=== PATIENT | female | born 1975 | race Two or more races ===

== ENCOUNTER 2021-05-11 14:02 | Outpatient (REF) | payer MEDICAID, SELFPAY ==
--- NOTE | ~2021-05-11 | MM_ITS ---
EXAMINATION: MM SCREENING DIGITAL BREAST TOMOSYNTHESIS, BILATERAL CLINICAL INFORMATION: Screening. Asymptomatic. The lifetime risk of breast cancer based on the Tyrer-Cuzick Model is 14%. COMPARISON: Mammography: None TECHNIQUE: Digital breast tomosynthesis is performed in both the craniocaudal and mediolateral oblique views along with computer-aided detection (CAD). Synthesized 2D images are generated from the tomosynthesis. FINDINGS: The breasts are heterogeneously dense, which may obscure small masses (ACR BI-RADS breast composition Category c). There are no significant masses, abnormal calcifications, or other abnormalities. MM/MM tomosynthesis screening BI IMPRESSION: No mammographic evidence of malignancy. ASSESSMENT: BI-RADS 1: Negative RECOMMENDATION: Routine annual mammography screening. This patient's information was entered into a reminder system with a target due date for their next mammogram.
== END 2021-05-11 14:03 | disposition home or self-care (01) ==
LOC: HO.MAMMO 14:02
PROVIDERS: Visit Provider Internal Medicine
DX: Z12.31 Encounter for screening mammogram for malignant neoplasm of breast (principal)
CPT/HCPCS: 77063; 77067

== ENCOUNTER 2021-06-01 14:13 | Outpatient (REF) | payer MEDICAID, SELFPAY ==
--- NOTE | ~2021-06-01 | US_ITS ---
EXAMINATION: US PELVIS CLINICAL INFORMATION: Excessive and frequent menstruation COMPARISON: None TECHNIQUE: Ultrasound of the pelvis is performed using both transabdominal and transvaginal transducers along with Doppler. Transvaginal imaging is performed due to inadequate visualization transabdominally. FINDINGS: The uterus is anteverted and measures 8.8 x 4.4 x 4.9 cm in dimension. No focal uterine lesion is seen. Endometrial thickness is normal measuring 0.4 cm. The right ovary measures 2.6 x 1.6 x 2.2 cm. There is a 2.3 x 1.5 x 2.1 cm complex right ovarian cyst with internal echoes. The left ovary measures 2.3 x 1.5 x 1.9 cm. There is a 1.5 x 1.4 x 1.3 cm simple left ovarian cyst. There is no fluid in the pelvis. US/US pelvic and transvaginal IMPRESSION: Normal-appearing uterus. 2.3 x 1.5 x 2.1 cm complex right ovarian cyst with internal echoes and small 1.5 cm simple left ovarian cyst.
== END 2021-06-01 14:14 | disposition home or self-care (01) ==
LOC: HO.HMGCX 14:13
PROVIDERS: Visit Provider Advanced Practice Midwife
DX: N92.0 Excessive and frequent menstruation with regular cycle (principal)
CPT/HCPCS: 76830; 76856

== ENCOUNTER 2021-07-12 14:25 | Outpatient (REF) | payer MEDICAID, SELFPAY ==
--- NOTE | ~2021-07-12 | US_ITS ---
EXAMINATION: US PELVIS CLINICAL INFORMATION: Right ovarian cyst COMPARISON: Pelvic ultrasound on 06/01/2021 TECHNIQUE: Ultrasound of the pelvis is performed using both transabdominal and transvaginal transducers along with Doppler. Transvaginal imaging is performed due to inadequate visualization transabdominally. FINDINGS: Uterus: The uterus is anteverted and measures 8.7 x 4.5 x 4.7 cm. The double wall endometrial thickness is 0.5 mm. The uterus is smooth in contour and has normal myometrial echogenicity. No visible fibroid. Adnexa: Both ovaries are visualized. There is normal color flow to the adnexa. There is no ovarian torsion. There is no pelvic ascites or fluid collection. Right ovary measures 2.4 x 1.1 x 1.7 cm. There is a 1.5 cm dominant follicle in the right ovary. Left ovary measures 1.9 x 1.0 x 1.5 cm. There is a 0.7 cm dominant follicle in left ovary. There are bilateral dilated periuterine veins. US/US pelvic and transvaginal IMPRESSION: 1. Bilateral ovarian follicles. 2. Dilated periuterine veins.
== END 2021-07-12 14:26 | disposition home or self-care (01) ==
LOC: HO.HMGCX 14:25
PROVIDERS: Visit Provider Advanced Practice Midwife
DX: N83.291 Other ovarian cyst, right side (principal)
CPT/HCPCS: 76830; 76856

== ENCOUNTER 2021-10-26 13:27 | Outpatient (REF) | payer MEDICAID, SELFPAY ==
[2021-10-26 17:03] LABS: CT PCR NOT DETECTED (Not Detect.); NG PCR NOT DETECTED (Not Detect.)
== END 2021-10-26 13:28 | disposition home or self-care (01) ==
LOC: HO.LAB 13:27
PROVIDERS: Visit Provider Obstetrics & Gynecology
DX: N93.9 Abnormal uterine and vaginal bleeding, unspecified (principal)
CPT/HCPCS: 87491; 87591; 99212

== ENCOUNTER 2021-11-20 13:06 | Outpatient (REF) | payer MEDICAID, SELFPAY | END 2021-11-20 13:07 | disposition home or self-care (01) | LOC: HO.LAB 13:06 | PROVIDERS: Visit Provider Obstetrics & Gynecology | DX: N93.9 Abnormal uterine and vaginal bleeding, unspecified (principal) | CPT/HCPCS: 58100; 81025; 88305 ==

== ENCOUNTER 2021-12-07 13:57 | Outpatient (REF) | payer MEDICAID, SELFPAY ==
[2021-12-07 15:14] LABS: Hematocrit 32.6 % (37.0-47.0); Hemoglobin 10.9 g/dl (12.0-16.0); Mean Corpuscular HGB Conc 33.4 g/dl (31.0-35.0); Mean Corpuscular Hemoglobin 30.9 pg (27.0-33.0); Mean Corpuscular Volume 92.4 fL (80.0-98.0); Platelet Count 229 X10*3/uL (160-400); Red Blood Count 3.53 X10*6/uL (4.20-5.50); Red Cell Distribution Width 13.8 % (11.0-16.0); White Blood Count 7.3 X10*3/uL (4.8-10.8)
[2021-12-07 16:10] LABS: HCG Quantitative < 2 mIU/mL; TSH reflex Free T4 0.47 uIU/mL (0.32-4.0)
== END 2021-12-07 13:58 | disposition home or self-care (01) ==
LOC: HO.LAB 13:57
PROVIDERS: Visit Provider Obstetrics & Gynecology
DX: N93.9 Abnormal uterine and vaginal bleeding, unspecified (principal)
CPT/HCPCS: 36415; 84443; 84702; 85027; 99212

== ENCOUNTER 2022-05-17 13:37 | Outpatient (REF) | payer MEDICAID, SELFPAY ==
--- NOTE | ~2022-05-17 | MM_ITS ---
EXAMINATION: MM SCREENING DIGITAL BREAST TOMOSYNTHESIS, BILATERAL CLINICAL INFORMATION: Screening. Asymptomatic. COMPARISON: Mammography: 05/11/2021; outside mammography 07/23/2016, 1014 ([place]) TECHNIQUE: Digital breast tomosynthesis is performed in both the craniocaudal and mediolateral oblique views along with computer-aided detection (CAD). Synthesized 2D images are generated from the tomosynthesis. FINDINGS: There are scattered areas of fibroglandular density (ACR BI-RADS breast composition Category b). There are no significant masses, abnormal calcifications, or other abnormalities. Parenchymal pattern is similar to prior studies. There is no developing density or architectural abnormality. The axilla and skin contours are unremarkable. No significant changes. MM/MM tomosynthesis screening BI IMPRESSION: No mammographic evidence of malignancy. ASSESSMENT: BI-RADS 1: Negative RECOMMENDATION: Routine annual mammography screening. This patient's information was entered into a reminder system with a target due date for their next mammogram.
== END 2022-05-17 13:38 | disposition home or self-care (01) ==
LOC: HO.MAMMO 13:37
PROVIDERS: PCP Internal Medicine; Visit Provider Internal Medicine
DX: Z12.31 Encounter for screening mammogram for malignant neoplasm of breast (principal)
CPT/HCPCS: 77063; 77067

== ENCOUNTER 2022-11-05 13:23 | Outpatient (REF) | payer MEDICAID, SELFPAY ==
[2022-11-06 10:09] LABS: CT PCR NOT DETECTED (Not Detect.); NG PCR NOT DETECTED (Not Detect.)
[2022-11-08 04:44] LABS: HPV mRNA E6/E7 rflx Not Detected (Not Detected)
== END 2022-11-05 13:24 | disposition home or self-care (01) ==
LOC: HO.LNP 13:23
PROVIDERS: PCP Internal Medicine; Visit Provider Obstetrics & Gynecology
DX: Z01.419 Encounter for gynecological examination (general) (routine) without abnormal findings (principal); Z11.51 Encounter for screening for human papillomavirus (HPV); N93.9 Abnormal uterine and vaginal bleeding, unspecified
CPT/HCPCS: 0353U; 81025; 87624; 88142

== ENCOUNTER 2022-11-16 12:52 | Outpatient (REF) | payer MEDICAID, SELFPAY ==
--- NOTE | ~2022-11-16 | US_ITS ---
EXAMINATION: US PELVIS CLINICAL INFORMATION: Abnormal uterine bleeding, 47-year-old, LMP about a month ago. COMPARISON: 07/12/2021 TECHNIQUE: Ultrasound of the pelvis is performed using both transabdominal and transvaginal transducers along with Doppler. Transvaginal imaging is performed due to inadequate visualization transabdominally. FINDINGS: Uterus: The uterus is anteverted and measures 7.7 x 3.6 x 4.9 cm. The double wall endometrial thickness is 4 mm mm. The uterus is smooth in contour and has normal myometrial echogenicity. Fundal intramural 1.2 cm fibroid. A posterior uterine body 2.4 cm intramural fibroid. Adnexa: Both ovaries are visualized. There is normal color flow to the adnexa. There is no ovarian torsion. There is no pelvic ascites or fluid collection. Right ovary measures 2.2 x 1.0 x 1.9 cm. Left ovary measures 2.4 x 1.6 x 2.0 cm. Redemonstration of dilated periuterine veins. US/US pelvic and transvaginal IMPRESSION: * Uterine fibroids. * Redemonstration of dilated periuterine veins.
== END 2022-11-16 12:53 | disposition home or self-care (01) ==
LOC: HO.US 12:52
PROVIDERS: PCP Internal Medicine; Visit Provider Obstetrics & Gynecology
DX: N93.9 Abnormal uterine and vaginal bleeding, unspecified (principal)
CPT/HCPCS: 76830; 76856

== ENCOUNTER 2022-12-05 14:22 | Outpatient (REF) | payer MEDICAID, SELFPAY | END 2022-12-05 14:23 | disposition home or self-care (01) | LOC: HO.LNP 14:22 | PROVIDERS: PCP Internal Medicine; Visit Provider Obstetrics & Gynecology | DX: N93.9 Abnormal uterine and vaginal bleeding, unspecified (principal) | CPT/HCPCS: 58100; 88305 ==

== ENCOUNTER → 2023-01-16 10:15 | Outpatient (BNVA) | payer MEDICAID, SELFPAY | PROVIDERS: PCP Internal Medicine; Visit Provider Obstetrics & Gynecology | DX: N93.9 Abnormal uterine and vaginal bleeding, unspecified (principal); D25.9 Leiomyoma of uterus, unspecified | CPT/HCPCS: 99212 ==

== ENCOUNTER 2023-02-07 13:28 | Outpatient (REF) | payer MEDICAID, SELFPAY ==
[2023-02-07 14:33] LABS: Estimated Average Glucose 105 mg/dL; Hemoglobin A1c % 5.3 %
[2023-02-07 14:44] LABS: Appearance Urine Cloudy; Color Urine Yellow; Glucose Urine UA Negative (Negative); Leukocyte Esterase Urine Negative (Negative); Nitrite Urine Negative (Negative); PH 5.5 (5.0-9.0); Urine Blood Negative (Negative); Urine Ketones Trace mg/dL (Negative); Urine Protein Negative (Neg-Trace)
[2023-02-07 18:42] LABS: Alanine Aminotransferase 11 U/L (0-31); Albumin Level 4.2 g/dL (3.5-5.0); Alkaline Phosphatase 83 U/L (39-117); Anion Gap 15 (12-20); Aspartate Amino Transferase 16 U/L (5-31); Bilirubin Total 0.3 mg/dL (0.0-1.0); Blood Urea Nitrogen 21 mg/dL (9-16); Calcium 9.2 mg/dL (8.4-10.2); Carbon Dioxide 20 mmol/L (22-29); Chloride 107 mmol/L (96-108); Estimated Glomerular Filt Rate > 60; Glucose Random 93 mg/dL (60-115); Potassium 3.8 mmol/L (3.3-5.1); Sodium 138 mmol/L (135-145); Total Protein 7.3 g/dL (6.5-8.0)
== END 2023-02-07 13:29 | disposition home or self-care (01) ==
LOC: CF 13:28
PROVIDERS: Visit Provider Internal Medicine
DX: R35.89 Other polyuria (principal)
CPT/HCPCS: 36415; 80053; 81003; 83036

== ENCOUNTER 2023-02-09 13:58 | Emergency (ER) | payer MEDICAID, SELFPAY ==
--- NOTE | 2023-02-09 14:01 | ED.GENADULT ---
HPI - General Adult General Chief complaint: Back Pain/Injury Stated complaint: L side pain Time Seen by Provider: 02/09/23 14:28 Source: patient and RN notes reviewed Mode of arrival: ambulatory Limitations: no limitations History of Present Illness HPI narrative: This is a [id number]-female presenting to the emergency department with complaints of right sided back pain x 2 days. Pt states that yesterday she had noticed some pain to her back. She staaates that while she was reaching up to clean her ceiling fan, she immediately had worsening right sided back pain. Pt reports pain with movement and with palpation. She has takaen tylenol without any relief. No fevers, cchills, chest pain, shortness of breath, abdominal pain, nausea, vomiting or diarrhea. No dysuria, hematuria, or urinary urgency, or frequency. complaint: back pain Onset (ago): day(s) Location: back Radiation: non-radiation Severity: moderate Quality: aching Pain Consistency: constant Relieving factors: none Exacerbating factors: none Associated symptoms: denies other symptoms Treatments prior to arrival: none Related Data Home Medications Medication Instructions Recorded Confirmed ibuprofen 800 mg tablet 800 mg PO DAILY PRN mild pain 11/05/22 mirtazapine 15 mg tablet 15 mg PO BEDTIME 11/05/22 Previous Rx's Medication Instructions Recorded ferrous sulfate 325 mg (65 mg 325 mg PO DAILY 30 days #30 tabs 12/07/21 iron) tablet,delayed release acetaminophen 325 mg capsule 650 mg PO Q6H PRN pain #30 caps 02/09/23 (Tylenol) cyclobenzaprine 5 mg tablet 5 mg PO TID PRN muscle spasm #14 02/09/23 tabs ibuprofen 600 mg tablet 600 mg PO Q6H PRN pain #30 tabs 02/09/23 Allergies Allergy/AdvReac Type Severity Reaction Status Date / Time No Known Allergies Allergy Verified 02/09/23 14:08 [No Known Allergies*] Review of Systems Review of Systems: Yes all other systems are reviewed and are negative Constitutional: Constitutional: Reports as per HPI [facility] Past Medical History Medical History Migraines Surgical History Hx of colonoscopy Family History Family History Paternal Aunt Breast CA Mother Colon cancer Father Prostate cancer Social History Social History Alcohol intake: current Alcohol intake frequency: a few times a month Patient Tobacco Use Status: Current someday Tobacco user Smoked in Last 30 Days: Yes Use of substances other than those prescribed or required for medical reasons: Yes Substance Use Type: Marijuana Advance Directives: No Advance Directives Information Provided: No Physical Exam ED Vital Signs: Vital Signs - 24 hr 02/09/23 14:03 Temperature 97.3 F Pulse Rate 86 Respiratory Rate 20 Blood Pressure 109/46 L Pulse Oximetry 97 Oxygen Delivery Method Room Air BMI result Body Mass Index 22.4 Const General: cooperative, comfortable and no acute distress Orientation/consciousness: patient oriented x3 Limitations: no limitations HENMT Head: Yes normal to inspection, Yes normocephalic and Yes atraumatic Ears: hearing grossly normal bilaterally General nose exam: Normal external nose present Face and sinus: Yes normal facial exam Mouth: Normal oral and palatal mucosa present, oropharynx normal and moist mucous membranes Throat: Yes posterior oropharynx normal Eyes General: appearance normal, both eyes and all related structures Eyelids: Yes eyelids normal Conjunctivae: conjunctivae normal Sclerae: sclerae normal Pupils: Equal, round and reactive pupils present EOM: EOMs intact bilaterally Neck Neck: Yes normal visual inspection, Yes full ROM and Yes no lymphadenopathy Lymphatic: no lymphadenopathy noted Chest Chest palpation & inspection: normal inspection of the chest Resp Effort & Inspection: normal respiratory effort and able to speak in complete sentences Auscultation: clear to auscultation bilaterally, no crackles, no rales, no rhonchi and no wheezes Cardio Rate: regular rate Rhythm: regular rhythm Heart sounds: S1 normal heart sound present and S2 normal heart sound present GI Inspection: Yes normal to inspection Back/Spine/Pelvis Other: Right lumbar paraspinous muscle TTP with spasm noted. patellar reflexes 2+ bilaterally. Skin General skin exam: no rashes or lesions noted Trauma: no lacerations or abrasions Wounds: no wounds Neuro General: patient oriented x3 and moves all extremities Cranial nerves: Yes Equal, round and reactive pupils present Extrem General: Yes normal to inspection Right upper extremity: normal to inspection Left upper extremity: normal to inspection Right lower extremity: normal to inspection Left lower extremity: normal to inspection Course Course Course Narrative: This is a rapid medical exam: Additional HPI, ROS, PE not included below will be deferred to primary provider. Patient is a 47-marjorie-old female with history of abnormal uterine bleeding, uterine myoma presenting to the emergency department with complaint of right flank pain since last night. States that she feels as though she pulled a muscle, was cleaning an overhead fan yesterday feels symptoms may be related. Has applied heat, taken ibuprofen without relief. Denies any urinary symptoms. Reports that she saw her PCP Saturday, told iron was low, did not get UA results. Does reporting having foul smelling vaginal discharge recently which has since resolved, has already been tested and is awaiting results. Plan: UA, labs Reevaluation(s) Reevaluation #1: UA without any hematuria or evidence of infection. Labs unremarkable. Beta HCG quant is 4. Pt's last menstrual cycle was 3 months ago but pt reports that she is approaching perimenopause phase. urine HCG is negative. This is just above our negative marker for HCG, I advised patient to have repeat blood levels performed outpatient in one week. Pt has no suprapubic TTP and is seeing her OBGYN at this time. No current vaginal discharge or bleeding. D/C patient with MSK instructions. Given return precautions if any new or worsening symptoms occur. Medications Administered Discontinued Medications Generic Name Dose Route Start Last Admin Trade Name Joellen PRN Reason Stop Dose Admin Diazepam 2 mg 02/09/23 16:47 02/09/23 16:57 Diazepam 2 Mg Tablet PO 02/09/23 16:48 2 mg ONCE ONE Administration Medical Decision Making Medical Decision Making [facility] Narrative: This is a 2-kssy[age]ev[age]-female presenting to the emergency department with complaints of right sided back pain x 2 days. Pt has TTP over right lumbar musculature. Pt has no urinary symptoms. Differential diagnoses includes lumbago versus musculoskeletal spasm / strain. No back pain red flags on history or physical. Unlikely cauda equina syndrome (no bowel or urinary incontinence/retention, no saddle anesthesia, no distal weakness), pyelonephritis (afebrile, no CVAT, no urinary symptoms). Given the clinical picture, no indication for imaging at this time. Differential Diagnosis Differential Diagnoses: The differential diagnosis associated with the presentation includes See above Lab Data [facility] Lab Attestation statement: I reviewed the patient's lab results. 02/09/23 14:19 02/09/23 14:19 Labs: Lab Results 02/09/23 02/09/23 02/09/23 Range/Units 14:19 14:19 14:19 WBC 7.1 (4.8-10.8) X10*3/uL RBC 4.06 L (4.20-5.50) X10*6/uL Hgb 12.6 (12.0-16.0) g/dl Hct 36.6 L (37.0-47.0) % MCV 90.1 (80.0-98.0) fL MCH 31.0 (27.0-33.0) pg MCHC 34.4 (31.0-35.0) g/dl RDW 13.1 (11.0-16.0) % Plt Count 268 (160-400) X10*3/uL MPV 9.4 (9.4-12.3) fL Immature Gran % (Auto) 0.3 (0.0-0.4) % Neut % (Auto) 54.6 (45-73) % Lymph % (Auto) 35.0 (20-40) % [place] % (Auto) 5.8 (2-11) % Eos % (Auto) 3.0 (0-4) % Baso % (Auto) 1.3 (0-2) % Lymph # (Auto) 2.5 (1.2-4.9) X10*3/uL [place] # (Auto) 0.4 (0.1-1.2) X10*3/uL Eos # (Auto) 0.2 (0.0-0.4) X10*3/uL Baso # (Auto) 0.1 (0.0-0.2) X10*3/uL Abs Immat Gran (auto) 0.02 (0.00-0.03) X10*3/uL Absolute Neuts (auto) 3.9 (2.0-8.3) x10*3/uL Absolute Nucleated RBC 0.000 (0.0-0.012) X10*3/uL Nucleated RBC % (auto) 0.0 (0.0-0.2) /100WBC Sodium 140 (135-145) mmol/L Potassium 4.2 (3.3-5.1) mmol/L Chloride 108 (96-108) mmol/L Carbon Dioxide 22 (22-29) mmol/L Anion Gap 14 (12-20) BUN 20 H (9-16) mg/dL Creatinine 0.75 (0.5-1.4) mg/dL Estim Creat Clear Calc 74.1 Estimated GFR > 60 Random Glucose 128 H (60-115) mg/dL Calcium 9.9 D (8.4-10.2) mg/dL Total Bilirubin 0.5 (0.0-1.0) mg/dL AST 22 (5-31) U/L ALT 14 (0-31) U/L Alkaline Phosphatase 83 (39-117) U/L Total Protein 7.5 (6.5-8.0) g/dL Albumin 4.2 (3.5-5.0) g/dL Beta HCG, Quant 4 mIU/mL Urine Color Urine Appearance Urine pH (5.0-9.0) Ur Specific [place] (1.005-1.025) Urine Protein (Neg-Trace) mg/dL Urine Glucose (UA) (Negative) mg/dL Urine Ketones (Negative) mg/dL Urine Blood (Negative) Urine Nitrite (Negative) Ur Leukocyte Esterase (Negative) Urine Test (NEGATIVE) 02/09/23 02/09/23 Range/Units 15:18 15:18 WBC (4.8-10.8) X10*3/uL RBC (4.20-5.50) X10*6/uL Hgb (12.0-16.0) g/dl Hct (37.0-47.0) % MCV (80.0-98.0) fL MCH (27.0-33.0) pg MCHC (31.0-35.0) g/dl RDW (11.0-16.0) % Plt Count (160-400) X10*3/uL MPV (9.4-12.3) fL Immature Gran % (Auto) (0.0-0.4) % Neut % (Auto) (45-73) % Lymph % (Auto) (20-40) % [place] % (Auto) (2-11) % Eos % (Auto) (0-4) % Baso % (Auto) (0-2) % Lymph # (Auto) (1.2-4.9) X10*3/uL [place] # (Auto) (0.1-1.2) X10*3/uL Eos # (Auto) (0.0-0.4) X10*3/uL Baso # (Auto) (0.0-0.2) X10*3/uL Abs Immat Gran (auto) (0.00-0.03) X10*3/uL Absolute Neuts (auto) (2.0-8.3) x10*3/uL Absolute Nucleated RBC (0.0-0.012) X10*3/uL Nucleated RBC % (auto) (0.0-0.2) /100WBC Sodium (135-145) mmol/L Potassium (3.3-5.1) mmol/L Chloride (96-108) mmol/L Carbon Dioxide (22-29) mmol/L Anion Gap (12-20) BUN (9-16) mg/dL Creatinine (0.5-1.4) mg/dL Estim Creat Clear Calc Estimated GFR Random Glucose (60-115) mg/dL Calcium (8.4-10.2) mg/dL Total Bilirubin (0.0-1.0) mg/dL AST (5-31) U/L ALT (0-31) U/L Alkaline Phosphatase (39-117) U/L Total Protein (6.5-8.0) g/dL Albumin (3.5-5.0) g/dL Beta HCG, Quant mIU/mL Urine Color Yellow Urine Appearance Cloudy Urine pH 5.5 (5.0-9.0) Ur Specific [place] 1.025 (1.005-1.025) Urine Protein Negative (Neg-Trace) mg/dL Urine Glucose (UA) Negative (Negative) mg/dL Urine Ketones Trace (Negative) mg/dL Urine Blood Negative (Negative) Urine Nitrite Negative (Negative) Ur Leukocyte Esterase Negative (Negative) Urine Test NEGATIVE (NEGATIVE) Radiology Impression Discussion of test interpretation with radiology: I have reviewed the radiologist's reading. External Record Review External record reviewed: Inpatient record, Office record, Outpatient record, Prior outpatient labs, Prior outpatient radiology, Primary care record and Outside ED record Discharge Plan Discharge Clinical Impression: Lumbar paraspinal muscle spasm Patient Disposition: Home, Self-Care Instructions: Muscle Spasm (ED) Additional Instructions: Your symptoms are likely due to muscle spasms. Your urine did not show signs of infection. Your blood hCG level was slightly elevated. Please have this rechecked in 1 week at your primary care office or OBGYN. Take prescribed medication as directed. Gentle stretching massage can help with your symptoms. Ice or heat the area as needed symptomatic relief. If any new or worsening symptoms occur including but not limited to chest pain, shortness of breath, urinary symptoms, abdominal pain, please return for re-evaluation. Prescriptions: New cyclobenzaprine 5 mg tablet 5 mg PO TID PRN (Reason: muscle spasm) Qty: 14 0RF ibuprofen 600 mg tablet 600 mg PO Q6H PRN (Reason: pain) Qty: 30 0RF acetaminophen [Tylenol] 325 mg capsule 650 mg PO Q6H PRN (Reason: pain) Qty: 30 0RF No Action ferrous sulfate 325 mg (65 mg iron) tablet,delayed release (DR/EC) 325 mg PO DAILY 30 Days Qty: 30 1RF mirtazapine 15 mg tablet 15 mg PO BEDTIME ibuprofen 800 mg tablet 800 mg PO DAILY PRN (Reason: mild pain) Interventions: ED Discharge Assessment Last Done: 02/09/23 16:59 Discharge Date/Time: 02/09/23 17:03
[2023-02-09 14:03] VITALS: BP 109/46; PULSE 86; RESP 20; TEMP 36.3; O2SAT 97; BMI 22.4
[2023-02-09 14:24] LABS: Basophils Absolute Auto 0.1 X10*3/uL (0.0-0.2); Basophils Percent Auto 1.3 % (0-2); Eosinophils Absolute Auto 0.2 X10*3/uL (0.0-0.4); Hematocrit 36.6 % (37.0-47.0); Hemoglobin 12.6 g/dl (12.0-16.0); Imm Gran Abs Auto 0.02 X10*3/uL (0.00-0.03); Imm Gran Pct Auto 0.3 % (0.0-0.4); Lymphocytes Absolute Auto 2.5 X10*3/uL (1.2-4.9); MANUAL DIFF FLAG NO; Mean Corpuscular HGB Conc 34.4 g/dl (31.0-35.0); Mean Corpuscular Volume 90.1 fL (80.0-98.0); Mean Platelet Volume 9.4 fL (9.4-12.3); Monocytes Absolute Auto 0.4 X10*3/uL (0.1-1.2); Monocytes Percent Auto 5.8 % (2-11); Neutrophils Absolute Auto 3.9 x10*3/uL (2.0-8.3); Neutrophils Percent Auto 54.6 % (45-73); Platelet Count 268 X10*3/uL (160-400); Red Blood Count 4.06 X10*6/uL (4.20-5.50); Red Cell Distribution Width 13.1 % (11.0-16.0); White Blood Count 7.1 X10*3/uL (4.8-10.8)
--- OUTSIDE RECORDS SUMMARY | 2023-02-09 14:30 | XMS_ITS ---
Author Name Alli Schaefer Address [address] [place] [address] Organization [facility] Address [address] [place] [address] Care Team Providers Care Police Booking Officer Name Role Phone Alli Schaefer Unavailable [phone] PROBLEMS Type Condition ICD9-CM Code YCE75-SU Code Onset Dates Condition Status SNOMED Code Problem Encounter for screening for malignant neoplasm of colon Z12.11 Active 084782469 Problem History of adenomatous polyp of colon Z86.010 Active 490599910 Problem Preprocedural examination Z01.818 Active [id number] Problem Family history of colon cancer Z80.0 Active [id number] ALLERGIES No Known Allergies ENCOUNTERS Encounter Location Date Diagnosis [facility] [address] [place] [id number] Dec, Preprocedural examination Z01.818 ; History of adenomatous polyp of colon Z86.010 ; Encounter for screening for malignant neoplasm of colon Z12.11 and Family history of colon cancer Z80.0 [facility] [address] [place] [id number] Sep, [facility] [address] [place] [phone] Jul, [facility] [address] [place] [phone] Jul, [facility] [address] [place] [phone] Jul, Preprocedural examination Z01.818 ; History of adenomatous polyp of colon Z86.010 ; Encounter for screening for malignant neoplasm of colon Z12.11 and Family history of colon cancer Z80.0 [facility] [address] [place] [phone] Mar, [facility] [address], [place] [phone] November, [facility] [address] [place] [phone] November, [facility] [address] [place] [phone] November, Abdominal pain, left lower quadrant 789.04 ; Special screening for malignant neoplasms, colon V76.51 and Personal history of colonic polyps V12.72 [facility] [address], [place] [id number] May, [facility] [address] [place], [place] [phone] Jun, IMMUNIZATIONS No Known Immunizations SOCIAL HISTORY Qualifiers Date Current Smoker REASON FOR REFERRAL FUNCTIONAL STATUS PLAN OF CARE Activity Details VITAL SIGNS Weight 120 lbs 2023-01-09 Weight 120 lbs 2017-07-17 Weight 114 lbs 2011-11-28 Height 62 in 2023-01-09 Height 62 in 2017-07-17 Height 62 in 2011-11-28 BMI 21.95 kg/m2 2023-01-09 BMI 21.95 kg/m2 2017-07-17 BMI 20.85 kg/m2 2011-11-28 Heart Rate 72 /min 2017-07-17 Temperature 97.7 degrees Fahrenheit Blood pressure systolic 000 mm Hg Blood pressure diastolic 00 mm Hg 2022-12 MEDICATIONS Medication Instructions Dosage Frequency Start Date End Date Du ration Status Ibuprofen 200 MG Orally prn 1 tablet with food or milk as needed Active PARoxetine HCl 20 MG Oral prn TAKE 1/2 TABLET BY MOUTH EVERY AM FOR 4-7 DAYS THEN 1 TABLET BY MOUTH EVERY AM Active PROCEDURES Procedure Date Ordered Result Body Site BP SCR NOT PRFRM REC REASON NOS January 09, 2023 Pt scrn tbco and id as user January 09, 2023 DOC MEDS VERIFIED W/PT OR RE January 09, 2023 RESULTS Name Result Date Reference Range GI BIOPSY 2017-09-16 G.I. BIOPSY REASON FOR VISIT screening,hx polyps, fam hx colon ca, Patient presents today for a screening colon, Fam hx colon ca, hx of polyps, screening, please send colon prep to pharmacy, please schedule colon on 3-5-18, PATIENT PRESENTS TODAY FOR screening colonoscopy, Pt no show, Patient presents today for colon recall, PRE-COLON Insurance Providers Health Insurance Type Health Plan Insurance Address Health Plan Insurance Phone Health Plan Insurance Name Health Plan Coverage Dates Member ID Patient Relationship to Subscriber Patient Address Patient Phone Patient Name Patient Date of Subscriber ID Subscriber Name Subscriber Date of Group No MEDICAID OF [employer] [address] [facility] [id number] MED[employer] OF [employer] self KIKE VANN [id number] 5 [facility] [address] [address] [facility] [id number] [facility] self KIKE VANN [id number]
[2023-02-09 14:41] LABS: Alanine Aminotransferase 14 U/L (0-31); Albumin Level 4.2 g/dL (3.5-5.0); Alkaline Phosphatase 83 U/L (39-117); Anion Gap 14 (12-20); Aspartate Amino Transferase 22 U/L (5-31); Bilirubin Total 0.5 mg/dL (0.0-1.0); Blood Urea Nitrogen 20 mg/dL (9-16); Calcium 9.9 mg/dL (8.4-10.2); Carbon Dioxide 22 mmol/L (22-29); Chloride 108 mmol/L (96-108); Creatinine Clr Calc Pharmacy 74.1; Estimated Glomerular Filt Rate > 60; Glucose Random 128 mg/dL (60-115); Potassium 4.2 mmol/L (3.3-5.1); Sodium 140 mmol/L (135-145); Total Protein 7.5 g/dL (6.5-8.0)
[2023-02-09 14:49] LABS: HCG Quantitative 4 mIU/mL
--- NOTE | 2023-02-09 14:50 | PC.NURSE ---
pt presents with slow balanced gait to exam room, pt stst she was cleaning and began experiencing pain, pt took [employer] which she sts has not been helping, reports 10/10 pain that eases with application of heat. call mcqueen within reach
[2023-02-09 15:50] LABS: Appearance Urine Cloudy; Color Urine Yellow; Glucose Urine UA Negative (Negative); Leukocyte Esterase Urine Negative (Negative); Nitrite Urine Negative (Negative); PH 5.5 (5.0-9.0); Specific Gravity - Urine 1.025 (1.005-1.025); Urine Blood Negative (Negative); Urine Ketones Trace mg/dL (Negative); Urine Protein Negative (Neg-Trace)
[2023-02-09 15:51] LABS: UPreg QC Valid YES; Urine Pregnancy NEGATIVE (NEGATIVE)
[2023-02-09] MEDS: diazePAM 2 MG TABLET PO (16:57)
== END 2023-02-09 17:03 | disposition home or self-care (01) ==
PROVIDERS: Physician Assistant Medical; Registered Nurse Emergency; Emergency Provider Student in an Organized Health Care Education/Training Program
DX: M62.830 Muscle spasm of back (principal); M54.50 Low back pain, unspecified; F17.200 Nicotine dependence, unspecified, uncomplicated; F12.90 Cannabis use, unspecified, uncomplicated; Z79.899 Other long term (current) drug therapy
CPT/HCPCS: 36415; 80053; 81003; 81025; 84702; 85025; 99283

== ENCOUNTER 2023-05-23 13:47 | Outpatient (REF) | payer MEDICAID, SELFPAY | END 2023-05-23 13:48 | disposition home or self-care (01) | LOC: HO.MAMMO 13:47 | PROVIDERS: PCP Internal Medicine; Visit Provider Internal Medicine | DX: Z12.31 Encounter for screening mammogram for malignant neoplasm of breast (principal) | CPT/HCPCS: 77063; 77067 ==

== ENCOUNTER → 2023-05-23 14:00 | Outpatient (BNV) | payer MEDICAID, SELFPAY | PROVIDERS: PCP Internal Medicine; Visit Provider Radiology Diagnostic Radiology | DX: Z12.31 Encounter for screening mammogram for malignant neoplasm of breast (principal) | CPT/HCPCS: 77063; 77067 ==

== ENCOUNTER 2023-07-01 07:42 | Day surgery (SDC) | payer MEDICAID, SELFPAY ==
--- NOTE | 2023-04-09 09:07 | HO.ANESPROP2 ---
HPI - Anesthesia Eval Consult details Narrative: 47yo F for Colonoscopy PMFSH Active Problems Active Problems: All Active Problems (Updated 04/09/23 @ 06:44 by Kira Magana, RN) Uterine myoma (Acute) Well woman exam (Acute) Abnormal uterine bleeding (Acute) Past Medical History Medical History (Updated 04/09/23 @ 06:44 by Kira Magana RN) Abnormal colonoscopy Depression Anxiety Migraines Family History Family History Paternal Aunt Breast CA Mother Colon cancer Father Prostate cancer Surgical History Surgical History Hx of colonoscopy Social History Social History Alcohol intake: current Alcohol intake frequency: a few times a month Patient Tobacco Use Status: Current someday Tobacco user Smoked in Last 30 Days: Yes Use of substances other than those prescribed or required for medical reasons: Yes Substance Use Type: Marijuana Advance Directives: No Advance Directives Information Provided: No Meds Allergies Allergy/AdvReac Type Severity Reaction Status Date / Time No Known Allergies Allergy Verified 02/09/23 14:08 [No Known Allergies*] Home Medications Medication Instructions Recorded Confirmed Last Taken Type ibuprofen 800 mg tablet 800 mg PO DAILY PRN mild pain 11/05/22 Unknown History mirtazapine 15 mg tablet 15 mg PO BEDTIME 11/05/22 Unknown History Exam Exam Date and Time: April 09, 2023 0907 Pertinent Lab Results Pertinent Lab Results: Laboratory Tests 02/09/23 14:19 WBC 7.1 Hgb 12.6 Hct 36.6 L Plt Count 268 Sodium 140 Potassium 4.2 Chloride 108 Carbon Dioxide 22 BUN 20 H Creatinine 0.75 Assessment and Plan Assessment Anesthesia Assessment: Chart Reviewed
[2023-06-27 13:34] VITALS: BMI 21.9
--- NOTE | 2023-06-28 09:12 | HO.ANESPROP2 ---
Documented by User: Mariann Hernandez NP 06/28/23 09:13 HPI - Anesthesia Eval Consult details Narrative: 48yo F for Colonoscopy PMFSH Active Problems Active Problems: All Active Problems (Updated 04/09/23 @ 06:44 by Kira Magana RN) Uterine myoma (Acute) Well woman exam (Acute) Abnormal uterine bleeding (Acute) Past Medical History Medical History Abnormal colonoscopy Depression Anxiety Migraines Family History Family History Paternal Aunt Breast CA Mother Colon cancer Father Prostate cancer Surgical History Surgical History Hx of colonoscopy Social History Social History (Updated 07/01/23 @ 10:02 by Fabi Stovall MD) Alcohol intake: current Alcohol intake frequency: a few times a month Patient Tobacco Use Status: Current everyday Tobacco user Tobacco use type: Cigarette Cigarettes Per Day: 5 Substance Use Type: Marijuana Meds Allergies Allergy/AdvReac Type Severity Reaction Status Date / Time No Known Allergies Allergy Verified 02/09/23 14:08 [No Known Allergies*] Home Medications Medication Instructions Recorded Confirmed Last Taken Type ibuprofen 800 mg tablet 800 mg PO DAILY PRN mild pain 11/05/22 06/27/23 Unknown History mirtazapine 15 mg tablet 15 mg PO BEDTIME 11/05/22 06/27/23 Unknown History hydroxyzine HCl 25 mg tablet 25 mg PO DAILY PRN itch 06/27/23 06/27/23 Unknown History Exam Height,Weight and Vital Signs: Height 5 ft 2 in Weight 54.431 kg Assessment and Plan Assessment Anesthesia Assessment: Chart Reviewed Documented by User: Fabi Stovall MD 07/01/23 10:04 PMFSH Active Problems Active Problems: All Active Problems (Updated 07/01/23 @ 09:56 by Fabi Stovall MD) Uterine myoma (Acute) Well woman exam (Acute) Abnormal uterine bleeding (Acute) Smoker last yesterday Marijuana last yesterday Denies JANA Past Medical History Medical History Abnormal colonoscopy Depression Anxiety Migraines Family History Family History Paternal Aunt Breast CA Mother Colon cancer Father Prostate cancer Family history of problems with anesthesia: No Surgical History Surgical History Hx of colonoscopy History of Problems with Anesthesia: No Social History Social History (Updated 07/01/23 @ 10:02 by Fabi Stovall MD) Alcohol intake: current Alcohol intake frequency: a few times a month Patient Tobacco Use Status: Current everyday Tobacco user Tobacco use type: Cigarette Cigarettes Per Day: 5 Substance Use Type: Marijuana Meds Allergies Allergy/AdvReac Type Severity Reaction Status Date / Time No Known Allergies Allergy Verified 02/09/23 14:08 [No Known Allergies*] Home Medications Medication Instructions Recorded Confirmed Last Taken Type ibuprofen 800 mg tablet 800 mg PO DAILY PRN mild pain 11/05/22 06/27/23 Unknown History mirtazapine 15 mg tablet 15 mg PO BEDTIME 11/05/22 06/27/23 Unknown History hydroxyzine HCl 25 mg tablet 25 mg PO DAILY PRN itch 06/27/23 06/27/23 Unknown History Exam Height,Weight and Vital Signs: Height 5 ft 2 in Weight 54.431 kg Vital Signs Temp Pulse Resp BP Pulse Ox O2 Del Method 07/01/23 09:07 97.8 F 70 16 108/62 96 Room Air Pertinent Lab Results Pertinent Lab Results: Lab Results 07/01/23 Range/Units 08:50 Urine Test NEGATIVE (NEGATIVE) Airway Mallampati Class: II TM Dist: >3cm Neck ROM: Full Loose/Missing/Broken Teeth: No (Denies broken, loose, missing teeth) Heart: RRR Lungs: CTAB Assessment and Plan Assessment Anesthesia Assessment: Anesthesia Plan Discussed Final Anesthetic Review Family History of Problems with Anesthesia: No History of Problems with Anesthesia: No NPO: Yes ASA Class: II Final Preanesthetic Review: No Changes in Pt Med Stat, Meds/Allgs Chart Reviewed, Consent Obtained/Reviewed and Anes Risks/Benef Reviewed Patient Risk: Intermediate Procedure Risk: Low Assessment/Block/Sedation in SS: Assess/Block/Sedation-SS Anesthetic Plan Anesthetic Plan: MAC: Disposition: Standard PACU
[2023-07-01 09:07] VITALS: BP 108/62; PULSE 70; RESP 16; TEMP 36.6; O2SAT 96
[2023-07-01 09:08] LABS: UPreg QC Valid YES; Urine Pregnancy NEGATIVE (NEGATIVE)
--- NOTE | 2023-07-01 10:50 | P.BOP_ITS ---
Brief Operative Note Date of Service: 07/01/23 Pre-op diagnosis: Screening Post-op diagnosis: other (Same, R/O polyp) Procedure: Colonoscopy to the cecum and TI with biopsies Surgeon: Alli Schaefer MD Anesthesia: MAC Was an Textile Cutting Machine Operator used for this Procedure?: No Estimated blood loss (mL): 2.0 Pathology: other (A. Biopsies at 20cm) Condition: stable Disposition: PACU
[2023-07-01 10:51] VITALS: BP 107/64; PULSE 92; RESP 16; TEMP 36.2; O2SAT 99
[2023-07-01 11:06] VITALS: BP 115/66; PULSE 85; RESP 18; TEMP 36.3; O2SAT 99
--- NOTE | 2023-07-01 11:50 | OP_ITS ---
DATE OF SERVICE: 07/01/2023 SURGEON: Alli Schaefer MD INDICATIONS: The patient presents for evaluation of personal history of tubular adenoma of the colon, family history of colon cancer, and colorectal cancer screening. Full consent obtained from her for that, including risks of bleeding and perforation. PREOPERATIVE DIAGNOSIS: POSTOPERATIVE DIAGNOSIS: PROCEDURE PERFORMED: Colonoscopy to the cecum and terminal ileum with biopsies. ESTIMATED BLOOD LOSS: COMPLICATIONS: ANESTHESIA: Medication used; monitored anesthesia care. ASSISTANTS: SPECIMENS: PREOPERATIVE DIAGNOSES: Personal history of tubular adenoma of the colon, family history of colon cancer, colorectal cancer screening. POSTOPERATIVE DIAGNOSES: Personal history of tubular adenoma of the colon, family history of colon cancer, colorectal cancer screening, rule out polyp, internal hemorrhoids. DESCRIPTION OF PROCEDURE: The patient was placed in the left lateral decubitus position. The digital rectal exam revealed no abnormalities. The Olympus video-pediatric colonoscope was entered into the rectum and advanced easily to the cecum. Once in the cecum, I did identify normal-appearing cecal pouch with appendiceal orifice and a normal-appearing ileocecal valve. The terminal ileum was cannulated and appeared normal. Scope was withdrawn back in the colon. The entire cecum and ileocecal valve appeared normal. The scope was slowly withdrawn assessing all mucosal surfaces carefully. Preparation was excellent. At 20 cm, there was an area of some edema and erythema on a fold that was quite soft and did not definitively represent polyp tissue. I suspect this was just some edema and erythema in relation to the prep. Multiple biopsies were obtained from it. I did not visualize any other areas of abnormality such as polyps, colitis, nor angiodysplasia. In the rectum, scope was retroflexed, visualizing internal hemorrhoids, but no other pathology. The rectal mucosa appeared normal. The scope was straightened and withdrawn from the patient. She tolerated the procedure well and was returned to the recovery area in stable condition. IMPRESSION: 1. Biopsies at 20 cm, rule out polyp. 2. Internal hemorrhoids. PLAN: The results of biopsy will be checked. Assuming there is no evidence of any adenomatous tissue, I would recommend a repeat colonoscopy in 5 years for further screening. She will otherwise see me on a p.r.n. basis. She was instructed to be sure that her children get screened with colonoscopies by age 25 given her own history of a significant colon polyp and her mother's history of colon cancer. She will otherwise see me in 5 years for the followup colonoscopy. MD LUZ ELENA Deluca/ALEXY / [id number]
== END 2023-07-01 11:24 | disposition home or self-care (01) ==
PROVIDERS: Nurse Practitioner; PCP Internal Medicine; Visit Provider Internal Medicine
PROC: 0DJD8ZZ Inspection of Lower Intestinal Tract, Via Natural or Artificial Opening Endoscopic (ICD-10-PCS; CPT 45378; principal; 2023-07-01 09:30)
DX: Z12.11 Encounter for screening for malignant neoplasm of colon (principal); K64.8 Other hemorrhoids; Z80.0 Family history of malignant neoplasm of digestive organs; Z86.010 Personal history of colon polyps; F17.210 Nicotine dependence, cigarettes, uncomplicated
CPT/HCPCS: 45380; 81025; 88305; J2704

== ENCOUNTER 2023-07-12 17:42 | Emergency (ER) | payer OTHER, MEDICAID, SELFPAY ==
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
[2023-07-12 19:14] VITALS: BP 139/82; PULSE 67; RESP 18; TEMP 36.6; O2SAT 99; BMI 23.8
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
--- OUTSIDE RECORDS SUMMARY | 2023-07-12 20:02 | XMS_ITS | Patient Health Record ---
Author Name Unknown Organization [facility] Address [address] [place] [address] Care Team Providers Care Tannery Worker Name Role Phone Vinayak Kaur M.D. Primary Care Provider Un available Alli Schaefer Unavailable [phone] ALLERGIES No Known Allergies RESULTS Component Value Reference Range Notes Pathology (Not yet reviewed by provider) Interpretation: Performing Lab:[facility], [address] [place] [phone] Notes/Report: Ur Preg Test Reviewed date:07/01/2023 05:47:15 PM Interpretation: Performing Lab:[facility], [address] [place] [id number] Notes/Report: Urine NEGATIVE NEGATIVE This test was developed to detect early . False negative results may occur after the 5th - 7th week of when using this test method. If clinically indicated, consider a serum hCG. REASON FOR REFERRAL Referring Provider First Name Miracle Referring Provider Last Name Gege Referring Provider Speciality Internal M edicine Referred Organization [facility] Referred Provider Alli Schaefer Referred Address [address] [place] [address],[address],[place], [place],[address], Referred Provider Specialty Gastroentero logy Referral Priority Routine MEDICATIONS Medication SIG (Take, Route, Frequency, Duration) Notes Start Date End Date Status Dulcolax (colon prep) 5 MG take at 3:00 p.m and 7:00p.m. Orally two tablets twice a day for one day for 1 day 06/29/2023 Active MiraLax (colon prep) 17 GM/SCOOP 1 238Gm bottle mixed with Gatorade or Crystal Light Orally begin at 5:00 p.m. the day before the procedure for 1 days 06/29/2023 Active Ibuprofen 200 MG 1 tablet with food o r milk as needed Orally prn Active PARoxetine HCl 20 MG TAKE 1/2 TABLET BY MOUTH EVERY AM FOR 4-7 DAYS THEN 1 TABLET BY MOUTH EVERY AM Oral prn Active IMMUNIZATIONS Vaccine Route Administration Date Status Comme nts Influenza Unknown 01/09/2023 Refused SOCIAL HISTORY Tobacco Use: Social History Observation Description Date Details (start date - stop date) Current Smoker NA - NA Sex Assigned At : Social History Observation Description Sex Assigned At Unknown Tobacco Use/Smoking Question Answer Notes Patient is a current smoker How often do you smoke cigarettes? every day How many cigarettes a day do you smoke? 5 or les s How soon after you wake up do you smoke your fir st cigarette? within 5 minutes Are you interested in quitting? Not ready to [place] t PROBLEMS Problem Type ICD Code Onset Dates Problem Status W/U Status Risk SNOMED Code Notes Problem Encounter for screening for malignant neoplasm of colon (Z12.11) Active confirmed 203497527 Problem History of adenomatous polyp of colon (Z86.010) Active confirmed 044744618 Problem Preprocedural examination (Z01.818) Active confirmed 174925019 Problem Family history of colon cancer (Z80.0) Active confirmed [id number] Encounters Encounter Location Date Provider Diagnosis [facility] [address] [phone] 04/10/2023 Alli Schaefer [facility] [address], [place] [phone] 07/01/2023 Alli Schaefer [facility] [address] [place] [phone] 01/09/2023 Alli Schaefer Preprocedural examination Z01.818 ; History of adenomatous polyp of colon Z86.010 ; Encounter for screening for malignant neoplasm of colon Z12.11 and Family history of colon cancer Z80.0 [facility] [address] [place] [phone] 04/09/2023 Alli Schaefer [facility] [address] [place] [phone] 06/29/2023 Alli Schaefer [facility] [address] [place] [phone] 06/29/2023 Alli Schaefer ASSESSMENTS Encounter Date Diagnosis Assessment Notes Treatment Notes Treatment Clinical Notes 01/09/2023 History of adenomatous polyp of colon (ICD-10 - Z86.010) 01/09/2023 Preprocedural examination (ICD-10 - Z01.818) 01/09/2023 Encounter for screening for malignant neoplasm of colon (ICD-10 - Z12.11) 01/09/2023 Family history of colon cancer (ICD-10 - Z80.0) PLAN OF TREATMENT Pending Test Test Name Order Date Pathology 07/01/2023 Future Test Test Name Order Date COLONOSCOPY 11/28/2011 COLONOSCOPY 07/17/2017 COLONOSCOPY 01/09/2023 Insurance Providers Payer Name Payer Address Payer Phone Subscriber Number Group Number Insured Name Patient Relationship to Insured Coverage Start Date Coverage End Date [employer]ICA[employer] OF [employer] [address] [place] [phone] [id number] KIKE VANN Self - patient is the insured MEDICAL (GENERAL) HISTORY Medical History History ICD Code Large, approx 1.5 cm tubular adenoma wit h dysplasia removed in 1996 Colonoscopy 1998, 06-12-2006, and 2011 n egative for any adenomas Denies OR,DM,CVA,Lung disease,renal dise ase Anxiety/Depression Colonoscopy 09/2017 with a small tubular adenoma removed Surgical History Surgery Date(Month/Year)
[2023-07-12 20:45] LABS: Influenza A PCR NEGATIVE (Negative); Influenza B PCR NEGATIVE (Negative); Resp Syncy Virus RNA Qual PCR NEGATIVE (Negative); SARS COV2 PCR INHOUSE NEGATIVE (Negative)
== END 2023-07-12 21:30 | disposition home or self-care (01) ==
PROVIDERS: Registered Nurse Emergency; Emergency Provider Student in an Organized Health Care Education/Training Program; PCP Internal Medicine
DX: T14.8XXA Other injury of unspecified body region, initial encounter (principal); V43.52XA Car driver injured in collision with other type car in traffic accident, initial encounter; Y93.9 Activity, unspecified; Y92.410 Unspecified street and highway as the place of occurrence of the external cause; Y99.9 Unspecified external cause status; M54.2 Cervicalgia; M54.89 Other dorsalgia
CPT/HCPCS: 0241U; 71111; 72100; 99283

== ENCOUNTER 2024-01-15 11:48 | Outpatient (REF) | payer MEDICAID, SELFPAY ==
[2024-01-15 14:11] LABS: MANUAL DIFF FLAG NO
[2024-01-15 14:18] LABS: Basophils Absolute Auto 0.1 X10*3/uL (0.0-0.2); Basophils Percent Auto 1.4 % (0-2); Eosinophils Absolute Auto 0.5 X10*3/uL (0.0-0.4); Eosinophils Percent Auto 5.6 % (0-4); Hematocrit 37.1 % (37.0-47.0); Hemoglobin 12.5 g/dl (12.0-16.0); Imm Gran Abs Auto 0.02 X10*3/uL (0.00-0.03); Imm Gran Pct Auto 0.2 % (0.0-0.4); Lymphocytes Percent Auto 37.3 % (20-40); Mean Corpuscular HGB Conc 33.7 g/dl (31.0-35.0); Monocytes Absolute Auto 0.4 X10*3/uL (0.1-1.2); Monocytes Percent Auto 5.2 % (2-11); Neutrophils Percent Auto 50.3 % (45-73); Platelet Count 313 X10*3/uL (160-400); Red Blood Count 4.17 X10*6/uL (4.20-5.50); Red Cell Distribution Width 13.8 % (11.0-16.0)
[2024-01-15 14:26] LABS: Estimated Average Glucose 120 mg/dL; Hemoglobin A1c % 5.8 % (<6.0)
[2024-01-15 14:27] LABS: Appearance Urine Clear; Color Urine Yellow; Glucose Urine UA Negative (Negative); Leukocyte Esterase Urine Negative (Negative); Nitrite Urine Negative (Negative); PH 5.5 (5.0-9.0); UMIC TRIGGER UA YES; Urine Blood Negative (Negative); Urine Ketones Negative (Negative); Urine Protein 100 (2+) mg/dL (Neg-Trace)
[2024-01-15 14:35] LABS: Bacteria Urine None Seen (None Seen); RBC Urine 0-2 /HPF (0-2); Squamous Epithelial Cell Urine 0-2 /HPF (0-2); WBC Urine 0-5 /HPF (0-5)
[2024-01-15 14:36] LABS: Alanine Aminotransferase 12 U/L (0-31); Albumin Level 4.2 g/dL (3.5-5.0); Alkaline Phosphatase 104 U/L (39-117); Anion Gap 11 (12-20); Aspartate Amino Transferase 16 U/L (5-31); Bilirubin Total 0.3 mg/dL (0.0-1.0); Blood Urea Nitrogen 15 mg/dL (9-16); Calcium 9.9 mg/dL (8.4-10.2); Carbon Dioxide 26 mmol/L (22-29); Chloride 106 mmol/L (96-108); Estimated Glomerular Filt Rate > 60; Glucose Random 105 mg/dL (60-115); Sodium 139 mmol/L (135-145); Total Protein 7.6 g/dL (6.5-8.0)
[2024-01-15 14:51] LABS: HBc Num1 0.09 S/CO (0.00-0.79); HBsAGNum1 0.29 S/CO (0.00-0.99); Hepatitis A Antibody IgM 0.16 Index (0-0.79); Hepatitis B Core Antibody Nonreactive (Nonreactive); Hepatitis B Surface Antigen Negative (Negative); ~Hepatitis A Antibody IgM Nonreactive (Nonreactive); ~Hepatitis B Surface Antibody REACTIVE (Nonreactive); ~Hepatitis C Antibody Nonreactive (Nonreactive)
[2024-01-15 14:55] LABS: HCG Quantitative 4 mIU/mL; Vitamin D 25-OH Total 29.7 ng/mL (>30)
[2024-01-15 15:03] LABS: Folate 11.8 ng/mL (> or = 4.0); Vitamin B12 406 pg/mL (200-900)
== END 2024-01-15 11:49 | disposition home or self-care (01) ==
LOC: HO.CHCLDS 11:48
PROVIDERS: Visit Provider Internal Medicine
DX: Z00.00 Encounter for general adult medical examination without abnormal findings (principal); E78.2 Mixed hyperlipidemia; R35.0 Frequency of micturition; R63.4 Abnormal weight loss; N91.2 Amenorrhea, unspecified
CPT/HCPCS: 36415; 80053; 81001; 82306; 82607; 82746; 83036; 84702; 85025; 86704; 86706; 86709; 86803; 87340

== ENCOUNTER 2024-01-29 11:00 | Outpatient (REF) | payer MEDICAID, SELFPAY ==
[2024-01-29 14:59] LABS: HCG Quantitative 4 mIU/mL; TSH reflex Free T4 0.87 uIU/mL (0.32-4.0)
[2024-01-30 14:12] LABS: Follicle Stimulating Hormone 148.2 mIU/mL; Lutenizing Hormone 58.8 mIU/mL
== END 2024-01-29 11:01 | disposition home or self-care (01) ==
LOC: HO.LAB 11:00
PROVIDERS: PCP Internal Medicine; Visit Provider Obstetrics & Gynecology
DX: N91.2 Amenorrhea, unspecified (principal); N92.1 Excessive and frequent menstruation with irregular cycle; D25.9 Leiomyoma of uterus, unspecified
CPT/HCPCS: 36415; 83001; 83002; 84146; 84443; 84702; 99396

== ENCOUNTER 2024-01-29 11:00 | Outpatient (AMB) | payer MEDICAID, SELFPAY ==
[2024-01-29 11:29] VITALS: BP 102/60; BMI 23.8
--- NOTE | 2024-01-29 11:29 | A.OFFVIS_ITS ---
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 Complaining of amenorrhea for the last 2 years associated with hot flashes and night sweats Last Pap/HPV was negative in 11/04 Last Mammogram was BI-RADS 1 in 06/06 Last colonoscopy was done in 07/06 and the recommendation was to repeat in 5 years [facility] Medical History Abnormal colonoscopy Depression Anxiety Migraines Surgical History Hx of colonoscopy Family History Paternal Aunt Breast CA Mother Colon cancer Father Prostate cancer Social History Alcohol intake: current Alcohol intake frequency: a few times a month Patient Tobacco Use Status: Current everyday Tobacco user Tobacco use type: Cigarette Cigarettes Per Day: 5 Substance Use Type: Marijuana Female Reproductive History Menstrual Age of Menarche: 16 Menopause type: natural Total pregnancies: 3 Full term: 2 Number of Living Children: 2 Ab induced: 1 Date of last pap smear: 11/06/22 Date of Mammogram: 05/23/23 Review of Systems Const All systems reviewed & are unremarkable except as noted in HPI and below Card Reports as per HPI Resp Reports as per HPI GI Reports as per HPI and Reports no additional complaints Reports as per HPI Physical Exam Vital Signs: Last Vital Signs BP 102/60 01/29/24 11:29 BMI result Body Mass Index 23.8 Const General: cooperative, healthy appearing and comfortable Chest Chest palpation & inspection: normal inspection of the chest and normal palpation of entire chest wall Breast/axilla inspection: normal inspection of the breasts and normal inspection of the axillae Breast/axilla palpation: normal palpation of the breasts, normal palpation of the axillae and no axillary lymphadenopathy Resp Effort & Inspection: normal respiratory effort Auscultation: clear to auscultation bilaterally Percussion: percussion normal Cardio Palpation: normal PMI Rate: regular rate Rhythm: regular rhythm Heart sounds: no murmurs and no rubs Peripheral pulses: Peripheral pulses 2+ throughout GI Inspection: Yes normal to inspection Palpation (GI): Soft to palpation, nontender, no guarding, not rigid and No hepatosplenomegaly present Percussion: Yes normal to percussion Auscultation: normal bowel sounds Rectal Exam - Female: deferred General: Yes bladder normal to palpation External Female Exam: No lesion Speculum Exam - Vagina: normal appearance of the vagina, normal palpation, normal vaginal discharge and not erythematous Speculum Exam - Cervix: normal appearance of the cervix and normal palpation Bimanual exam- vagina & uterus: normal bimanual exam, normal palpation, uterine size normal, bladder normal to palpation, consistency normal and normal palpation Bimanual Exam- Adnexa, other: normal adnexae, no masses and no tenderness Assessment & Plan Assessment & Plan (1) Well woman exam: Code(s): Z01.419 - Encounter for gynecological examination (general) (routine) without abnormal findings Category: Medical Plan: Cotesting not indicated this year. Instructions given the patient to schedule next screening Mammogram in 06/07. Counseled the patient about the recommended dietary allowance of 1000 mg of Calcium & 600 IU of vitamin D. The patient was instructed to perform monthly self-breast exams and to schedule an annual exam in a year; All questions answered and the patient verbalized understanding. Instructed the patient to schedule annual exam in a year (2) Uterine myoma: Code(s): D25.9 - Leiomyoma of uterus, unspecified Category: Medical Plan: Pelvic ultrasound ordered. Instructions given the patient to schedule the ultrasound and a follow-up appointment. All questions answered, the patient verbalized understanding. (3) Amenorrhea: Code(s): N91.2 - Amenorrhea, unspecified Category: Medical Plan: UPT done in the office was negative. Discussed with the patient the possible causes of amenorrhea including but not limited to anovulation, thyroid and prola ctin disorders, , end organ problems (uterine synechiae), medication side effects and others. The workup includes to start with UPT , was done in the office and was negative, will order TSH, PRL, FSH/LH. Instructions given the patient to schedule a 2 week follow-up appointment. All questions answered, the patient verbalized understanding Orders: Orders US pelvic and transvaginal Today D25.9 - Leiomyoma of uterus, unspecified Prolactin Today N91.2 - Amenorrhea, unspecified HCG Quantitative Today N91.2 - Amenorrhea, unspecified Follicle Stimulating Hormone Today N91.2 - Amenorrhea, unspecified TSH reflex Free T4 Today N91.2 - Amenorrhea, unspecified Lutenizing Hormone Today N91.2 - Amenorrhea, unspecified Coding Level of Care Code Est Pt Prev Care 40-64y(62329) Diagnoses Well woman exam Z01.419 Uterine myoma D25.9 Amenorrhea N91.2
== END 2024-01-29 11:53 | disposition home or self-care (01) ==
PROVIDERS: Visit Provider Obstetrics & Gynecology
DX: Z01.419 Encounter for gynecological examination (general) (routine) without abnormal findings (principal); D25.9 Leiomyoma of uterus, unspecified; N91.2 Amenorrhea, unspecified
CPT/HCPCS: 99396

== ENCOUNTER 2024-01-31 12:48 | Outpatient (REF) | payer MEDICAID, SELFPAY ==
--- NOTE | ~2024-01-31 | US_ITS ---
EXAMINATION: US PELVIS COMPLETE CLINICAL INFORMATION: Leiomyomata; the last menstrual period was 2 years prior. COMPARISON: Pelvic ultrasound dated 11/16/2022. TECHNIQUE: Transabdominal imaging was performed. FINDINGS: The uterus is of normal size and echogenicity, measuring cm. The uterus is [anteverted/retroverted]. A regular homogeneous endometrium is identified measuring cm. The cervical length is cm. FIBROIDS: There are 3 fibroids seen. 1. Location: Posterior body, myometrial. Size: 0.8 x 0.5 x 0.5 cm. Fibroid characteristics: Heterogeneously hypoechoic. 2. Location: Rightward isthmus. Size: 1.1 x 0.7 x 1.1 cm. Fibroid characteristics: Heterogeneous echotexture. 3. Location: Upper rightward body, myometrial. Size: 1.0 x 0.8 x 0.9 cm. Fibroid characteristics: Heterogeneously hypoechoic. Both ovaries are of normal size and echogenicity. [The ovaries show normal doppler flow.] The right ovary measures 2.3 x 1.0 x 1.2 cm for a volume of 1.2 mL. There are tiny calcifications which are likely a sequela of old hemorrhage or infection. The left ovary measures 2.1 x 1.0 x 1.0 cm for a volume of 1.1 mL. There is no pelvic free fluid. No adnexal mass is seen. US/US pelvic and transvaginal IMPRESSION: Uterine fibroids are seen, as detailed. The examination is otherwise unremarkable.
== END 2024-01-31 12:49 | disposition home or self-care (01) ==
LOC: HO.US 12:48
PROVIDERS: PCP Internal Medicine; Visit Provider Obstetrics & Gynecology
DX: D25.9 Leiomyoma of uterus, unspecified (principal)
CPT/HCPCS: 76830; 76856

== ENCOUNTER 2024-02-05 10:30 | Outpatient (REF) | payer MEDICAID, SELFPAY ==
[2024-02-05 11:12] LABS: HCG Quantitative 4 mIU/mL
== END 2024-02-05 10:31 | disposition home or self-care (01) ==
LOC: HO.LAB 10:30
PROVIDERS: PCP Internal Medicine; Visit Provider Obstetrics & Gynecology
DX: N93.9 Abnormal uterine and vaginal bleeding, unspecified (principal)
CPT/HCPCS: 36415; 84702

== ENCOUNTER 2024-04-13 11:48 | Outpatient (AMB) | payer MEDICAID, SELFPAY ==
[2024-04-13 11:56] VITALS: BMI 23.4
--- NOTE | 2024-04-13 11:56 | MHC.OFFVIS ---
Vital Signs 04/13/24 11:56 Height 5 ft 2 in Weight 127 lb 13.89 oz BMI 23.4 Intake Visit Reasons: Ultrasound follow up/DO NOT RS Triage Register Nurse Required: No Information Interpreted: non-clinical & clinical Accompanied by: Self / Same As Patient Allergies No Known Allergies [No Known Allergies*] Allergy (Verified 04/13/24 12:06) HPI Comments Details: Presenting for follow-up regarding uterine myoma seen on previous ultrasound in 12/05 which showed 2 myomas 1 fundal measuring 1.2 cm and 1 posterior myoma measuring 2.4 cm. Ultrasound done recently on 02/04 showed the following: The uterus is of normal size and echogenicity, measuring cm. The uterus is [anteverted/retroverted]. A regular homogeneous endometrium is identified measuring cm. The cervical length is cm. FIBROIDS: There are 3 fibroids seen. 1. Location: Posterior body, myometrial. Size: 0.8 x 0.5 x 0.5 cm. Fibroid characteristics: Heterogeneously hypoechoic. 2. Location: Rightward isthmus. Size: 1.1 x 0.7 x 1.1 cm. Fibroid characteristics: Heterogeneous echotexture. 3. Location: Upper rightward body, myometrial. Size: 1.0 x 0.8 x 0.9 cm. Fibroid characteristics: Heterogeneously hypoechoic. Both ovaries are of normal size and echogenicity. [The ovaries show normal doppler flow.] The right ovary measures 2.3 x 1.0 x 1.2 cm for a volume of 1.2 mL. There are tiny calcifications which are likely a sequela of old hemorrhage or infection. The left ovary measures 2.1 x 1.0 x 1.0 cm for a volume of 1.1 mL. There is no pelvic free fluid. No adnexal mass is seen. FSH was 148.2/LH 58.8, TSH, prolactin within normal HCG was 4 on 01/28 repeated on 02/04 was 4 The patient is doing well no pelvic pressure or pain or vaginal bleeding. Complaining of hot flashes with night sweats. PFSH Medical History Abnormal colonoscopy Depression Anxiety Migraines Surgical History Hx of colonoscopy Family History Paternal Aunt Breast CA Mother Colon cancer Father Prostate cancer Social History Alcohol intake: current Alcohol intake frequency: a few times a month Patient Tobacco Use Status: Current everyday Tobacco user Tobacco use type: Cigarette Cigarettes Per Day: 5 Substance Use Type: Marijuana Female Reproductive History Menstrual Age of Menarche: 16 Review of Systems Const All systems reviewed & are unremarkable except as noted in HPI and below Reports as per HPI and Reports no additional complaints GI Reports no additional complaints Reports no additional complaints Physical Exam Vital Signs: BMI result Body Mass Index 23.4 Assessment & Plan Assessment & Plan (1) Amenorrhea: Comment: Menopause with hot flashes Code(s): N91.2 - Amenorrhea, unspecified Category: Medical Plan: Discussed with the patient the results of her elevated FSH/LH, pointing towards the diagnosis of amenorrhea secondary to menopause Discussed with the patient the options of treatment of hot flashes including hormonal replacement therapy, all the pros, cons, risks and benefits (benefits= prevention of hot flashes, atrophic vaginitis, osteoporosis, decrease colon ca risk; also discussed with the patient the risks of [place], Breast ca, DVT, PE, Strokes). In addition, discussed with the patient non hormonal treatment options for hot flashes treatment in surgical menopausal patient. Options discussed with the patient include the following: SSRI/SNRIs , difficulty has been demonstrated in multiple trials clinical response is more rapid (days) than typical response to SSRI for depression (weeks), they are equally effective in natural versus surgical menopause, they have similar modest benefit for hot flashes; Paroxetine 7.5 mg per day is suggested to be as a 1st choice the SSRI/SNRI such, FDA approved for treatment of hot flashes. Citalopram 20 mg per day is another 1st choice option. Sertraline and fluoxetine are not effective options. Effexor at 37.5 mg per day up to 75 mg per day after the 1st week has similar efficacy for hot flashes relief as low-dose estradiol at 0.5 mg per day, 47% efficacy reduction hot flashes Gabapentin it 300 mg p.o. t.i.d. especially for patient was hot flashes are at night has been shown to reduce hot flashes, 41% efficacy reduction hot flashes, if 1 of the SSRI/SNRI class of drugs is ineffective or not tolerated trial of gabapentin would be reasonable Other options include the following: Clonidine patch 0.1 mg per day up to 0.3 mg per day is another acceptable less effective options with high side effect profile Oxybutynin 5-10 mg p.o. q.d. has been shown to relieve hot flashes, the most common side effects will be dry mouth in 20-30% of patients Depo-Provera has been shown to reduce hot flashes Norethindrone acetate at 10 mg p.o. q.d. The patient would like to hold off any treatment and will call back in case symptoms get worse (2) Uterine myoma: Code(s): D25.9 - Leiomyoma of uterus, unspecified Category: Medical Plan: Discussed with the patient the findings on pelvic ultrasound & the risk of myosarcoma; discussed with the patient the options of treatment including expectant management versus hysterectomy; the pros and cons, risks benefits of each approach were discussed with the patient including the fact that in cases of myosarcoma, surgical treatment can lead to early diagnosis and positively affects the prognosis; after further discussion, the patient decided to proceed with expectant management. Will repeat pelvic ultrasound periodically. Instructions given to patient to call in case any of the following occurs: pressure symptoms, abnormal uterine bleeding, pelvic pain; and to schedule a 12 months pelvic ultrasound and a follow-up appointment . All questions answered, the patient verbalized understanding and agreed with the plan . Orders: Orders US pelvic and transvaginal Today D25.9 - Leiomyoma of uterus, unspecified Coding Level of Care Code Est Pt Level 3 (49775) Diagnoses Amenorrhea N91.2 Uterine myoma D25.9
== END 2024-04-13 12:40 | disposition home or self-care (01) ==
PROVIDERS: PCP Internal Medicine; Referring Provider Internal Medicine; Visit Provider Obstetrics & Gynecology
DX: N91.2 Amenorrhea, unspecified (principal); D25.9 Leiomyoma of uterus, unspecified
CPT/HCPCS: 99213

== ENCOUNTER → 2024-04-13 11:48 | Outpatient (BNVA) | payer MEDICAID, SELFPAY | PROVIDERS: PCP Internal Medicine; Visit Provider Obstetrics & Gynecology | DX: N91.2 Amenorrhea, unspecified (principal); D25.9 Leiomyoma of uterus, unspecified | CPT/HCPCS: 99212 ==

== ENCOUNTER 2024-04-23 15:54 | Outpatient (REF) | payer MEDICAID, SELFPAY ==
--- NOTE | ~2024-04-23 | US_ITS ---
EXAMINATION: US PELVIS CLINICAL INFORMATION: Leiomyoma of the uterus COMPARISON: Ultrasound pelvis 01/31/2024 TECHNIQUE: Ultrasound of the pelvis is performed using both transabdominal and transvaginal transducers along with Doppler. Transvaginal imaging is performed due to inadequate visualization transabdominally. FINDINGS: Uterus: The uterus is anteverted and measures 6.8 x 3.2 x 3.9 cm for a volume of 44.4 cc The double wall endometrial thickness is 4 mm. The uterus is smooth in contour and has normal myometrial echogenicity. 2 small fibroids are present measuring 4 and 6 mm in size. Previously 3 fibroids were noted ranging in size from 8 mm to 11 mm. Adnexa: The right ovary was not seen. The left ovary appeared normal measuring 1.4 x 0.8 x 0.9 cm for a volume of 0.5 cc. No free fluid present in the cul-de-sac US/US pelvic and transvaginal IMPRESSION: 2 small uterine fibroids are present. Electronically signed by: Paul Mccormick MD 06/25/2024 11:29 AM [facility]
== END 2024-04-23 15:55 | disposition home or self-care (01) ==
LOC: HO.US 15:54
PROVIDERS: PCP Internal Medicine; Visit Provider Obstetrics & Gynecology
DX: D25.9 Leiomyoma of uterus, unspecified (principal)
CPT/HCPCS: 76830; 76856

== ENCOUNTER 2024-06-04 15:46 | Outpatient (REF) | payer MEDICAID, SELFPAY ==
--- NOTE | ~2024-06-04 | MM_ITS ---
EXAMINATION: MM SCREENING DIGITAL BREAST TOMOSYNTHESIS, BILATERAL CLINICAL INFORMATION: Screening. Asymptomatic. COMPARISON: Mammography: Comparison is made with available priors TECHNIQUE: Digital breast mammography with tomosynthesis is performed in both the craniocaudal and mediolateral oblique views along with computer-aided detection (CAD). FINDINGS: There are scattered areas of fibroglandular density (ACR BI-RADS breast composition Category b). There are no significant masses, abnormal calcifications, or other abnormalities. MM/MM tomosynthesis screening BI IMPRESSION: No mammographic evidence of malignancy. ASSESSMENT: BI-RADS BI-RADS 1 - Negative RECOMMENDATION: Routine annual mammography screening. 1 year F/U This examination should not preclude the clinical evaluation of a suspicious palpable abnormality. This patient's information was entered into a reminder system with a target due date for their next mammogram. Electronically signed by: Libertad Healy DO 06/15/2024 09:41 AM [facility]
== END 2024-06-04 15:47 | disposition home or self-care (01) ==
LOC: HO.MAMMO 15:46
PROVIDERS: PCP Internal Medicine; Visit Provider Internal Medicine
DX: Z12.31 Encounter for screening mammogram for malignant neoplasm of breast (principal)
CPT/HCPCS: 77063; 77067

== ENCOUNTER → 2024-06-04 16:00 | Outpatient (BNV) | payer MEDICAID, SELFPAY | PROVIDERS: PCP Internal Medicine; Visit Provider Internal Medicine | DX: Z12.31 Encounter for screening mammogram for malignant neoplasm of breast (principal) | CPT/HCPCS: 77063; 77067 ==

== ENCOUNTER 2024-07-16 14:39 | Outpatient (AMB) | payer MEDICAID, SELFPAY ==
--- NOTE | 2024-07-16 14:39 | MHC.OFFVIS ---
Intake Visit Reasons: Ultrasound follow up Allergies No Known Allergies [No Known Allergies*] Allergy (Verified 04/13/24 12:06) HPI Comments Details: The patient scheduled tele health visit for ultrasound follow-up which showed the following: Uterus: The uterus is anteverted and measures 6.8 x 3.2 x 3.9 cm for a volume of 44.4 cc The double wall endometrial thickness is 4 mm. The uterus is smooth in contour and has normal myometrial echogenicity. 2 small fibroids are present measuring 4 and 6 mm in size. Previously 3 fibroids were noted ranging in size from 8 mm to 11 mm. Adnexa: The right ovary was not seen. The left ovary appeared normal measuring 1.4 x 0.8 x 0.9 cm for a volume of 0.5 cc. No free fluid present in the cul-de-sac PFSH Medical History Abnormal colonoscopy Depression Anxiety Migraines Surgical History Hx of colonoscopy Family History Paternal Aunt Breast CA Mother Colon cancer Father Prostate cancer Social History Alcohol intake: current Alcohol intake frequency: a few times a month Patient Tobacco Use Status: Current everyday Tobacco user Tobacco use type: Cigarette Cigarettes Per Day: 5 Substance Use Type: Marijuana Female Reproductive History Menstrual Age of Menarche: 16 Review of Systems Const All systems reviewed & are unremarkable except as noted in HPI and below Reports as per HPI and Reports no additional complaints GI Reports no additional complaints Reports no additional complaints Telehealth Telehealth Telehealth Platform: Telephone Location of provider rendering services: practice address Location of patient: address on file Patient Identification confirmed using: Name, : Yes Telehealth method: video Patient verbally consented to treatment: Yes Patient verbally consented to billing insurance company: Yes Patient informed of any privacy concerns related to visit: Yes Assessment & Plan Assessment & Plan (1) Uterine myoma: Code(s): D25.9 - Leiomyoma of uterus, unspecified Category: Medical Plan: Discussed with the patient the findings on pelvic ultrasound & the risk of myosarcoma; discussed with the patient the options of treatment including expectant management versus hysterectomy; the pros and cons, risks benefits of each approach were discussed with the patient including the fact that in cases of myosarcoma, surgical treatment can lead to early diagnosis and positively affects the prognosis; after further discussion, the patient decided to proceed with expectant management. Will repeat pelvic ultrasound periodically. Instructions given to patient to call in case any of the following occurs: pressure symptoms, abnormal uterine bleeding, pelvic pain; and to schedule a 12 months pelvic ultrasound (order placed) and a follow-up appointment . All questions answered, the patient verbalized understanding and agreed with the plan . I spent a total of 20 minutes reviewing the chart, talking to the patient via video and documenting in the medical record. Orders: Orders US pelvic and transvaginal 12 Months D25.9 - Leiomyoma of uterus, unspecified Coding Level of Care Code Tele Est Pt Level 3 (30642) Diagnoses Uterine myoma D25.9
--- OUTSIDE RECORDS SUMMARY | 2024-07-16 16:13 | XMS_ITS ---
Author Organization [facility] Address [address] [place] [address] Care Team Providers Care Mac Artist Name Role Phone Vinayak Kaur M.D. Primary Care Provider Un available Alli Schaefer Unavailable [phone] REASON FOR VISIT colon screening PROBLEMS Problem Type ICD Code Onset Dates Problem Status W/U Status Risk SNOMED Code Notes Problem Personal history of colonic polyps (Z86.010) Active confirmed History of polyp of colon (situation) (364405471) Encounters Encounter Location Date Provider Diagnosis [facility] [address] [place], [place] [id number] 07/01/2023 Alli Schaefer Encounter for scre ening colonoscopy Z12.11 ; Personal history of colonic polyps Z86.010 ; Family history of colon cancer Z80.0 ; Other specified diseases of intestine K63.89 and Internal hemorrhoids K64.8 ASSESSMENTS Encounter Date Diagnosis Assessment Notes Treatment Notes Treatment Clinical Notes 07/01/2023 Encounter for screening colonoscopy (ICD-10 - Z12.11) 07/01/2023 Personal history of colonic polyps (ICD-10 - Z86.010) 07/01/2023 Family history of colon cancer (ICD-10 - Z80.0) 07/01/2023 Other specified diseases of intestine (ICD-10 - K63.89) 07/01/2023 Internal hemorrhoids (ICD-10 - K64.8) PLAN OF TREATMENT No Information
--- OUTSIDE RECORDS SUMMARY | 2024-07-16 16:13 | XMS_ITS ---
Author Organization [facility] Address [address] [place] [id number] Care Team Providers Care Landing Signal Officer Name Role Phone Vinayak Kaur M.D. Primary Care Provider Un available Alli Schaefer Unavailable [phone] MEDICATIONS Medication SIG (Take, Route, Frequency, Duration) [...] the day before the procedure for 1 day 06/29/2023 Active Encounters Encounter Location Date Provider Diagnosis [facility] [address] [address] 06/29/2023 Alli Schaefer PLAN OF TREATMENT Medication Medication Name Sig Start Date Stop Date Notes Dulcolax (colon prep) 5 MG take at 3:00 p.m and 7:00p.m. Orally two tablets twice a day for one day for 1 day 06/29/2023 MiraLax (colon prep) 17 GM/SCOOP 1 238Gm bottle mixed with Gatorade or Crystal Light Orally begin at 5:00 p.m. the day before the procedure for 1 day 06/29/2023
--- OUTSIDE RECORDS SUMMARY | 2024-07-16 16:13 | XMS_ITS ---
Author Organization [facility] Address [address] [place] [phone] Care Team Providers Care Instructor Business Education Name Role Phone Vinayak Kaur M.D. Primary Care Provider Un available Alli Schaefer Unavailable [phone] MEDICATIONS Medication SIG (Take, Route, Frequency, Duration) [...] the procedure for 1 days 06/29/2023 Active Encounters Encounter Location Date Provider Diagnosis [facility] [address] [address] 06/29/2023 Alli Schaefer PLAN OF TREATMENT Medication [...]
--- OUTSIDE RECORDS SUMMARY | 2024-07-16 16:13 | XMS_ITS | Patient Health Record ---
Author Organization [facility] Address [address] [place] [phone] Care Team Providers Care Percussion Tuner Name Role Phone Vinayak Kuar M.D. Primary Care Provider Un available Alli Schaefer Unavailable [phone] ALLERGIES No Known Allergies REASON FOR REFERRAL No Information MEDICATIONS Medication SIG (Take, Route, Frequency, Duration) [...] malignant neoplasm of colon (Z12.11) Active confirmed [id number] Problem History of adenomatous polyp of colon (Z86.010) Active confirmed [id number] Problem Personal history of colonic polyps (Z86.010) Active confirmed History of polyp of colon (situation) (699655724) Problem Preprocedural examination (Z01.818) Active confirmed [id number] Problem Family history of colon cancer (Z80.0) Active confirmed [id number] PLAN OF TREATMENT Future Test Test Name Order Date COLONOSCOPY 11/28/2011 COLONOSCOPY 07/17/2017 COLONOSCOPY 01/09/2023 Insurance Providers Payer Name Payer Address Payer Phone Subscriber Number Group Number Insured Name Patient Relationship to Insured Coverage Start Date Coverage End Date MEDICA[employer] OF [employer] [address] [place] [id number] KIKE VANN Self - patient is the insured MEDICAL (GENERAL) HISTORY Medical History History ICD Code Large, approx 1.5 cm tubular adenoma wit h dysplasia removed in 1996 Colonoscopy 1998, 06-12-2006, and 2011 n egative for any adenomas Denies CA,DM,CVA,Lung disease,renal dise ase Anxiety/Depression Colonoscopy 09/2017 with a small tubular adenoma removed Surgical History Surgery Date(Month/Year)
== END 2024-07-16 15:13 | disposition home or self-care (01) ==
LOC: HO.HWS 14:39
PROVIDERS: PCP Internal Medicine; Visit Provider Obstetrics & Gynecology
DX: D25.9 Leiomyoma of uterus, unspecified (principal)
CPT/HCPCS: 99213

== ENCOUNTER 2025-02-18 14:38 | Outpatient (REF) | payer MEDICAID, SELFPAY ==
--- OUTSIDE RECORDS SUMMARY | 2025-02-18 14:41 | XMS_ITS | Clinical Summary ---
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20 cancerous tumor removed FU Q 5 years Medical History Medical History Date Comments Depressive disorder, not els ewhere classified DX:Depressive disorder, not elsewhere classified Family History Medical History Relation Name Comments Breast cancer Aunt maternal and p aternal side age 50's Diabetes Father Diabetes Maternal Grandmother Hypertension Maternal Grandmother Colon cancer Mother Diabetes Paternal Grandfather Diabetes Paternal Grandmother Ovarian cancer Neg Hx Relation Name Status Comments Aunt Brother Alive no medical prob lems Father Alive DM Maternal Grandmother Mother Alive no medical prob lems Paternal Grandfather Paternal Grandmother Sister Alive no medical prob lems Social History Tobacco Use Types Packs/Day Years Used Date Smoking Tobacco: Every Day Cigarettes Smokeless Tobacco: Never Alcohol Use Standard Drinks/Week Comments Yes 0 (1 standard drink = 0.6 oz pur e alcohol) Comments Unknown Sex and Gender Information Value Date Recorded Sex Assigned at Not on file Legal Sex Female 12:50 AM EST Gender Identity Not on file Sexual Orientation Not on file Obstetrics History Plan of Treatment Health Maintenance Due Date Last Done Comments Breast Cancer Screening 1975 Hepatitis B Vaccines (1 of 3 - 19+ 3-dose series) 1995 Cervical Cancer Screening: P ap Smear 1997 DTaP,Tdap,and Td Vaccines (2 - Td or Tdap) 11/18/2023 11/17/2013 COVID-19 Vaccine ( - 2023-2 5 season) 2024 Depression Screening 07/15/2024 Influenza Vaccine (#1) 2025 03/31/2010 HIB Vaccines Aged Out No longer eligi ble based on patient's age to complete this topic HPV Vaccines Aged Out No longer eligi ble based on patient's age to complete this topic Hepatitis A Vaccines Aged Out No long er eligible based on patient's age to complete this topic IPV Vaccines Aged Out No longer eligi ble based on patient's age to complete this topic MMR Vaccines Aged Out No longer eligi ble based on patient's age to complete this topic Meningococcal ACWY Vaccine Aged Out N o longer eligible based on patient's age to complete this topic Meningococcal B Vaccine Aged Out No l onger eligible based on patient's age to complete this topic Pneumococcal Vaccine: Pediat rics (0 to 5 Years) and At-Risk Patients (6 to 49 Years) Aged Out No longer eligi ble based on patient's age to complete this topic RSV Immunization Patients Un hilda 20 months Aged Out No longer eligible b ased on patient's age to complete this topic Varicella Vaccines Aged Out No longer eligible based on patient's age to complete this topic Care Teams Visual Arts Teacher Relationship Specialty Start Date End Date Britany Johnson MD PCP - General Internal Medicine 12/27/15
--- OUTSIDE RECORDS SUMMARY | 2025-02-18 14:41 | XMS_ITS | Encounter Summary ---
Author Organization [employer] Address [address] [facility] 7t [place] [address] Care Team Providers Care Marine Machinist Name Role Phone Vinayak Kaur MD Primary Care Provider Encounter Details Date Type Department Care Team ([facility] st Contact Info) Description 03/12/2023 Orders Only [facility] CHC MED & PEDS [address] [place], [place] [phone] Vinayak Kaur MD [address] [place] [address] Chronic low back pain, unspecified back pain laterality, unspecified whether sciatica present (Primary Dx) Social History Tobacco Use Types Packs/Day Years Used Date Smoking Tobacco: Every Day Cigarettes 0.3 18 Smokeless Tobacco: Never Depression Answer Date Recorded Patient Health Questionnaire-9 Score 16 10/22/2022 Depression Answer Date Recorded Patient Health Questionnaire-2 Score 2 10/22/2022 Comments Unknown Sex and Gender Information Value Date Recorded Sex Assigned at Female 05/14/2022 10:14 AM EDT Legal Sex Female 10:14 AM EDT Gender Identity Female 05/14/2022 10:14 AM EDT Sexual Orientation Straight 05/14/2022 10 :14 AM EDT documented as of this encounter Plan of Treatment Not on file documented as of this encounter Visit Diagnoses Diagnosis Chronic low back pain, unspecified back pain laterality, unspecified whether sciatica present- Primary documented in this encounter Additional Health Concerns Assessment Noted Time PHQ-9 Depression Total Score: 16 023 11:01 AM EDT documented as of this encounter Care Teams Marine Machinist Relationship Specialty Start Date End Date Vinayak Kaur MD [address] [place] [phone] PCP - General Internal Medicine 03/17/21 documented as of this encounter
--- OUTSIDE RECORDS SUMMARY | 2025-02-18 14:41 | XMS_ITS | Patient Health Record ---
Author Organization [facility] Address [address] [place] [phone] Care Team Providers Care Office Cashier Name Role Phone Vinayak Kaur M.D. Primary Care Provider Un available Alli Schaefer Unavailable [phone] Allergies No Known Allergies Reason For Referral No Information Medications Medication SIG (Take, Route, Frequency, Duration) Notes [...] BY MOUTH EVERY AM Oral prn Active Immunizations Vaccine Route Administration Date Status Comme nts Influenza Unknown 01/09/2023 Refused Social History Tobacco Use: Social History Observation Description Date Details (start date - stop date) Current Smoker NA - NA Tobacco Use/Smoking Question Answer Notes Patient is a current smoker How often do you smoke cigarettes? every day How many cigarettes a day do you smoke? 5 or les s How soon after you wake up do you smoke your fir st cigarette? within 5 minutes Are you interested in quitting? Not ready to [place] t Section Notes: Smoker; no sig. alcohol Smoker 3-4 cigs QD; no sig. alcohol Smoker 3-4 cigs QD; no sig. alcohol Problems Problem Type SNOMED Code ICD Code Onset Dates Problem Status W/U Status Risk Notes Problem 514686858 Encounter for screening for malignant neoplasm of colon (Z12.11) Active confirmed Problem 125308680 History of adenomatous polyp of colon (Z86.010) Active confirmed Problem History of polyp of colon (situation) (714630356) Personal history of colonic polyps (Z86.010) Active confirmed Problem 055518007 Preprocedural examination (Z01.818) Active confirmed Problem 491125060 Family history o f colon cancer (Z80.0) Active confirmed Plan Of Treatment Future Test Test Name Order Date COLONOSCOPY 11/28/2011 COLONOSCOPY 07/17/2017 COLONOSCOPY 01/09/2023 Insurance Providers Payer Name Payer Address Payer Phone Subscriber Number Group Number Insured Name Patient Relationship to Insured Coverage Start Date Coverage End Date MEDICAID OF [employer] [address] [place] [phone] [id number] KIKE VANN Self - patient is the insured Medical (General) History Medical History History ICD Code Large, approx 1.5 cm tubular adenoma wit h dysplasia removed in 1996 Colonoscopy 1998, 06-12-2006, and 2011 n egative for any adenomas Denies [place],DM,CVA,Lung disease,renal dise ase Anxiety/Depression Colonoscopy 09/2017 with a small tubular adenoma removed Surgical History Surgery Date(Month/Year)
[2025-02-18 17:36] LABS: MANUAL DIFF FLAG NO
[2025-02-18 18:00] LABS: Hematocrit 33.6 % (37.0-47.0); Hemoglobin 11.2 g/dl (12.0-16.0); Imm Gran Abs Auto 0.01 X10*3/uL (0.00-0.03); Imm Gran Pct Auto 0.1 % (0.0-0.4); Lymphocytes Absolute Auto 2.5 X10*3/uL (1.2-4.9); Mean Corpuscular HGB Conc 33.3 g/dl (31.0-35.0); Mean Corpuscular Hemoglobin 30.2 pg (27.0-33.0); Mean Corpuscular Volume 90.6 fL (80.0-98.0); NRBC Abs Auto 0.000 X10*3/uL (0.0-0.012); NRBC Pct Auto 0.0 /100WBC (0.0-0.2); Platelet Count 274 X10*3/uL (160-400); Red Blood Count 3.71 X10*6/uL (4.20-5.50); White Blood Count 7.0 X10*3/uL (4.8-10.8)
[2025-02-18 18:21] LABS: Alanine Aminotransferase 12 U/L (0-31); Albumin Level 4.1 g/dL (3.5-5.0); Alkaline Phosphatase 86 U/L (39-117); Anion Gap 11 (12-20); Aspartate Amino Transferase 23 U/L (5-31); Blood Urea Nitrogen 17 mg/dL (9-16); Calcium 9.0 mg/dL (8.4-10.2); Carbon Dioxide 28 mmol/L (22-29); Chloride 106 mmol/L (96-108); Cholesterol 255 mg/dL (<200); Estimated Glomerular Filt Rate > 60; HDL Cholesterol 84 mg/dL (>40); Potassium 3.9 mmol/L (3.3-5.1); Sodium 141 mmol/L (135-145); Total Protein 6.8 g/dL (6.5-8.0); Triglycerides 58 mg/dL (<150)
[2025-02-18 18:47] LABS: Folate 11.3 ng/mL (> or = 4.0); Vitamin B12 333 pg/mL (200-900)
== END 2025-02-18 14:39 | disposition home or self-care (01) ==
LOC: CF 14:38
PROVIDERS: Visit Provider Internal Medicine
DX: Z00.00 Encounter for general adult medical examination without abnormal findings (principal); F41.9 Anxiety disorder, unspecified
CPT/HCPCS: 36415; 80053; 80061; 82607; 82746; 84443; 85025

== ENCOUNTER 2025-05-11 09:49 | Outpatient (REF) | payer MEDICAID, SELFPAY ==
--- OUTSIDE RECORDS SUMMARY | 2025-05-11 11:32 | XMS_ITS | Encounter Summary ---
Author Organization [employer] Address [address] [facility] 7t [place] [address] Care Team Providers Care Home Health Attendant Name Role Phone Vinayak Kaur MD Primary Care Provider [phone] Encounter Details Date Type Department Care Team ([facility] Contact Info) Description 08/27/2022 Orders Only [facility] MEDICINE [address] [place] [address] Vinayak Kaur MD [address] [place], [place] [phone] Other iron deficiency anemia (Primary Dx) Social History Tobacco Use Types Packs/Day Years Used Date Smoking Tobacco: Never Assessed Comments Unknown Sex and Gender Information Value Date Recorded Sex Assigned at Female 05/14/2022 10:14 AM EDT Legal Sex Female 10:14 AM EDT Gender Identity Female 05/14/2022 10:14 AM EDT Sexual Orientation Straight 05/14/2022 10 :14 AM EDT documented as of this encounter Plan of Treatment Upcoming Encounters Date Type Department Care Team ([facility] Contact Info) Description 06/03/2025 1:45 PM EST Office Visit [facility] CHC MED & PEDS [address] [place] [address] Vinayak Kaur MD [address] [place] [address] Scheduled Orders Name Type Priority Associated Diagnoses Orde r Schedule CBC auto differential Lab Routine Other iron deficiency anemia Expected: 08/31/2022 (Approximate), Expires: 08/31/2023 documented as of this encounter Procedures Procedure Name Priority Date/Time Associated Diagnosis Comments URINALYSIS WITH REFLEX TO MICROSCOPIC Routine 02/07/2023 1:36 PM EDT Other iron deficiency anemia HEMATOXYLIN AND EOSIN STAIN Routine 12/05/2022 3:03 PM EDT Other iron deficiency anemia HPV MRNA E6/E7 REFLEX TO HPV 16, 18/45 Routine 11/05/2022 2:22 PM EDT Other iron deficiency anemia PAP SMEAR Routine 11/05/2022 2:22 PM EDT Other iron deficiency anemia CHLAMYDIA/N. GONORRHOEAE RNA, TMA, UROGENITAL Routine 11/05/2022 1:23 PM EDT Other iron deficiency anemia CBC WITH AUTO DIFFERENTIAL Routine 08/30/2022 9:30 AM EST Other iron deficiency anemia documented in this encounter Results * Urinalysis Reflex (02/07/2023 1:36 PM EDT) Color Urine Yellow [facility] Appearance Urine Cloudy [facility] PH 5.5 5.0 - 9.0 [facility] Glucose Urine UA Negative Negative mg/dL [facility] Urine Blood Negative Negative [facility] Specific [place] - Urine 1.020 1.005 - 1.025 [facility] Urine Protein Negative Neg-Trace mg/dL [facility] Urine Ketones Trace Negative mg/dL [facility] Nitrite Urine Negative Negative [facility] Leukocyte Esterase Urine Negative Negative [facility] 02/07/2023 1:36 PM EDT 02/07/2023 2:23 PM EDT us Vinayak Kaur MD LAB URINE ORDERABLES Final Result [facility] [address] [place] [address] [phone] * Hematoxylin and Eosin Stain (12/05/2022 3:03 PM EDT) 12/05/2022 3:03 PM EDT 12/06/2022 7:16 AM EDT [facility] - 12/11/2022 11:39 AM EDT ----- ------- Name: Brenda Manzo Age/Sex: 47/F : 1975 Unit#: [id number] Attend Dr: Cedrick Durán MD Re12/05/22 Status: [facility] Location: [facility] Disch: ----- ------- SPEC : [id number] RECD: 12/06/22 STATUS: JESSICA VALLADARES NUM: [id number] SABINE: 12/05/22-1503 [facility] DR: Cedrick Durán MD ENTERED: 12/06/22 TYPE: Surgical OTHR DR: Vinayak Kaur MD ORDERED: HE Stain/2, Gross Micro L4 Diagnosis Endometrium, biopsy: -Benign proliferative endometrium with focal ectatic vessels and stromal collapse; no atypia or carcinoma. -Benign squamous and endocervical glandular epithelium. Clinical History AUB Microscopic Description Microscopic sections reviewed. Material Received EMB Gross Description Received in formalin labeled EMB is a 1.8 x 1.5 x 0.45 cm aggregate of predominantly mucus and blood with multiple soft, congested and hemorrhagic irregular tissue fragments. The specimen is submitted in toto in a single cassette labeled A. CEDS Copies To: Vinayak Kaur MD [address] [place] [address] Cedrick Durán MD [address] [place] [address] Dr. Romero [address] [place] [phone] ----- ------- Signed (signature on file) Anahy Minter 12/11/22 1139 ----- ------- END OF REPORT [facility] External Provider LAB BLO OD ORDERABLES Final Result [facility] [address] [place] [phone] * Pap Smear (11/05/2022 2:22 PM EDT) 11/05/2022 2:22 PM EDT 11/06/2022 8:45 AM EDT Oswald [facility] - 11/12/2022 2:11 PM EDT ----- ------- Name: Brenda Manzo Age/Sex: 47/F : 1975 Unit#: [id number] Attend Dr: Cedrick Durán MD Re11/05/22 Status: DEP REF Location: [facility] Disch: ----- ------- SPEC : [id number] RECD: 11/06/22 STATUS: JESSICA VALLADARES NUM: [id number] SABINE: 11/05/22 [facility] DR: Cedrick Durán MD ENTERED: 11/06/22 SP TYPE: Pap Smr OT DR: Vinayak Kaur MD ORDERED: Pap Smear Interpretation Satisfactory for evaluation. Negative for intraepithelial lesion or malignancy. Coccobacilli consistent with shift in vaginal peyton. HPV mRNA E6/E7: NOT DETECTED This assay detects E6/E7 viral messenger RNA (mRNA) from 14 high-risk HPV types (16, 18, 31, 33, 35, 39, 45, 51, 52, 56, 58, 59, 66, 68) HPV testing performed by [facility], [place], [place]. See reference laboratory portion of the EMR for entire report. Clinical Information LMP: Unknown Previous PAP test: Unknown Material Received ThinPrep-Cervical Copies To: Vinayak Kaur MD [address] [place] [id number] Cedrick Durán MD [address] [place], [place] [address] [phone] ----- ------- Signed (signature on file) Adalgisa Palacios 11/12/22 1411 ----- ------- END OF REPORT [facility] External Provider LAB [facility] ORDERABLES Final Result [facility] [address] [place] [address] [phone] * HPV mRNA E6/E7 w/Reflex to HPV Genotypes 16, 18/45 (11/05/2022 2:22 PM EDT) HPV nRNA E6/E7 Not Detected Not Detected [facility] Comment:Methodology: Transcr iption-Mediated AmplificationThis assay detects E6/E7 viral messenger RNA (mRNA) from 14high-risk HPV types (16,18,31,33,35,39,45,51,52,56,58,59,66,68).Cervical sources are required for HPV testing.If a vaginal source from a patient who has had atotal hysterectomy with removal of cervix wassubmitted, please contact the testing laboratoryfor alternative testing options.For additional information, please refer tohttp://education.[employer]/faq/BDM037j3(This link if provided for information/educational purposes only.)THIS TEST WAS PERFORMED AT:[facility] [place] [phone] DASILVA MD HPV mRNA E6/E7 [facility] HPV 16 RNA [facility] HPV 18/45 RNA [facility] 11/05/2022 2:22 PM EDT 11/06/2022 8:45 AM EDT [facility] External Provider LAB CYT OLOGY ORDERABLES Final Result [facility] [address] [place] [address] [phone] * Chlamydia/N. Gonorrhoeae RNA, TMA, Urogenitial (11/05/2022 1:23 PM EDT) CT PCR NOT DETECTED Not Detect. [facility] Comment:A not detected test result does not exclude the possibilityof infection because test results can be affected byimproper specimen collection, concurrent antibiotic therapy,or the number of organisms in the specimen which may bebelow the sensitivity of the test. As with many diagnostictests, results from the Xpert CT/NG assay should beinterpreted in conjunction with other laboratory andclinical data available to the clinician.Xpert CT/NG performance has not been evaluated in patientsless than 14 years of age. The assay should not be used forthe evaluationof suspected sexual abuse or for other medico-legalindications. Additional testing is recommended in anycircumstance when false positive or false negative resultscould lead to adverse medical, social or psychologicalconsequences. NG PCR NOT DETECTED Not Detect. [facility] Comment:A not detected test result does not exclude the possibilityof infection because test results can be affected byimproper specimen collection, concurrent antibiotic therapy,or the number of organisms in the specimen which may bebelow the sensitivity of the test. As with many diagnostictests, results from the Xpert CT/NG assay should beinterpreted in conjunction with other laboratory andclinical data available to the clinician.Xpert CT/NG performance has not been evaluated in patientsless than 14 years of age. The assay should not be used forthe evaluationof suspected sexual abuse or for other medico-legalindications. Additional testing is recommended in anycircumstance when false positive or false negative resultscould lead to adverse medical, social or psychologicalconsequences. 11/05/2022 1:23 PM EDT 11/05/2022 5:36 PM EDT Narrative [facility] - 11/06/2022 10:09 AM EDT Vaginal [facility] Exter nal Provider LAB MICROBIOLOGY - GENERAL ORDERABLES Final Result [facility] [address] [place] [phone] * (ABNORMAL) CBC auto differential (08/30/2022 9:30 AM EST) White Blood Cell Count 4.9 3.8 - 10.8 Thousand/ uL [facility] Red Blood Cell Count 3.84 3.80 - 5.10 Million/u L [facility] Hemoglobin 11.8 11.7 - 15.5 g/dL [facility] Hematocrit 34.6(L) 35.0 - 45.0 % [facility] MCV 90.1 80.0 - 100.0 fL [facility] MCH 30.7 27.0 - 33.0 pg [facility] MCHC 34.1 32.0 - 36.0 g/dL [facility] RDW 13.5 11.0 - 15.0 % [facility] Platelet Count 286 140 - 400 Thousand/ uL [facility] MPV 10.2 7.5 - 12.5 fL [facility] Absolute Neutrophils 2,029 1,500 - 7,800 cells/uL [facility] Absolute Lymphocytes 2,200 850 - 3,900 cells/uL [facility] Absolute Monocytes 392 200 - 950 cells/uL [facility] Absolute Eosinophils 211 15 - 500 cells/uL [facility] Absolute Basophils 69 0 - 200 cells/uL [facility] Neutrophils 41.4 % [facility] Lymphocytes 44.9 % [facility] Monocytes 8.0 % [facility] Eosinophils 4.3 % [facility] Basophils 1.4 % [facility] Blood Venous blood specimen / Unknown 08/30/2022 9:30 AM EST 08/30/2022 9:31 AM EST Vinayak Kaur MD LAB BLOOD ORDERABLES Final Result [facility] [address], [place] [address] [facility] [address] [facility], ([address]) [place] [address] documented in this encounter Visit Diagnoses Diagnosis Other iron deficiency anemia- Primary documented in this encounter Care Teams Home Health Attendant Relationship Specialty Start Date End Date Vinayak Kaur MD [address] [place] [phone] PCP - General Internal Medicine 03/17/21 documented as of this encounter
--- OUTSIDE RECORDS SUMMARY | 2025-05-11 11:32 | XMS_ITS | Patient Health Record ---
Author Organization [facility] Address [address] [place] [phone] Care Team Providers Care Education General Manager Name Role Phone Vinayak Kaur M.D. Primary Care Provider Un available Alli Schaefer Unavailable [phone] Allergies No Known Allergies Reason For Referral No Information Medications Medication SIG (Take, Route, Frequency, Duration) Notes Start Date End Date Status Dulcolax (colon prep) 5 MG take at 3:00 p.m and 7:00p.m. Orally two tablets twice a day for one day; Duration: 1 day 06/29/2023 Active MiraLax (colon prep) 17 GM/SCOOP 1 238Gm bottle mixed with Gatorade or Crystal Light Orally begin at 5:00 p.m. the day before the procedure; Duration: 1 days 06/29/2023 Active Ibuprofen 200 MG [...] Problem Status W/U Status Risk Notes Problem Screening for malignant neoplasm of colon (198969029) Encounter for screening for malignant neoplasm of colon (Z12.11) Active confirmed Problem History of adenomatous polyp of colon (429423329) History of adenomatous polyp of colon (Z86.010) Active confirmed Problem History of polyp of colon (situation) (662875688) Personal history of colonic polyps (Z86.010) Active confirmed Problem Preprocedural examination (539414146511910) Preprocedural examination (Z01.818) Active confirmed Problem Family History of Cancer of Colon (Situation) (098092096) Family history of colon cancer (Z80.0) Active confirmed Plan Of Treatment Future Test Test Name Order Date COLONOSCOPY 11/28/2011 COLONOSCOPY 07/17/2017 COLONOSCOPY 01/09/2023 Insurance Providers Payer Name Payer Address Payer Phone Subscriber Number Group Number Insured Name Patient Relationship to Insured Coverage Start Date Coverage End Date MEDICA[employer] OF [employer] [address] [place] [phone] [id number] KIKE VANN Self - patient is the insured Medical (General) History Medical History History ICD Code Large, approx 1.5 cm tubular adenoma wit h dysplasia removed in 1996 Colonoscopy 1998, 06-12-2006, and 2011 n egative for any adenomas Denies [place],DM,CVA,Lung disease,renal dise ase Anxiety/Depression Colonoscopy 09/2017 with a small tubular adenoma removed Surgical History Surgery Date(Month/Year)
--- OUTSIDE RECORDS SUMMARY | 2025-05-11 11:32 | XMS_ITS | Encounter Summary ---
Author Organization [employer] Address [address] [facility] 7 [place] [address] Care Team Providers Care [facility] Name Role Phone Vinayak Kaur MD Primary Care Provider [phone] Encounter Details Date Type Department Care Team ([facility] Contact Info) Description 03/12/2023 Orders Only [facility] [address] [place] [address] Vinayak Kaur MD [address] [place] [address] Chronic low back pain, unspecified back pain [...] Upcoming Encounters Date Type Department Care Team ([facility] Contact Info) Description 06/03/2025 1:45 PM EST Office Visit [facility] [address] [place] [address] Vinayak Kaur MD [address] [place] [address] documented as of this encounter Visit Diagnoses Diagnosis Chronic low back pain, unspecified back pain laterality, unspecified whether sciatica present- Primary documented in this encounter Additional Health Concerns Assessment Noted Time PHQ-9 Depression Total Score: 16 023 11:01 AM EDT documented as of this encounter Care Teams [facility] Relationship Specialty Start Date End Date Vinayak Kaur MD [address] [place] [address] PCP - General Internal Medicine 03/17/21 documented as of this encounter
--- OUTSIDE RECORDS SUMMARY | 2025-05-11 11:32 | XMS_ITS | Clinical Summary ---
Author Organization [employer] [facility] Address [address] [place] [address] Care Team Providers Care Harvest Worker Fruit Name Role Phone Britany Johnson MD Primary Care Provider Unav ailable Surgical History Surgery Date Site/Laterality Comments COLONOSCOPY PROCEDURE: [place] COLONOSCOPY STOMA DX INCLUDING COLLJ SPEC SPX; [...] (2 - Td or Tdap) 11/18/2023 11/17/2013 Depression Screening 07/15/2024 COVID-19 Vaccine (1 - 2023-2 5 season) 2025 Influenza Vaccine (#1) 2025 03/31/2010 RSV Immunization Adult Patie nts (1 - 1-dose 75+ series) 2051 HIB Vaccines Aged Out No longer eligi [...] age to complete this topic Care Teams Harvest Worker Fruit Relationship Specialty Start Date End Date Britany Johnson MD PCP - General Internal Medicine 12/27/15
--- OUTSIDE RECORDS SUMMARY | 2025-05-11 11:32 | XMS_ITS | Encounter Summary ---
Author Organization [employer] Address [address] [place] [address] Care Team Providers Care Motion Picture Camera Operator Name Role Phone Vinayak Kaur MD Primary Care Provider [phone] Reason for Visit * Reason Onset Date Comments r/s appt 08/16/2022 Encounter Details Date Type Department Care Team (Late Contact Info) Description 08/16/2022 Telephone [facility] [address] [place] [address] Vinayak Kaur MD [address] [place] [address] r/s appt Social History Tobacco Use Types Packs/Day Years Used Date Smoking Tobacco: Never Assessed Comments Unknown Sex and Gender Information Value Date Recorded Sex Assigned at Female 05/14/2022 10:14 AM EDT Legal Sex Female 10:14 AM EDT Gender Identity Female 05/14/2022 10:14 AM EDT Sexual Orientation Straight 05/14/2022 10 :14 AM EDT documented as of this encounter Miscellaneous Notes * Telephone Encounter - Mabel Marc Infante - 08/16/2022 11:53 AM EST Tc from pt requesting to r/s appt for 08/16/2022 at 11:30 am for [facility]. Pt stated she had a flat tired incident. Please contact pt at [phone] documented in this encounter Plan of Treatment Upcoming Encounters Date Type Department Care Team (Late Contact Info) Description 06/03/2025 1:45 PM EST Office Visit [facility] MED & PEDS [address] [place] [address] Vinayak Kaur MD [address] [place] [address] documented as of this encounter Visit Diagnoses Not on filedocumented in this encounter Care Teams Motion Picture Camera Operator Relationship Specialty Start Date End Date Vinayak Kaur MD [address] [place] [address] PCP - General Internal Medicine 03/17/21 documented as of this encounter
--- OUTSIDE RECORDS SUMMARY | 2025-05-11 11:32 | XMS_ITS | Encounter Summary ---
Author Organization [employer] Address [address] [place] [address] Care Team Providers Care Japanese Professor Name Role Phone Vinayak Karu MD Primary Care Provider [phone]- [phone] Encounter Details Date Type Department Care Team ([facility] st Contact Info) Description 01/15/2024 Orders Only [facility] MED & PEDS [address] [place] [address] Vinayak Kaur MD [address] [place] [address] Other proteinuria (Primary Dx); Low vitamin D level Social History Tobacco Use Types Packs/Day Years Used Date Smoking Tobacco: Every Day Cigarettes 0.3 18 Smokeless Tobacco: Never Depression Answer Date Recorded Patient Health Questionnaire-9 Score 13 01/15/2024 Patient Health Questionnaire-9 Score 13 01/15/2024 Last PHQ-9: Questionnaire Data Not on file 0 01/15/2024 Housing Stability Answer Date Recorded What is your housing situation today? I have yannick morrow 05/02/[address] you li ve. Do you have problems with any of the following? None of the above 05/02/2023 Food Insecurity Answer Date Recorded Within the past 12 months, y ou worried that your food would run out before you got money to buy more: Never True 05/02/2023 Within the past 12 months,th e food you bought just didn't last and you didn't have enough money to get more: Never True Transportation Answer Date Recorded In the past 12 months, has l ack of transportation kept you from medical appts, meetings, work or from getting things needed for daily living? No 05/02/2023 Utilities Answer Date Recorded In the past 12 months, has t he electric, gas, oil or water company threatened to shut off services in your home? No 05/02/2023 Depression Answer Date Recorded Patient Health Questionnaire-2 Score 4 01/15/2024 Comments Unknown Sex and Gender Information Value Date Recorded Sex Assigned at Female 05/14/2022 10:14 AM EDT Legal Sex Female 10:14 AM EDT Gender Identity Female 05/14/2022 10:14 AM EDT Sexual Orientation Straight 05/14/2022 10 :14 AM EDT documented as of this encounter Functional Status * Over the past 2 weeks, how often have you been bothered by any of the following problems? Question Answer Date of Assessment Author Patient Health Questionnaire-2 Score 4 09/2023 11:07 AM Florinda Canas [place] * If you checked off any problems on this questionnaire so far, Question Answer Date of Assessment Author How difficult have these problems made it for you to do your work, take care of things at home, or get along with other people? Somewhat difficult 01/15/2024 11:07 AM Florinda Canas [place] * Over the past 2 weeks, how often have you been bothered by any of the following problems? Question Answer Date of Assessment Author Little interest or pleasure in doing things More than half the days 01/15/2024 11:07 AM Florinda Canas MA Feeling down, depressed, or hopeless More than half the days 01/15/2024 11:07 AM Florinda Canas [place] Trouble falling or staying asleep, or sleeping too much More than half the days 01/15/2024 11:07 AM Florinda Canas MA Feeling tired or having little energy More than half the days 01/15/2024 11:07 AM Florinda Canas MA Poor appetite or overeating More than half the days 01/15/2024 11:07 AM Florinda Canas [place] Feeling bad about yourself - or that you are a failure or have let yourself or your family down Not at all 01/15/2024 11:07 AM Florinda Canas [place] Trouble concentrating on things, such as reading the newspaper or watching television Nearly every day 01/15/2024 11:07 AM EDT Florinda Stockton MA Moving or speaking so slowly that other people could have noticed? Or the opposite - being so fidgety or restless that you have been moving around a lot more than usual. Not at all 01/15/2024 11:07 AM PAULOT Florinda Stockton MA Thoughts that you would be better off or hurting yourself in some way Not at all 01/15/2024 11:07 AM EDT Florinda Stockton M A Patient Health Questionnaire-9 Score 13 01/15/2024 11:07 AM EDT Florinda Stockton MA documented as of this encounter Plan of Treatment Upcoming Encounters Date Type Department Care Team (Late st Contact Info) Description 06/03/2025 1:45 PM EST Office Visit [facility] MED & PEDS [address] [place] [address] Vinayak Kaur MD [address] [place] [address] Scheduled Orders Name Type Priority Associated Diagnoses Orde r Schedule Albumin, Random Urine W/Creatinine Lab Routine Other proteinuria Expected: 01/15/2024 (Approximate), Expires: 01/14/2025 documented as of this encounter Visit Diagnoses Diagnosis Other proteinuria- Primary Low vitamin D level documented in this encounter Additional Health Concerns Assessment Noted Time PHQ-9 Depression Total Score: 13 024 11:07 AM EDT documented as of this encounter Care Teams Japanese Professor Relationship Specialty Start Date End Date Vinayak Kaur MD [address] [place] [address] PCP - General Internal Medicine 03/17/21 documented as of this encounter
--- OUTSIDE RECORDS SUMMARY | 2025-05-11 11:32 | XMS_ITS | Encounter Summary ---
Author Organization [employer] Address [address] [facility] [address] [place] [address] Care Team Providers Care Deputy Sheriff Generalist/Bailiff Name Role Phone Vinayak Kaur MD Primary Care Provider [phone]- [phone] Encounter Details Date Type Department Care Team ([facility] st Contact Info) Description 02/19/2025 Orders Only [facility] & PEDS [address] [place] [address] Vinayak Kaur MD [address] [place] [address] Normocytic anemia (Primary Dx) Social History Tobacco Use Types Packs/Day Years Used Date Smoking Tobacco: Every Day Cigarettes 0.3 18 Smokeless Tobacco: Never Depression Answer Date Recorded Patient Health Questionnaire-9 Score 19 02/18/2025 Patient Health Questionnaire-9 Score 19 02/18/2025 Last PHQ-9: Questionnaire Data Not on file 0 02/18/2025 Housing Stability Answer Date Recorded What is your housing situation today? I have yannick morrow 02/18/[address] you li ve. Do you have problems with any of the following? None of the above 02/18/2025 Food Insecurity Answer Date Recorded Within the past 12 months, y ou worried that your food would run out before you got money to buy more: Never True 02/18/2025 Within the past 12 months,th e food you bought just didn't last and you didn't have enough money to get more: Never True 01/2025 Transportation Answer Date Recorded In the past 12 months, has l ack of transportation kept you from medical appts, meetings, work or from getting things needed for daily living? No 02/18/2025 Utilities Answer Date Recorded In the past 12 months, has t he electric, gas, oil or water company threatened to shut off services in your home? No 02/18/2025 Depression Answer Date Recorded Patient Health Questionnaire-2 Score 4 02/18/2025 Internet Access Answer Date Recorded Internet Access Q1 Yes 02/18/2025 Internet Access Q2 Not on file 02/18/2025 Comments Unknown Sex and Gender Information Value Date Recorded Sex Assigned at Female 05/14/2022 10:14 AM EDT Legal Sex Female 10:14 AM EDT Gender Identity Female 05/14/2022 10:14 AM EDT Sexual Orientation Straight 05/14/2022 10 :14 AM EDT documented as of this encounter Plan of Treatment Upcoming Encounters Date Type Department Care Team ([facility] st Contact Info) Description 06/03/2025 1:45 PM EST Office Visit [facility] [address] [place] [address] Vinayak Kaur MD [address] [place] [address] Scheduled Orders Name Type Priority Associated Diagnoses Orde r Schedule Hemoglobin A1c Lab Routine Normocytic anemia Expected: 02/19/2025 (Approximate), Expires: 02/19/2026 Glucose, Whole Blood Lab Routine Normocytic anemia Expected: 02/19/2025 (Approximate), Expires: 02/19/2026 Iron And Total Iron Binding Capacity Lab Routine Normocytic anemia Expected: 02/19/2025, Expires: 02/19/2026 Ferritin Lab Routine Normocytic anemia Expected: 02/19/2025, Expires: 02/19/2026 Reticulocyte Count Lab Routine Normocytic anemia Expected: 02/19/2025, Expires: 02/19/2026 documented as of this encounter Visit Diagnoses Diagnosis Normocytic anemia- Primary Unspecified anemia documented in this encounter Additional Health Concerns Assessment Noted Time PHQ-9 Depression Total Score: 19 025 2:36 PM EDT documented as of this encounter Care Teams Deputy Sheriff Generalist/Bailiff Relationship Specialty Start Date End Date Vinayak Kaur MD [address] [place] [address] PCP - General Internal Medicine 03/17/21 documented as of this encounter
--- OUTSIDE RECORDS SUMMARY | 2025-05-11 11:32 | XMS_ITS | Encounter Summary ---
Author Organization [employer] Address [address] [facility] [address] [place] [address] Care Team Providers Care Director Of Instruction Name Role Phone Vinayak Kaur MD Primary Care Provider [phone]- [phone] Reason for Visit * Reason Comments Med Refill Encounter Details Date Type Department Care Team ([facility] Contact Info) Description 09/26/2022 Refill [facility] [address] [place] [address] Janette Orozco CNM [address] [place] [address] Dysmenorrhea (Primary Dx) Social History Tobacco Use Types Packs/Day Years Used Date Smoking Tobacco: Every Day Cigarettes 0.3 18 Smokeless Tobacco: Never Comments Unknown Sex and Gender Information Value Date Recorded Sex Assigned at Female 05/14/2022 10:14 AM EDT Legal Sex Female 10:14 AM EDT Gender Identity Female 05/14/2022 10:14 AM EDT Sexual Orientation Straight 05/14/2022 10 :14 AM EDT COVID-19 Exposure Response Date Recorded In the last 10 days, have yo u been in contact with someone who was confirmed or suspected to have Coronavirus/COVID-19? No / Unsure 09/17/2022 8:52 AM EST documented as of this encounter Plan of Treatment Upcoming Encounters Date Type Department Care Team ([facility] Contact Info) Description 06/03/2025 1:45 PM EST Office Visit [facility] & PEDS [address] [place], [place] [id number] Vinayak Kaur MD [address] [place], [place] [id number] documented as of this encounter Visit Diagnoses Diagnosis Dysmenorrhea- Primary documented in this encounter Additional Health Concerns Assessment Noted Time PHQ-9 Depression Total Score: 14 023 9:08 AM EST documented as of this encounter Care Teams Director Of Instruction Relationship Specialty Start Date End Date Vinayak Kaur MD [address] [place] [address] PCP - General Internal Medicine 03/17/21 documented as of this encounter
--- OUTSIDE RECORDS SUMMARY | 2025-05-11 11:33 | XMS_ITS | Clinical Summary ---
Author Organization [employer] Address [address] [facility] 7[address] [place] [address] Care Team Providers Care Educational Diagnostician Name Role Phone Vinayak Kaur MD Primary Care Provider Allergies No known active allergies Medications amitriptyline (Elavil) 25 MG tablet Take 1 tablet by mouth at bed time. 2 Active ferrous sulfate 325 (65 Fe) MG tabletIndicatio ns:Weight loss TAKE 1 TABLET BY MOUTH EVERY OTHER DAY 45 tablet 1 3 Active hydrOXYzine HCl (Atarax) 25 MG tabletIndicatio ns:Anxiety TAKE 1 TABLET BY MOUTH IF NEEDED IN THE MORNING, AT NOON, AND AT BEDTIME FOR ITCHING. 90 tablet 3 3 Active lidocaine (Lidoderm) 5 % patchIndication s:Muscle spasm Apply 1 patch topically in the morning. Remove & discard patch within 12 hours or as directed by MD. 30 patch 4 Active ibuprofen 800 MG tabletIndicatio ns:Muscle spasm,Chronic migraine without aura without status migrainosus, not intractable Take 1 tablet (800 mg) by mouth if needed each day for mild pain. 30 tablet 3 4 Active Minoxidil (Minoxidil for Men) 5 % foamIndications :Alopecia areata To apply to the scalp daily as directed 60 g 2 5 Active ferrous sulfate (Fe Tabs) 325 (65 Fe) MG EC tabletIndicatio ns:Normocytic anemia Do not crush, chew, or split. One tab every other day 30 tablet 11 5 Active PARoxetine (Paxil) 20 MG tabletIndicatio ns:Anxiety,Hot flashes due to menopause Take 1 tablet (20 mg) by mouth in the morning. 30 tablet 11 5 04/19/20 26 Active PARoxetine (Paxil) 10 MG tabletIndicatio ns:Anxiety,Hot flashes due to menopause Take 1 tablet (10 mg) by mouth in the morning. 30 tablet 11 5 04/19/20 25 Discontinu ed(Therapy completed) Active Problems Problem Noted Date Diagnosed Date Tobacco dependence syndrome 10/03/2021 Migraine 03/17/2021 Weight loss 03/17/2021 Encounters Date Type Department Care Team Description 04/19/2025 2:30 PM EDT Office Visit [facility] [address] [place] [phone] Vinayak Kaur MD Normocytic anemia (Primary Dx); Anxiety; Hot flashes due to menopause 04/19/2025 Travel 02/19/2025 Results Follow-Up [facility] [address] [place] [address] Subha Rodas RN CBC auto differential, Comprehensive Metabolic Panel, Lipid Panel, Standard, Additional followed-up results: 2 02/19/2025 Orders Only [facility] [address] [place] [address] Vinayak Kaur MD Normocytic anemia (Primary Dx) 02/18/2025 2:00 PM EDT Office Visit [facility] [address] [place] [address] Vinayak Kaur MD Annual physical exam (Primary Dx); Alopecia areata; Encounter for screening colonoscopy; Anxiety; Hot flashes due to menopause 02/18/2025 Travel 02/11/2025 Patient Outreach [facility] [address] [place] [address] Vinayak Kaur MD Pre-visit Planning (Pre visit planning unable to LVM ) from Last 3 Months Immunizations Immunization Administration Dates Next Due Pneumococcal Conjugate PCV 20 01/15/2024 Tdap 01/15/2024 Social History Tobacco Use Types Packs/Day Years Used Date Smoking Tobacco: Every Day Cigarettes 0.3 18 Smokeless Tobacco: Never Tobacco Cessation:Ready to Q uit: Not Asked; Counseling Given: Not Answered Depression Answer Date Recorded Patient Health Questionnaire-9 [...] Orientation Straight 05/14/2022 10 :14 AM EDT Last Filed Vital Signs Vital Sign Reading Time Taken Comments Blood Pressure 125/75 04/19/2025 2:29 PM EDT Pulse 73 04/19/2025 2:29 PM EDT Temperature 36.8 C (98.2 F) 02/18/2025 2:06 PM EDT Respiratory Rate 20 04/19/2025 2:29 PM EDT Oxygen Saturation 99% 02/18/2025 2:06 PM EDT Inhaled Oxygen Concentration - - Weight 55.3 kg (122 lb) 04/19/2025 2:29 PM EDT Height 156 cm (5' 1.42 ) 04/19/2025 2:29 PM EDT Body Mass Index 22.74 04/19/2025 2:29 PM EDT Plan of Treatment Upcoming Encounters Date Type Department Care Team ([facility] st Contact Info) Description 06/03/2025 1:45 PM EST Office Visit [facility] [address] [place] [address] Vinayak Kaur MD [address] [place] [address] Health Maintenance Due Date Last Done Comments CT Colonography 1975 Colonoscopy 1975 Colorectal Cancer Screening 1975 FIT DNA/Cologuard 1975 FIT 1975 FOBT 1975 Sigmoidoscopy 1975 Disability Screening 1975 Family Planning (PISQ) 1991 Hepatitis B Vaccines (1 of 3 - 19+ 3-dose series) 1995 Depression Monitoring 08/21/2025 02/18/2025, 025 Pap Smear 11/05/2025 11/05/2022, 04/11/2021 Influenza Vaccine (#1) 2026 03/31/2010 Postp oned from 03/15/2025 (Patient Refused) Alcohol/Substance Use Screening 02/18/2026 02/18/2025 SDOH Screening 02/18/2026 02/18/2025 COVID-19 Vaccine ( season) 2026 Postponed from 03/15/2025 (Patient Refused) Tobacco Screening 04/19/2026 04/19/2025 Zoster Vaccines (1 of 2) 2026 Mammogram 06/04/2026 06/04/2024, 11/0 03/2023, 05/17/2022, Additional history exists Cervical Cancer Screening 11/06/2027 HPV/Cotest 11/06/2027 11/05/2022, 04/11/2021 Lipid Panel 02/18/2030 02/18/2025, 04/11/2021 DTaP/Tdap/Td Vaccines (3 - Td or Tdap) 01/14/2034 01/15/2024, 11/17/2013, 03/12/2005 RSV Patients and Patients Aged 60 years or older (1 - 1-dose 75+ series) 2051 HIV Screening Completed 04/11/2021 Hepatitis C Screening Completed 01/15/2024 Pneumococcal Vaccine: Pediatrics (0 to 5 Years) and At-Risk Patients (6 to 49) Years Completed 01/15/2024 HIB Vaccines Aged Out No longer eligi [...] patient's age to complete this topic Meningococcal Vaccine Aged Out No jeny tasneem eligible based on patient's age to complete this topic RSV under 20 months Aged Out No longe r eligible based on patient's age to complete this topic Rotavirus Vaccines Aged Out No longer eligible based on patient's age to complete this topic Procedures Procedure Name Priority Date/Time Associated Diagnosis Comments VITAMIN B12/FOLATE, SERUM PANEL Routine 02/18/2025 2:39 PM EDT Anxiety TSH W/REFLEX TO FT4 Routine 02/18/2025 2 :39 PM EDT Annual physical exam LIPID PANEL, STANDARD Routine 02/18/2025 2:39 PM EDT Annual physical exam COMPREHENSIVE METABOLIC PANEL Routine 02/18/2025 2:39 PM EDT Annual physical exam CBC WITH AUTO DIFFERENTIAL Routine 02/18/2025 2:39 PM EDT Annual physical exam BI MAMMOGRAM SCREENING TOMOSYNTHESIS BILATERAL Routine 06/04/2024 3:50 PM EST HEPATITIS PANEL, GENERAL Routine 01/15/2024 11:59 AM EDT Mixed hyperlipidemia HPV MRNA E6/E7 REFLEX TO HPV 16, 18/45 Routine 11/05/2022 2:22 PM EDT Other iron deficiency anemia PAP SMEAR Routine 11/05/2022 2:22 PM EDT Other iron deficiency anemia HIV 1/2 ANTIGEN/ANTIBODY, FOURTH GENERATION W/RFL Routine 04/11/2021 9:58 AM EDT from Last 3 Months or Most Recently Relevant to Health Maintenance Results * Vitamin B12/Folate, Serum Panel (02/18/2025 2:39 PM EDT) Vitamin B12 333 200 - 900 pg/mL [facility] Comment:NORMAL 200-900 PG/ML INDETERMINATE 160-199 PG/ML DEFICIENT < 160 PG/ML Folate 11.3 > or = 4.0 ng/mL [facility] Comment:Reference Values:> o r = 4.0 ng/mL< 4.0 ng/mL suggests folate deficiency Methotrexate, aminopterin and folinic acid(leucovorin) are chemotherapeutic agents whose molecularstructures are similar to folate; therefore, the Architectfolate assay cannot be used for patients using these drugs. Blood Venous blood specimen / Unknown 02/18/2025 2:39 PM EDT 02/18/2025 5:30 PM EDT us Vinayak Kaur MD LAB BLOOD ORDERABLES Final Result [facility] [address] [place] [phone] * TSH with Reflex to Free T4 (02/18/2025 2:39 PM EDT) TSH reflex Free T4 1.13 0.32 - 4.0 uIU/mL [facility] Blood Venous blood specimen / Unknown 02/18/2025 2:39 PM EDT 02/18/2025 5:30 PM EDT us Vinayak Kaur MD LAB BLOOD ORDERABLES Final Result [facility] [address] [place], [place] [phone] * (ABNORMAL) CBC auto differential (02/18/2025 2:39 PM EDT) White Blood Count 7.0 4.8 - 10.8 X10*3/uL [facility] Red Blood Count 3.71(L) 4.20 - 5.50 X10*6/uL [facility] Hemoglobin 11.2(L) 12.0 - 16.0 g/dl [facility] Hematocrit 33.6(L) 37.0 - 47.0 % [facility] Mean Corpuscular Volume 90.6 80.0 - 98.0 fL [facility] Mean Corpuscular Hemoglobin 30.2 27.0 - 33.0 pg [facility] Mean Corpuscular HGB Conc 33.3 31.0 - 35.0 g/dl [facility] Red Cell Distribution Width 14.4 11.0 - 16.0 % [facility] Platelet Count 274 160 - 400 X10*3/uL [facility] Mean Platelet Volume 9.9 9.4 - 12.3 fL [facility] Neutrophils Percent Auto 52.9 45 - 73 % [facility] Imm Gran Pct Auto 0.1 0.0 - 0.4 % [facility] Lymphocytes Percent Auto 35.9 20 - 40 % [facility] Monocytes Percent Auto 4.9 2 - 11 % [facility] Eosinophils Percent Auto 4.9(H) 0 - 4 % [facility] Basophils Percent Auto 1.3 0 - 2 % [facility] NRBC Pct Auto 0.0 0.0 - 0.2 /100WBC [facility] Neutrophils Absolute Auto 3.7 2.0 - 8.3 x10*3/uL [facility] Imm Gran Abs Auto 0.01 0.00 - 0.03 X10*3/uL [facility] Lymphocytes Absolute Auto 2.5 1.2 - 4.9 X10*3/uL [facility] Monocytes Absolute Auto 0.3 0.1 - 1.2 X10*3/uL [facility] Eosinophils Absolute Auto 0.3 0.0 - 0.4 X10*3/uL [facility] Basophils Absolute Auto 0.1 0.0 - 0.2 X10*3/uL [facility] NRBC Abs Auto 0.000 0.0 - 0.012 X10*3/uL [facility] Blood Venous blood specimen / Unknown 02/18/2025 2:39 PM EDT 02/18/2025 5:30 PM EDT us Vinayak Kaur MD LAB BLOOD ORDERABLES Final Result [facility] [address] [place] [phone] * (ABNORMAL) Lipid Panel, Standard (02/18/2025 2:39 PM EDT) Triglycerides 58 <150 mg/dL [facility] Comment:Desirable Triglyceri de: less than 150 mg/dLBorderline High Triglyceride 150-199 mg/dLHigh Triglyceride: 200-499 mg/dLVery High Triglyceride: greater than or equal to 5OO mg/dL Cholesterol 255(H) <200 mg/dL [facility] Comment:Desirable Cholestero l: less than 200 mg/dLBorderline High Cholesterol: 200-239 mg/dLHigh Cholesterol: greater than 239 mg/dL LDL Cholesterol Calculated 160(H) <100 mg/dL [facility] Comment:Desirable LDL: less than 100 mg/dLNear Optimal/Above Optimal LDL: 110- 129 mg/dLBorderline High LDL: 130-159 mg/dLHigh LDL: 160-189 mg/dLVery High LDL: greater than or equal to 190 mg/dL HDL Cholesterol 84 >40 mg/dL [facility] Comment:Desirable HDL: great er than 40 mg/dL Note: This HDL assay may give artificially low results in patients with liver disease. Blood Venous blood specimen / Unknown 02/18/2025 2:39 PM EDT 02/18/2025 5:30 PM EDT us Vinayak Kaur MD LAB BLOOD ORDERABLES Final Result [facility] [address] [place] [phone] * (ABNORMAL) Comprehensive Metabolic Panel (02/18/2025 2:39 PM EDT) Sodium 141 135 - 145 mmol/L [facility] Potassium 3.9 3.3 - 5.1 mmol/L [facility] Chloride 106 96 - 108 mmol/L [facility] Carbon Dioxide 28 22 - 29 mmol/L [facility] Anion Gap 11(L) 12 - 20 [facility] Urea Nitrogen (BUN) 17(H) 9 - 16 mg/dL [facility] Creatinine, Serum 0.74 0.5 - 1.4 mg/dL [facility] Estimated Glomerular Filt Rate >60 [facility] Comment:Chronic Kidney Disea se: Estimated GFR < 60 mL/min/1.69u7Pvwbzf Kidney Disease: Estimated GFR < 15 mL/min/1.73m2 Glucose 136(H) 60 - 115 mg/dL [facility] Calcium 9.0 8.4 - 10.2 mg/dL [facility] Bilirubin, Total 0.2 0.0 - 1.0 mg/dL [facility] Aspartate Amino Transferase 23 5 - 31 U/L [facility] Alanine Aminotransferase 12 0 - 31 U/L [facility] Total Protein 6.8 6.5 - 8.0 g/dL [facility] Albumin Level 4.1 3.5 - 5.0 g/dL [facility] Alkaline Phosphatase 86 39 - 117 U/L [facility] Blood Venous blood specimen / Unknown 02/18/2025 2:39 PM EDT 02/18/2025 5:30 PM EDT us Vinayak Kaur MD LAB BLOOD ORDERABLES Final Result [facility] [address] [place] [address] [phone] * BI Mammogram Screening Tomosynthesis Bilateral (06/04/2024 3:50 PM EST) Anatomical Region Laterality Modality Breast Bilateral Mammography 06/04/2024 3:50 PM EST Narrative 06/15/2024 9:44 AM EST [facility] [address] [place] [address] Mammography Report Signed Patient: Brenda Manzo MR#: [id number] 0 : 1975 Acct:[id number] Age/Sex: 49 / F ADM Date: 06/04/24 Loc: HO.MAMMO Attending Dr: Vinayak Kaur MD Ordering Physician: Vinayak Kaur MD Results: 1 Negative Date of Service: 06/04/24 Follow Up: 1 Year From Orig ina Mammogram Procedure(s): MM tomosynthesis screening BI Accession Number(s): [id number] cc: Vinayak Kaur MD EXAMINATION: MM SCREENING DIGITAL BREAST TOMOSYNTHESIS, BILATERAL CLINICAL INFORMATION: Screening. Asymptomatic. COMPARISON: Mammography: Comparison is made with available priors TECHNIQUE: Digital breast mammography with tomosynthesis is performed in both the craniocaudal and mediolateral oblique views along with computer-aided detection (CAD). FINDINGS: There are scattered areas of fibroglandular density (ACR BI-RADS breast composition Category b). There are no significant masses, abnormal calcifications, or other abnormalities. MM/MM tomosynthesis screening BI IMPRESSION: No mammographic evidence of malignancy. ASSESSMENT: BI-RADS BI-RADS 1 - Negative RECOMMENDATION: Routine annual mammography screening. 1 year F/U This examination should not preclude the clinical evaluation of a suspicious palpable abnormality. This patient's information was entered into a reminder system with a target due date for their next mammogram. Electronically signed by: Libertad Healy DO 06/15/2024 09:41 AM EST Dictated By: Libertad Healy DO Signed By: <Electronically signed by Libertad Healy DO in OV> 06/15/24 09 DD/ 1550 TD/TT: 06/04/24 1606 Steward/Stewardess: Procedure Note Donotreynainterpreter, Image - 06/15/2024 [facility] [address] [place] [address] Mammography Report Signed Patient: Brenda ManzoMR#: [id number] 0 : 1975Acct:[id number] Age/Sex: 49 / FADM Date: 06/04/24 Loc: HO.MAMMO Attending Dr: Vinayak Kaur MD Ordering Physician: Vinayak Kaur MDResults: 1 Negative Date of Service: 06/04/24Follow Up: 1 Year From Orig inal Mammogram Procedure(s): MM tomosynthesis screening BI Accession Number(s): [id number] cc: Vinayak Kaur MD EXAMINATION: MM SCREENING DIGITAL BREAST TOMOSYNTHESIS, BILATERAL CLINICAL INFORMATION: Screening. Asymptomatic. COMPARISON: Mammography: Comparison is made with available priors TECHNIQUE: Digital breast mammography with tomosynthesis is performed in both the craniocaudal and mediolateral oblique views along with computer-aided detection (CAD). FINDINGS: There are scattered areas of fibroglandular density (ACR BI-RADS breast composition Category b). There are no significant masses, abnormal calcifications, or other abnormalities. MM/MM tomosynthesis screening BI IMPRESSION: No mammographic evidence of malignancy. ASSESSMENT: BI-RADS BI-RADS 1 - Negative RECOMMENDATION: Routine annual mammography screening. 1 year F/U This examination should not preclude the clinical evaluation of a suspicious palpable abnormality. This patient's information was entered into a reminder system with a target due date for their next mammogram. Electronically signed by: Libertad Healy DO 06/15/2024 09:41 AM EST Dictated By: Libertad Healy DO Signed By: <Electronically signed by Libertad Healy DO in OV> 06/15/24 0941 DD/ 1550 TD/TT: 06/04/24 1606 Steward/Stewardess: us Vinayak Kaur MD IMG BI PROCEDURES Final Res ult * Hepatitis A,B,C Profile (01/15/2024 11:59 AM EDT) Hepatitis A IgM Nonreactive Nonreactive [facility] Comment:IgM antibodies to AVENDAÑO V not detected; does not exclude earlyacute or recovered HAV infection. ~Hepatitis B Surface Antibody REACTIVE Nonreactive [facility] Comment:REACTIVE: > 11.99 mI U/mL Hepatitis B Core Antibody Nonreactive Nonreactive [facility] Hepatitis C Antibody Nonreactive Nonreactive [facility] Comment:Antibodies to HCV no t detected; does not exclude early acuteHCV infection. Hepatitis B Surface Ag Negative Negative [facility] Blood Venous blood specimen / Unknown 01/15/2024 11:59 AM EDT 01/15/2024 2:07 PM EDT us Vinayak Kaur MD LAB BLOOD ORDERABLES Final Result [facility] [address] [place] [phone] * HPV mRNA E6/E7 w/Reflex to HPV Genotypes 16, 18/45 (11/05/2022 2:22 PM EDT) HPV nRNA E6/E7 Not Detected Not Detected [facility] Comment:Methodology: Transcr iption-Mediated AmplificationThis assay detects E6/E7 viral messenger RNA (mRNA) from 14high-risk HPV types (16,18,31,33,35,39,45,51,52,56,58,59,66,68).Cervical sources are required for HPV testing.If a vaginal source from a patient who has had atotal hysterectomy with removal of cervix wassubmitted, please contact the testing laboratoryfor alternative testing options.For additional information, please refer tohttp://education.TRELYS/faq/RRU680r4(This link if provided for information/educational purposes only.)THIS TEST WAS PERFORMED AT:[facility] [place] [phone] DASILVA MD HPV mRNA E6/E7 TNP [facility] HPV 16 RNA TNP [facility] HPV 18/45 RNA TNP [facility] 11/05/2022 2:22 PM EDT 11/06/2022 8:45 AM EDT us [facility] External Provider LAB CYT OLOGY ORDERABLES Final Result [facility] [address] [place] [address] [phone] * Pap Smear (11/05/2022 2:22 PM EDT) 11/05/2022 2:22 PM EDT 11/06/2022 8:45 AM EDT Narrative [facility] - 11/12/2022 2:11 PM EDT ----- ------- Name: Brenda Manzo Age/Sex: 47/F : 1975 Unit#: [id number] Attend Dr: Cedrick Durán MD Re11/05/22 Status: DEP REF Location: [facility] Disch: ----- ------- SPEC : [id number] RECD: 11/06/22 STATUS: JESSICA VALLADARES NUM: [id number] SABINE: 11/05/[address] [facility] [address]: Cedrick Durán MD ENTERED: 11/06/22 SP TYPE: Pap Smr OTHR DR: Vinayak Kaur MD ORDERED: Pap Smear Interpretation Satisfactory for evaluation. Negative for intraepithelial lesion or malignancy. Coccobacilli consistent with shift in vaginal peyton. HPV mRNA E6/E7: NOT DETECTED This assay detects E6/E7 viral messenger RNA (mRNA) from 14 high-risk HPV types (16, 18, 31, 33, 35, 39, 45, 51, 52, 56, 58, 59, 66, 68) HPV testing performed by [facility], [place], [place]. See reference laboratory portion of the EMR for entire report. Clinical Information LMP: Unknown Previous PAP test: Unknown Material Received ThinPrep-Cervical Copies To: Vinayak Kaur MD [address] [place] [address] [phone] Cedrick Durán MD [address] [place], [place] [address] [address] ----- ------- Signed (signature on file) Adalgisa Fauzia Palacios 11/12/22 1411 ----- ------- END OF REPORT [facility] External Provider LAB CYT OLOGY ORDERABLES Final Result [facility] [address] [place] [phone] * HIV 1/2 ANTIGEN/ANTIBODY,FOURTH GENERATION W/RFL (04/11/2021 9:58 AM EDT) HIV-1/2 ANTIGEN AND ANTIBODIES, 4TH GENERATION W/ REFLEX NON-REACT TOM NON-REACT TOM [facility] Comment: HIV-1 antigen and HIV-1/HIV-2 antibodies were not detected. There is no laboratory evidence of HIV infection. PLEASE NOTE: This information has been disclosed to you from records whose confidentiality may be protected by state law. If your state requires such protection, then the state law prohibits you from making any further disclosure of the information without the specific written consent of the person to whom it pertains, or as otherwise permitted by law. A general authorization for the release of medical or other information is NOT sufficient for this purpose. For additional information please refer to http://education.TRELYS/faq/BSH022 (This link is being provided for informational/ educational purposes only.) The performance of this assay has not been clinically validated in patients less than 2 years old. 04/11/2021 9:58 AM EDT Vinayak Kaur MD LAB BLOOD ORDERABLES Final Result Performing Organization Address City/[facility]/ZIP Co de Phone Number [facility] [address] from Last 3 Months or Most Recently Relevant to Health Maintenance [facility] [employer] AD[employer] Care Teams Educational Diagnostician Relationship Specialty Start Date End Date Vinayak Kaur MD [address] [place] [address] [place] [address] PCP - General Internal Medicine 03/17/21
[2025-05-11 14:35] LABS: Reticulocytes Absolute 0.032 X10*6/uL (0.026-0.095)
[2025-05-11 14:44] LABS: Iron 103 mcg/dL (30-160); Percent Iron Saturation 39 % (15-50); Total Iron Binding Capacity 266 mcg/dL (228-428); Unsaturated Iron Binding 163 ug/dL
[2025-05-11 15:00] LABS: Ferritin 135 ng/mL (10-250)
== END 2025-05-11 09:50 | disposition home or self-care (01) ==
LOC: HO.CHCLDS 09:49
PROVIDERS: Visit Provider Internal Medicine
DX: D64.9 Anemia, unspecified (principal)
CPT/HCPCS: 36415; 82728; 83036; 83540; 85045

== ENCOUNTER 2025-06-02 15:19 | Outpatient (REF) | payer MEDICAID, SELFPAY | END 2025-06-02 15:20 | disposition home or self-care (01) | LOC: HO.LNP 15:19 | PROVIDERS: PCP Internal Medicine; Visit Provider Obstetrics & Gynecology | DX: Z01.419 Encounter for gynecological examination (general) (routine) without abnormal findings (principal); Z79.899 Other long term (current) drug therapy | CPT/HCPCS: 99396 ==

== ENCOUNTER 2025-06-02 15:19 | Outpatient (AMB) | payer MEDICAID, SELFPAY ==
[2025-06-02 15:45] VITALS: BP 106/64; BMI 21.6
--- NOTE | 2025-06-02 15:45 | MHC.OFFVIS ---
Vital Signs 06/02/25 15:45 Height 5 ft 2 in Weight 118 lb 4 oz BMI 21.6 BP 106/64 Blood Pressure Location Lt brachial Position Sitting Intake Visit Reasons: [employer] annual exam/do not reschedule Signs And Displays Salesperson Required: No Financial Director: Financial Director Present Allergies No Known Allergies (No Known Allergies*) Allergy (Verified 06/02/25 15:49) Medication List - Last Reconciled 06/02/25 by Henny Sharma LPN acetaminophen (Tylenol) 650 mg (2 x 325 mg) PO Q6H PRN cyclobenzaprine 5 mg PO TID PRN ferrous sulfate 325 mg PO DAILY 30 days hydroxyzine HCl 25 mg PO DAILY PRN mirtazapine 15 mg PO BEDTIME Is last menstrual period known: Yes Post menopausal: Yes Patient : No HPI Comments Details: Presenting for annual exam. No complaints. Last Pap/HPV was negative in 11/04 Last Mammogram was BI-RADS 1 in 06/07 Last screening colonoscopy was in 07/06 [facility] Medical History Abnormal colonoscopy Depression Anxiety Migraines Surgical History Hx of colonoscopy Family History Paternal Aunt Breast CA Mother Colon cancer Father Prostate cancer Social History Alcohol intake: current Alcohol intake frequency: a few times a month Patient Tobacco Use Status: Current everyday Tobacco user Tobacco use type: Cigarette Cigarettes Per Day: 5 Substance Use Type: Marijuana Patient : No Female Reproductive History Menstrual Age of Menarche: 16 Total pregnancies: 3 Full term: 2 Ab induced: 1 Date of last pap smear: 11/05/22 History of abnormal pap smear: No History of STI: No Date of Mammogram: 05/15/24 History of abnormal mammogram: Yes Review of Systems Const All systems reviewed & are unremarkable except as noted in HPI and below Card Reports as per HPI Resp Reports as per HPI GI Reports as per HPI and Reports no additional complaints Reports as per HPI Physical Exam Vital Signs: Last Vital Signs BP 106/64 06/02/25 15:45 BMI result Body Mass Index 21.6 Const General: cooperative, healthy appearing and comfortable Chest Chest palpation & inspection: normal inspection of the chest and normal palpation of entire chest wall Breast/axilla inspection: normal inspection of the breasts and normal inspection of the axillae Breast/axilla palpation: normal palpation of the breasts, normal palpation of the axillae and no axillary lymphadenopathy Resp Effort & Inspection: normal respiratory effort Auscultation: clear to auscultation bilaterally Percussion: percussion normal Cardio Palpation: normal PMI Rate: regular rate Rhythm: regular rhythm Heart sounds: no murmurs and no rubs Peripheral pulses: Peripheral pulses 2+ throughout GI Inspection: Yes normal to inspection Palpation (GI): Soft to palpation, nontender, no guarding, not rigid and No hepatosplenomegaly present Percussion: Yes normal to percussion Auscultation: normal bowel sounds Rectal Exam - Female: deferred General: Yes bladder normal to palpation External Female Exam: No lesion Speculum Exam - Vagina: normal appearance of the vagina, normal palpation, normal vaginal discharge and not erythematous Speculum Exam - Cervix: normal appearance of the cervix and normal palpation Bimanual exam- vagina & uterus: normal bimanual exam, normal palpation, uterine size normal, bladder normal to palpation, consistency normal and normal palpation Bimanual Exam- Adnexa, other: normal adnexae, no masses and no tenderness Assessment & Plan Assessment & Plan (1) Well woman exam: Code(s): Z01.419 - Encounter for gynecological examination (general) (routine) without abnormal findings Category: Medical Plan: Cotesting not indicated this year. Mammogram ordered. Counseled the patient about the recommended dietary allowance of 1000 mg of Calcium & 600 IU of vitamin D. The patient was instructed to perform monthly self-breast exams and to schedule an annual exam in a year; All questions answered and the patient verbalized understanding. Instructed the patient to schedule annual exam in a year Orders: Orders MM tomosynthesis screening BI Today Z12.31 - Encounter for screening mammogram for malignant neoplasm of breast Coding Level of Care Code Est Pt Prev Care 40-64y(53147) Diagnoses Well woman exam Z01.419
--- NOTE | 2025-06-02 15:58 | MHC.OFFVIS ---
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 Allergies No Known Allergies (No Known Allergies*) Allergy (Verified 06/02/25 15:49) Medication List - Last Reconciled 06/02/25 by Henny Sharma LPN acetaminophen (Tylenol) 650 mg (2 x 325 mg) PO Q6H PRN cyclobenzaprine 5 mg PO TID PRN ferrous sulfate 325 mg PO DAILY 30 days hydroxyzine HCl 25 mg PO DAILY PRN mirtazapine 15 mg PO BEDTIME PFSH Medical History Abnormal colonoscopy Depression Anxiety Migraines Surgical History Hx of colonoscopy Family History Paternal Aunt Breast CA Mother Colon cancer Father Prostate cancer Social History Alcohol intake: current Alcohol intake frequency: a few times a month Patient Tobacco Use Status: Current everyday Tobacco user Tobacco use type: Cigarette Cigarettes Per Day: 5 Substance Use Type: Marijuana Patient : No Female Reproductive History Menstrual Age of Menarche: 16 Ab induced: 1 Physical Exam Vital Signs: Last Vital Signs BP 106/64 06/02/25 15:45 BMI result Body Mass Index 21.6 Assessment & Plan Assessment & Plan (1) Well woman exam: Code(s): Z01.419 - Encounter for gynecological examination (general) (routine) without abnormal findings Category: Medical Orders: Orders MM tomosynthesis screening BI Today Z12.31 - Encounter for screening mammogram for malignant neoplasm of breast Coding Diagnoses Well woman exam Z01.419
--- OUTSIDE RECORDS SUMMARY | 2025-06-03 03:54 | XMS_ITS | Patient Health Record ---
Author Organization [facility] Address [address] [place] [id number] Care Team Providers Care Glue Spreading Machine Operator Name Role Phone Vinayak Kaur M.D. Primary Care Provider Un available Alli Schaefer Unavailable [phone] Allergies No Known Allergies Reason For Referral No Information Medications Medication SIG (Take, Route, Frequency, Duration) Notes Start Date End Date Status Dulcolax (colon prep) 5 MG Tablet Delayed Release take at 3:00 p.m and 7:00p.m. Orally two tablets twice a day for one day; Duration: 1 day 06/29/2023 Active MiraLax (colon prep) 17 GM/SCOOP Powder 1 238Gm bottle mixed with Gatorade or Crystal Light Orally begin at 5:00 p.m. the day before the procedure; Duration: 1 days 06/29/2023 Active Ibuprofen 200 MG Tablet 1 tablet with fo od or milk as needed Orally prn Active PARoxetine HCl 20 MG Tablet TAKE 1/2 TABLET BY MOUTH EVERY AM FOR 4-7 DAYS THEN 1 TABLET BY MOUTH EVERY AM Oral prn Active Immunizations Vaccine Route Administration Date Status Comme nts Influenza Unknown 01/09/2023 Refused Social History Tobacco Use: Social History Observation Description Date Details (start date - stop date) Current Smoker NA - NA Social History Tobacco Use: Social Info Question Answer Notes Tobacco Use/Smoking Patient is a current smoker How often do you smoke cigarettes? every day How many cigarettes a day do you smoke? 5 or less How soon after you wake up do you smoke your first cigarette? within 5 minutes Are you interested in quitting? 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 alcohol Smoker 3-4 cigs QD; no sig. alcohol Smoker 3-4 cigs QD; no sig. alcohol Problems Problem Type SNOMED Code ICD Code Onset Dates Problem Status W/U Status Risk Notes Problem Screening for malignant neoplasm of colon (804779562) Encounter for screening for malignant neoplasm of colon (Z12.11) Active confirmed Problem History of adenomatous polyp of colon (434020791) History of adenomatous polyp of colon (Z86.010) Active confirmed Problem History of polyp of colon (situation) (921158419) Personal history of colonic polyps (Z86.010) Active confirmed Problem Preprocedural examination (477947590926952) Preprocedural examination (Z01.818) Active confirmed Problem Family History of Cancer of Colon (Situation) (576092574) Family history of colon cancer (Z80.0) Active confirmed Plan Of Treatment Future Test Test Name Order Date COLONOSCOPY 11/28/2011 COLONOSCOPY 07/17/2017 COLONOSCOPY 01/09/2023 Insurance Providers Payer Name Payer Address Payer Phone Subscriber Number Group Number Insured Name Patient Relationship to Insured Coverage Start Date Coverage End Date [employer] [place] [address] [place] [phone] [id number] KIKE VANN Self - patient is the insured Medical (General) History Medical History History ICD Code Large, approx 1.5 cm tubular adenoma wit h dysplasia removed in 1996 Colonoscopy 1998, 06-12-2006, and 2011 n egative for any adenomas Denies NH,DM,CVA,Lung disease,renal dise ase Anxiety/Depression Colonoscopy 09/2017 with a small tubular adenoma removed Surgical History Surgery Date(Month/Year)
--- OUTSIDE RECORDS SUMMARY | 2025-06-03 03:54 | XMS_ITS | Encounter Summary ---
Author Organization [employer] Address [address] [facility] [address] [place] [address] Care Team Providers Care Cheese Wrapper Name Role Phone Vinayak Kaur MD Primary Care Provider [phone] Reason for Visit * Reason Onset Date Comments r/s appt 08/16/2022 Encounter Details Date Type Department Care Team ([facility] st Contact Info) Description 08/16/2022 Telephone [facility] [address] [place] [address] Vinayak Kaur MD [address] [place] [address] r/s appt Social History Tobacco Use Types [...] Notes * Telephone Encounter - Mabel Marc Arelis - 08/16/2022 11:53 AM EST Tc from pt requesting to r/s appt for 08/16/2022 at 11:30 am for [facility] N[facility]. Pt stated she had a flat tired incident. Please contact pt at [phone] documented in this encounter Plan of Treatment Not on file documented as of this encounter Visit Diagnoses Not on filedocumented in this encounter Care Teams Cheese Wrapper Relationship Specialty Start Date End Date Vinayak Kaur MD [address] [place] [id number] PCP - General Internal Medicine 03/17/21 documented as of this encounter
--- OUTSIDE RECORDS SUMMARY | 2025-06-03 03:54 | XMS_ITS | Encounter Summary ---
Author Organization [facility] Address [address] [facility] [address] [place] [address] Care Team Providers Care Prn Occupational Therapist Name Role Phone Vinayak Kaur MD Primary Care Provider [phone] Encounter Details Date Type Department Care Team ([facility] st Contact Info) Description 03/12/2023 Orders Only [facility] [address] [place] [address] Vinayak Kaur MD [address] [place] [address] Chronic low back pain, unspecified back pain [...] documented as of this encounter Care Teams Prn Occupational Therapist Relationship Specialty Start Date End Date Vinayak Kaur MD [address] [place] [id number] PCP - General Internal Medicine 03/17/21 documented as of this encounter
--- OUTSIDE RECORDS SUMMARY | 2025-06-03 03:55 | XMS_ITS | Clinical Summary ---
Author Organization [employer] Address [address] [facility] 7t [place] [address] Care Team Providers Care Shared Services And Outsourcing Manager Name Role Phone Vinayak Kaur MD Primary Care Provider [phone]- [phone] Allergies No known active allergies Medications amitriptyline (Elavil) 25 MG tablet Take 1 tablet by mouth at bed time. 2 Active ferrous sulfate 325 (65 Fe) MG tabletIndication s:Weight loss TAKE 1 TABLET BY MOUTH EVERY OTHER DAY 45 tablet 1 3 Active hydrOXYzine HCl (Atarax) 25 MG tabletIndication s:Anxiety TAKE 1 TABLET BY MOUTH IF NEEDED IN THE MORNING, AT NOON, AND AT BEDTIME FOR ITCHING. 90 tablet 3 3 Active lidocaine (Lidoderm) 5 % patchIndications :Muscle spasm Apply 1 patch topically in the morning. Remove & discard patch within 12 hours or as directed by MD. 30 patch 4 Active ibuprofen 800 MG tabletIndication s:Muscle spasm,Chronic migraine without aura without status migrainosus, not intractable Take 1 tablet (800 mg) by mouth if needed each day for mild pain. 30 tablet 3 4 Active Minoxidil (Minoxidil for Men) 5 % foamIndications: Alopecia areata To apply to the scalp daily as directed 60 g 2 5 Active ferrous sulfate (Fe Tabs) 325 (65 Fe) MG EC tabletIndication s:Normocytic anemia Do not crush, chew, or split. One tab every other day 30 tablet 11 5 Active PARoxetine (Paxil) 20 MG tabletIndication s:Anxiety,Hot flashes due to menopause Take 1 tablet (20 mg) by mouth in the morning. 30 tablet 11 5 04/19/20 26 Active Active Problems Problem Noted Date Diagnosed Date Tobacco dependence syndrome 10/03/2021 Migraine 03/17/2021 Weight loss 03/17/2021 Encounters Date Type Department Care Team Description 2025 Results Follow-Up [facility] [address] [place] [address] Raegan Schwartz RN Hemoglobin A1c, Iron And Total Iron Binding Capacity, Ferritin, Reticulocyte Count 04/19/2025 2:30 PM EDT Office Visit [facility] [address] [place] [address] Vinayak Kaur MD Normocytic anemia (Primary Dx); Anxiety; Hot flashes due to menopause 04/19/2025 Travel from Last 3 Months Immunizations Immunization Administration [...] is your housing situation today? I have yannicknik morrow 02/18/[address] you [...] the past 12 months, has t he [employer], oil or water [employer] threatened to shut off services in your [...] 04/19/2025 2:29 PM EDT Plan of Treatment Health Maintenance Due Date Last Done Comments CT Colonography 1975 FIT DNA/Cologuard 1975 FIT 1975 FOBT 1975 Sigmoidoscopy 1975 Disability Screening 1975 Family Planning (PISQ) 1991 Hepatitis B Vaccines (1 of 3 - 19+ 3-dose series) 1995 Depression Monitoring 08/21/2025 02/18/2025, 025 Pap Smear 11/05/2025 11/05/2022, 04/11/2021 Influenza Vaccine (#1) 2026 03/31/2010 Postp oned from 03/15/2025 (Patient Refused) Alcohol/Substance Use Screening 02/18/2026 02/18/2025 SDOH Screening 02/18/2026 02/18/2025 COVID-19 Vaccine (1 - 2025-26 season) 2026 Postponed from 03/15/2025 (Patient Refused) Tobacco Screening 04/19/2026 04/19/2025 Diabetes: Hemoglobin A1C 05/11/202605/11/ 025, 01/15/2024, 02/07/2023, Additional history exists Zoster Vaccines (1 of 2) 2026 Mammogram 06/04/2026 06/04/2024, 11/0 03/2023, 05/17/2022, Additional history exists Cervical Cancer Screening 11/06/2027 HPV/Cotest 11/06/2027 11/05/2022, 04/11/2021 Colonoscopy 07/01/2028 07/01/2023 Colorectal Cancer Screening 07/01/2028 Lipid Panel 02/18/2030 02/18/2025, 04/11/2021 DTaP/Tdap/Td Vaccines [...] Procedure Name Priority Date/Time Associated Diagnosis Comments RETICULOCYTE COUNT Routine 05/11/2025 9: 51 AM EDT Normocytic anemia FERRITIN Routine 05/11/2025 9:51 AM EDT Normocytic anemia IRON AND TOTAL IRON BINDING CAPACITY Routine 05/11/2025 9:51 AM EDT Normocytic anemia HEMOGLOBIN A1C Routine 05/11/2025 9:51 AM EDT Normocytic anemia LIPID PANEL, STANDARD Routine 02/18/2025 2:39 PM [...] Recently Relevant to Health Maintenance Results * Iron And Total Iron Binding Capacity (05/11/2025 9:51 AM EDT) Iron 103 30 - 160 mcg/dL [facility] Total Iron Binding Capacity 266 228 - 428 mcg/dL [facility] Percent Iron Saturation 39 15 - 50 % [facility] Unsaturated Iron Binding 163 ug/dL [facility] Blood Venous blood specimen / Unknown 05/11/2025 9:51 AM EDT 05/11/2025 2:09 PM EDT us Vinayak Kaur MD LAB BLOOD ORDERABLES Final Result [facility] [address] [place] [address] [phone] * (ABNORMAL) Reticulocyte Count (05/11/2025 9:51 AM EDT) Reticulocytes Absolute 0.032 0.026 - 0.095 X10*6/uL [facility] Immature Retic Fraction 2.8(L) 3.0 - 15.9 % [facility] Retic HGB Equivalent 35.9(H) 30.0 - 35.0 pg [facility] Reticulocyte Percent 0.8 0.5 - 1.8 % [facility] Blood Venous blood specimen / Unknown 05/11/2025 9:51 AM EDT 05/11/2025 2:21 PM EDT Vinayak Kaur MD LAB BLOOD ORDERABLES Final Result Performing Organization Address [facility]/ZIP Co de Phone Number [facility] [address] [place] [phone] * Hemoglobin A1c (05/11/2025 9:51 AM EDT) Hemoglobin A1c 5.7 <6.0 % [facility] Comment:Hemoglobin A1C Refer ence Range Adults: 4.8 - 6.0 % Non diabetic: < 6.0 % Goal: < 7.0 %Additional Action Suggested: > 8.0 %Note: Hemoglobin A1c results are invalid for patients with abnormal amounts of HbF. Blood transfusions may impact the HbA1c concentration in the patient sample. Estimated Average Glucose 117 mg/dL [facility] Comment:eAG = Estimated ave rage glucose which is %A1C expressed asaverage glucose, using the formula of the K2U-QbgwozsPosdcob Glucose study (ADAG), Diabetes Care, Vol.31,#8,Feb. 2007 Blood Venous blood specimen / Unknown 05/11/2025 9:51 AM EDT 05/11/2025 2:21 PM EDT us Vinayak Kaur MD LAB BLOOD ORDERABLES Final Result Performing Organization Address City/[facility]/ZIP Co de Phone Number [facility] [address] [place] [address] [phone] * Ferritin (05/11/2025 9:51 AM EDT) Ferritin 135 10 - 250 ng/mL [facility] Blood Venous blood specimen / Unknown 05/11/2025 9:51 AM EDT 05/11/2025 2:09 PM EDT us Vinayak Kaur MD LAB BLOOD ORDERABLES Final Result [facility] [address] [place] [address] [phone] * (ABNORMAL) Lipid Panel, Standard (02/18/2025 2:39 PM EDT) Triglycerides 58 <150 mg/dL [facility] Comment:Desirable Triglyceri de: less than 150 mg/dLBorderline High Triglyceride 150-199 mg/dLHigh Triglyceride: 200-499 mg/dLVery High Triglyceride: greater than or equal to 5OO mg/dL Cholesterol 255(H) <200 mg/dL [facility] Comment:Desirable Cholestero l: less than 200 mg/dLBorderline High Cholesterol: 200-239 mg/dLHigh Cholesterol: greater than 239 mg/dL LDL Cholesterol Calculated 160(H) <100 mg/dL [facility] Comment:Desirable LDL: less than 100 mg/dLNear Optimal/Above Optimal LDL: 110- 129 mg/dLBorderline High LDL: 130-159 mg/dLHigh LDL: 160-189 mg/dLVery High LDL: greater than or equal to 190 mg/dL HDL Cholesterol 84 >40 mg/dL [facility] Comment:Desirable HDL: great er than 40 mg/dL Note: This HDL assay may give artificially low results in patients with liver disease. Blood Venous blood specimen / Unknown 02/18/2025 2:39 PM EDT 02/18/2025 5:30 PM EDT us Vinayak Kaur MD LAB BLOOD ORDERABLES Final Result [facility] [address] [place] [address] [phone] * BI Mammogram Screening Tomosynthesis Bilateral (06/04/2024 3:50 PM EST) Anatomical Region Laterality Modality Breast Bilateral Mammography 06/04/2024 3:50 PM EST Narrative 06/15/2024 9:44 AM EST [facility] [address] [place] [address] Mammography Report Signed Patient: Brenda Manzo MR#: [id number] 0 : 1975 Acct:[id number] Age/Sex: 49 / F ADM Date: 06/04/24 Loc: HO.MAMMO Attending Dr: Vinayak Kaur MD Ordering Physician: Vinayak Kaur MD Results: 1 Negative Date of Service: 06/04/24 Follow Up: 1 Year From [facility] Mammogram Procedure(s): MM tomosynthesis screening BI Accession Number(s): [id number] cc: Vinayak Kaur MD EXAMINATION: MM SCREENING [...] DO 06/15/2024 09:41 AM EST Dictated By: Tyminski,Libertad DO Signed By: <Electronically signed by Libertad Healy DO in OV> 06/15/24 09 DD/ 1550 TD/TT: 06/04/24 1606 [employer]: Procedure Note Donotreynainterpreter, Image - 06/15/2024 [facility] [address] [place], [place] [address] Mammography Report Signed Patient: Brenda ManzoMR#: [id number] 0 : 1975Acct:[id number] Age/Sex: 49 / FADM Date: 06/04/24 Loc: HO.MAMMO Attending Dr: Vinayak Kaur MD Ordering Physician: Vinayak Kaur MDResults: 1 Negative Date of Service: 06/04/24Follow Up: 1 Year From Orig ina Mammogram Procedure(s): MM tomosynthesis screening BI Accession Number(s): [id number] cc: Vinayak Kaur MD EXAMINATION: MM SCREENING [...] 06/15/2024 09:41 AM EST Dictated By: Libertad Heayl DO Signed By: <Electronically signed by Libertad Healy DO in OV> 06/15/24 09 DD/ 1550 TD/TT: 06/04/24 1606 [employer]: us Vinayak Kaur MD IMG BI PROCEDURES Final Res ult * Hepatitis A,B,C Profile (01/15/2024 11:59 AM EDT) Hepatitis A IgM Nonreactive Nonreactive [facility] Comment:IgM antibodies to AVENDAÑO V not detected; does not exclude earlyacute or recovered HAV infection. ~Hepatitis B Surface Antibody REACTIVE Nonreactive [facility] Comment:REACTIVE: > 11.99 mI U/mL Hepatitis B Core Antibody Nonreactive Nonreactive [facility] Hepatitis C Antibody Nonreactive Nonreactive [facility] Comment:Antibodies to HCV no t detected; does not exclude early acuteHCV infection. Hepatitis B Surface Ag Negative Negative [facility] Blood Venous blood specimen / Unknown 01/15/2024 11:59 AM EDT 01/15/2024 2:07 PM EDT us Vinayak Kaur MD LAB BLOOD ORDERABLES Final Result [facility] [address] [place] [address] [phone] * HPV mRNA E6/E7 w/Reflex to HPV Genotypes 16, 18/45 (11/05/2022 2:22 PM EDT) HPV nRNA E6/E7 Not Detected Not Detected [facility] Comment:Methodology: Transcr iption-Mediated AmplificationThis assay detects E6/E7 viral messenger RNA (mRNA) from 14high-risk HPV types (16,18,31,33,35,39,45,51,52,56,58,59,66,68).Cervical sources are required for HPV testing.If a vaginal source from a patient who has had atotal hysterectomy with removal of cervix wassubmitted, please contact the testing laboratoryfor alternative testing options.For additional information, please refer tohttp://education.[employer]_AID/faq/FLD528l2(This link if provided for information/educational purposes only.)THIS TEST WAS PERFORMED AT:[employer] [place] [phone] DASILVA MD HPV mRNA E6/E7 TNP [facility] HPV 16 RNA TNP [facility] HPV 18/45 RNA TNP [facility] 11/05/2022 2:22 PM EDT 11/06/2022 8:45 AM EDT [facility] External Provider LAB CYT OLOGY ORDERABLES Final Result [facility] [address] [place] [address] [phone] * Pap Smear (11/05/2022 2:22 PM EDT) 11/05/2022 2:22 PM EDT 11/06/2022 8:45 AM EDT Narrative [facility] - 11/12/2022 2:11 PM EDT ----- ------- Name: Brenda Manzo Age/Sex: 47/F : 1975 Unit#: [id number] Attend Dr: Cedrick Durán MD Re11/05/22 Status: DEP REF Location: HOAleLNP Disch: ----- ------- SPEC : [id number] RECD: 11/06/22 STATUS: JESSICA VALLADARES NUM: [id number] SABINE: 11/05/[address] [facility] [address]: Cedrick Durán MD ENTERED: 11/06/22 [...] 59, 66, 68) HPV testing performed by [facility], [place], [place]. See reference laboratory portion of the EMR for entire report. Clinical Information LMP: Unknown Previous PAP test: Unknown Material Received ThinPrep-Cervical Copies To: Vinayak Kaur MD [address] [place] [address] [phone] Cedrick Durán MD [address] [place] [phone] ----- ------- Signed (signature on file) Adalgisa Fauzia Palacios 11/12/22 1411 ----- ------- END OF REPORT [facility] External Provider LAB CYT OLOGY ORDERABLES Final Result [facility] [address] [place] [address] [phone] * HIV 1/2 ANTIGEN/ANTIBODY,FOURTH GENERATION W/RFL (04/11/2021 9:58 AM EDT) HIV-1/2 ANTIGEN AND ANTIBODIES, 4TH GENERATION W/ REFLEX NON-REACT TOM NON-REACT TOM [facility] Comment: HIV-1 antigen and HIV-1/HIV-2 [...] purpose. For additional information please refer to http://education.[employer]_AID/faq/BWS430 (This link is being provided for informational/ educational purposes only.) The performance of this assay has not been clinically validated in patients less than 2 years old. 04/11/2021 9:58 AM EDT Vinayak Kaur MD LAB BLOOD ORDERABLES Final Result Performing Organization Address City/[facility]/ZIP Co de Phone Number [facility] [address] from Last 3 Months or Most Recently Relevant to Health Maintenance Insurance [facility] C[place] STAND ADULT [employer] INSURANCE Care Teams Shared Services And Outsourcing Manager Relationship Specialty Start Date End Date Vinayak Kaur MD [address] [place] [phone] PCP - General Internal Medicine 03/17/21
--- OUTSIDE RECORDS SUMMARY | 2025-06-03 03:55 | XMS_ITS | Encounter Summary ---
Author Organization [employer] Address [address] [facility] [address] 7[address] [place] [address] Care Team Providers Care Farm Marketer Name Role Phone Vinayak Kaur MD Primary Care Provider [phone] Encounter Details Date Type Department Care Team ([facility] st Contact Info) Description 01/15/2024 Orders Only [facility] [address] [place] [address] Vinayak Kaur MD [address] [place] [address] Other proteinuria (Primary Dx); Low vitamin D [...] 09/2023 11:07 AM Florinda Canas [place] * How difficult have these problems made it for you to do your work, take care of things at home, or get along with other people? Answer Date of Assessment Author Somewhat difficult 01/15/2024 11:07 AM Florinda Canas [...] usual. Not at all 01/15/2024 11:07 AM EDT Florinda Stockton MA Thoughts that you would be better off or hurting yourself in some way Not at all 01/15/2024 11:07 AM EDT Florinda Stockton M A Patient Health Questionnaire-9 Score 13 01/15/2024 11:07 AM EDT Florinda Stockton MA documented as of this encounter Plan of Treatment Scheduled Orders Name Type Priority Associated Diagnoses [...] documented as of this encounter Care Teams Farm Marketer Relationship Specialty Start Date End Date Vinayak Kaur MD [address] [place] [address] [place] [address] PCP - General Internal Medicine 03/17/21 documented as of this encounter
--- OUTSIDE RECORDS SUMMARY | 2025-06-03 03:55 | XMS_ITS | Encounter Summary ---
Author Organization [email or web address] Address [address] [facility] 7t [place] [address] Care Team Providers Care Nuclear Power Plant Engineer Name Role Phone Vinayak Kaur MD Primary Care Provider [phone] Reason for Visit * Reason Comments Med Refill Encounter Details Date Type Department Care Team ([facility] st Contact Info) Description 09/26/2022 Refill [facility] [address] [place] [address] Janette Orozco CN [address] [place] [address] Dysmenorrhea (Primary Dx) Social History Tobacco Use [...] Noted Time PHQ-9 Depression Total Score: 14 03/2 023 9:08 AM EST documented as of this encounter Care Teams Nuclear Power Plant Engineer Relationship Specialty Start Date End Date Vinayak Kaur MD [address] [place] [address] PCP - General Internal Medicine 03/17/21 documented as of this encounter
--- OUTSIDE RECORDS SUMMARY | 2025-06-03 03:55 | XMS_ITS | Encounter Summary ---
Author Organization [employer] Address [address] [facility] 7t [place] [address] Care Team Providers Care Vision Teacher Name Role Phone Vinayak Kaur MD Primary Care Provider [phone] Encounter Details Date Type Department Care Team (Late st Contact Info) Description 08/27/2022 Orders Only [facility] [address] [place] [address] Vinayak Kaur MD [address] [facility] [address] [place], [place] [phone] Other iron deficiency anemia (Primary Dx) Social [...] (02/07/2023 1:36 PM EDT) Color Urine Yellow [facility] Appearance Urine Cloudy [facility] PH 5.5 5.0 - 9.[address] [facility] Glucose Urine UA Negative Negative mg/dL [facility] Urine Blood Negative Negative [facility] Specific [place] - Urine 1.020 1.005 - 1.[address] [facility] Urine Protein Negative Neg-Trace mg/dL [facility] Urine Ketones Trace Negative mg/dL [facility] Nitrite Urine Negative Negative [facility] Leukocyte Esterase Urine Negative Negative [facility] 02/07/2023 1:36 PM EDT 02/07/2023 2:23 PM EDT Vinayak Kaur MD LAB URINE ORDERABLES Final Result [facility] [address] [place] [phone] * Hematoxylin and Eosin Stain (12/05/2022 3:03 PM EDT) 12/05/2022 3:03 PM EDT 12/06/2022 7:16 AM EDT Narrative [facility] - 12/11/2022 11:39 AM EDT ----- ------- Name: Brenda Manzo Age/Sex: 47/F : 1975 Unit#: [id number] Attend Dr: Cedrick Durán MD Re12/05/22 Status: [facility] REF Location: [facility] Disch: ----- ------- SPEC : [id number] RECD: 12/06/22 STATUS: JESSICA JACQUELYN NUM: [id number] SABINE: 12/05/22-[address] [facility] [address]: Cedrick Durán MD ENTERED: 12/06/22 SP TYPE: Surgical OTHR DR: Vinayak Kaur MD [...] A. CEDS Copies To: Vinayak Kaur MD [address] [place] [phone] Cedrick Durán MD [address] [place] [address] [phone] ----- ------- Signed (signature on file) Anahy [place] 12/11/22 1139 ----- ------- END OF REPORT [facility] External Provider LAB BLO OD ORDERABLES Final Result [facility] [address] [place] [phone] * Pap Smear (11/05/2022 2:22 PM EDT) 11/05/2022 2:22 PM EDT 11/06/2022 8:45 AM EDT Narrative [facility] - 11/12/2022 2:11 PM EDT ----- ------- Name: Brenda Manzo Age/Sex: 47/F : 1975 Unit#: [id number] Attend Dr: Cedrick Durán MD Re11/05/22 Status: [facility] ----- ------- SPEC : [id number] RECD: 11/06/22 STATUS: JESSICA VALLADARES NUM: [id number] SABINE: 11/05/[address] [facility] [address]: Cedrick Durán MD ENTERED: 11/06/22 SP [...] 59, 66, 68) HPV testing performed by [facility], [place], [place]. See reference laboratory portion of the EMR for entire report. Clinical Information LMP: Unknown Previous PAP test: Unknown Material Received ThinPrep-Cervical Copies To: Vinayak Kaur MD [address] [place] [address] [phone] Cedrick Durán MD [address] [place], [place] [address] [address] ----- ------- Signed (signature on file) Adalgisa Fuazia Palacios 11/12/22 1411 ----- ------- END OF REPORT [facility] External Provider LAB CYT OLOGY ORDERABLES Final Result Performing Organization Address [facility] [place] [facility] de Phone Number [facility] [address] [place] [phone] * HPV mRNA E6/E7 w/Reflex to HPV Genotypes 16, 18/45 (11/05/2022 2:22 PM EDT) HPV nRNA E6/E7 Not Detected Not Detected [facility] Comment:Methodology: Transcr iption-Mediated AmplificationThis assay detects E6/E7 viral messenger RNA (mRNA) from 14high-risk HPV types (16,18,31,33,35,39,45,51,52,56,58,59,66,68).Cervical sources are required for HPV testing.If a vaginal source from a patient who has had atotal hysterectomy with removal of cervix wassubmitted, please contact the testing laboratoryfor alternative testing options.For additional information, please refer tohttp://education.[employer]/faq/YYU754z7(This link if provided for information/educational purposes only.)THIS TEST WAS PERFORMED AT:[employer] [place] [phone] DASILVA MD HPV mRNA E6/E7 [facility] HPV 16 RNA [facility] HPV 18/45 RNA [facility] 11/05/2022 2:22 PM EDT 11/06/2022 8:45 AM EDT [facility] External Provider LAB CYT OLOGY ORDERABLES Final Result Performing Organization Address [facility] Co de Phone Number [facility] [address] [place] [phone] * Chlamydia/N. Gonorrhoeae RNA, TMA, Urogenitial (11/05/2022 1:23 PM EDT) CT PCR NOT DETECTED Not Detect. [facility] Comment:A not detected test result [...] psychologicalconsequences. NG PCR NOT DETECTED Not Detect. [facility] Comment:A not detected test result [...] PM EDT 11/05/2022 5:36 PM EDT Narrative [facility] - 11/06/2022 10:09 AM EDT Vaginal us [facility] Exter nal Provider LAB MICROBIOLOGY - GENERAL ORDERABLES Final Result [facility] [address] [place] [address] [phone] * (ABNORMAL) CBC auto differential (08/30/2022 9:30 AM EST) White Blood Cell Count 4.9 3.8 - 10.8 Thousand/ uL [facility] Red Blood Cell Count 3.84 3.80 - 5.10 Million/u L [facility] Hemoglobin 11.8 11.7 - 15.5 g/dL [facility] Hematocrit 34.6(L) 35.0 - 45.0 % [facility] MCV 90.1 80.0 - 100.0 fL [facility] MCH 30.7 27.0 - 33.0 pg [facility] MCHC 34.1 32.0 - 36.0 g/dL [facility] RDW 13.5 11.0 - 15.0 % [facility] Platelet Count 286 140 - 400 Thousand/ uL [facility] MPV 10.2 7.5 - 12.5 fL [facility] Absolute Neutrophils 2,029 1,500 - 7,800 cells/uL [facility] Absolute Lymphocytes 2,200 850 - 3,900 cells/uL [facility] Absolute Monocytes 392 200 - 950 cells/uL [facility] Absolute Eosinophils 211 15 - 500 cells/uL [facility] Absolute Basophils 69 0 - 200 cells/uL [facility] Neutrophils 41.4 % [facility] Lymphocytes 44.9 % [facility] Monocytes 8.0 % [facility] Eosinophils 4.3 % [facility] Basophils 1.4 % [facility] Blood Venous blood specimen / Unknown 08/30/2022 9:30 AM EST 08/30/2022 9:31 AM EST us Thevenin Beauzile MD LAB BLOOD ORDERABLES Final Result [facility] [address] [facility] [place] [phone] [facility] [address] [facility], ([address]) [place] [phone] documented in this encounter Visit Diagnoses Diagnosis Other iron deficiency anemia- Primary documented in this encounter Care Teams Vision Teacher Relationship Specialty Start Date End Date Vinayak Kaur MD [address] [place] [phone] PCP - General Internal Medicine 03/17/21 documented as of this encounter
--- OUTSIDE RECORDS SUMMARY | 2025-06-03 03:55 | XMS_ITS | Encounter Summary ---
Author Organization [employer] Address [address] [facility] 7t [place] [address] Care Team Providers Care Press Offbearer Name Role Phone Vinayak Kaur MD Primary Care Provider [phone] Encounter Details Date Type Department Care Team ([facility] st Contact Info) Description 02/19/2025 Orders Only [facility] MED & PEDS [address] [place] [address] Vinayak Kaur MD [address] [place] [address] Normocytic anemia (Primary Dx) Social History Tobacco [...] Type Priority Associated Diagnoses Orde r Schedule Glucose, Whole Blood Lab Routine Normocytic anemia Expected: 02/19/2025 (Approximate), Expires: 02/19/2026 documented as of this encounter Procedures Procedure Name Priority Date/Time Associated Diagnosis Comments IRON AND TOTAL IRON BINDING CAPACITY Routine 05/11/2025 9:51 AM EDT Normocytic anemia RETICULOCYTE COUNT Routine 05/11/2025 9: 51 AM EDT Normocytic anemia HEMOGLOBIN A1C Routine 05/11/2025 9:51 AM EDT Normocytic anemia FERRITIN Routine 05/11/2025 9:51 AM EDT Normocytic anemia documented in this encounter Results * (ABNORMAL) Reticulocyte Count (05/11/2025 9:51 AM EDT) Reticulocytes Absolute 0.032 0.026 - 0.095 X10*6/uL [facility] Immature Retic Fraction 2.8(L) 3.0 - 15.9 % [facility] Retic HGB Equivalent 35.9(H) 30.0 - 35.0 pg [facility] Reticulocyte Percent 0.8 0.5 - 1.8 % [facility] Blood Venous blood specimen / Unknown 05/11/2025 9:51 AM EDT 05/11/2025 2:21 PM EDT us Vinayak Kaur MD LAB BLOOD ORDERABLES Final Result Performing Organization Address [facility]/ZIP Co de Phone Number [facility] [address] [place] [phone] * Ferritin (05/11/2025 9:51 AM EDT) Ferritin 135 10 - 250 ng/mL [facility] Blood Venous blood specimen / Unknown 05/11/2025 9:51 AM EDT 05/11/2025 2:09 PM EDT us Vinayak Kaur MD LAB BLOOD ORDERABLES Final Result Performing Organization Address [facility] Co de Phone Number [facility] [address] [place] [phone] * Iron And Total Iron Binding Capacity (05/11/2025 9:51 AM EDT) Iron 103 30 - 160 mcg/dL [facility] Total Iron Binding Capacity 266 228 - 428 mcg/dL [facility] Percent Iron Saturation 39 15 - 50 % [facility] Unsaturated Iron Binding 163 ug/dL [facility] Blood Venous blood specimen / Unknown 05/11/2025 9:51 AM EDT 05/11/2025 2:09 PM EDT us Vinayak Kaur MD LAB BLOOD ORDERABLES Final Result Performing Organization Address [facility] Co de Phone Number [facility] [address] [place] [address] [phone] * Hemoglobin A1c (05/11/2025 9:51 AM EDT) Hemoglobin A1c 5.7 <6.0 % [facility] Comment:Hemoglobin A1C Refer ence Range Adults: 4.8 - 6.0 % Non diabetic: < 6.0 % Goal: < 7.0 %Additional Action Suggested: > 8.0 %Note: Hemoglobin A1c results are invalid for patients with abnormal amounts of HbF. Blood transfusions may impact the HbA1c concentration in the patient sample. Estimated Average Glucose 117 mg/dL [facility] Comment:eAG = Estimated ave rage glucose which is %A1C expressed asaverage glucose, using the formula of the P3Z-BjbvkaoEkkxfsb Glucose study (ADAG), Diabetes Care, Vol.31,#8,Feb. 2007 Blood Venous blood specimen / Unknown 05/11/2025 9:51 AM EDT 05/11/2025 2:21 PM EDT us Vinayak Kaur MD LAB BLOOD ORDERABLES Final Result [facility] [address] [place] [phone] [phone] documented in this encounter Visit Diagnoses Diagnosis Normocytic anemia- Primary Unspecified anemia documented in this encounter Additional Health Concerns Assessment Noted Time PHQ-9 Depression Total Score: 19 025 2:36 PM EDT documented as of this encounter Care Teams Press Offbearer Relationship Specialty Start Date End Date Vinayak Kaur MD [address] [place] [phone] PCP - General Internal Medicine 03/17/21 documented as of this encounter
== END 2025-06-02 16:22 | disposition home or self-care (01) ==
LOC: HO.HWS 15:19
PROVIDERS: PCP Internal Medicine; Visit Provider Obstetrics & Gynecology
DX: Z01.419 Encounter for gynecological examination (general) (routine) without abnormal findings (principal)
CPT/HCPCS: 99396; 99459

== ENCOUNTER 2025-06-17 15:44 | Outpatient (REF) | payer MEDICAID, SELFPAY ==
--- NOTE | ~2025-06-17 | MM_ITS ---
EXAMINATION: MM SCREENING DIGITAL BREAST TOMOSYNTHESIS, BILATERAL CLINICAL INFORMATION: Screening. Asymptomatic. COMPARISON: Mammography: Comparison is made with available priors TECHNIQUE: Digital breast mammography with tomosynthesis is performed in both the craniocaudal and mediolateral oblique views along with computer-aided detection (CAD). FINDINGS: There are scattered areas of fibroglandular density. There are no significant masses, abnormal calcifications, or other abnormalities. MM/MM tomosynthesis screening BI IMPRESSION: No mammographic evidence of malignancy. ASSESSMENT: BI-RADS Category 1: Negative RECOMMENDATION: Routine annual mammography screening. 1 year F/U This examination should not preclude the clinical evaluation of a suspicious palpable abnormality. This patient's information was entered into a reminder system with a target due date for their next mammogram. Electronically signed by: Libertad Healy DO 06/21/2025 12:17 PM SERGE
--- OUTSIDE RECORDS SUMMARY | 2025-06-17 21:50 | XMS_ITS | Encounter Summary ---
Author Organization [employer] Address [address] [facility] 7t [place] [address] Care Team Providers Care Farm Loan Inspector Name Role Phone Vinayak Kaur MD Primary Care Provider [phone] Reason for Visit * Reason Onset Date Comments r/s appt 08/16/2022 Encounter Details Date Type Department Care Team ([facility] st Contact Info) Description 08/16/2022 Telephone [facility] MED & PEDS [address] [place] [address] Vinayak Kaur MD [address] [place] [address] r/s appt Social History Tobacco Use Types [...] flat tired incident. Please contact pt at [phone] documented in this encounter Plan of Treatment Not on file documented as of this encounter Visit Diagnoses Not on filedocumented in this encounter Care Teams Farm Loan Inspector Relationship Specialty Start Date End Date Vinayak Kaur MD [address] [place] [address] PCP - General Internal Medicine 03/17/21 documented as of this encounter
--- OUTSIDE RECORDS SUMMARY | 2025-06-17 21:50 | XMS_ITS | Encounter Summary ---
Author Organization [employer] Address [address] [facility] 7t [place] [address] Care Team Providers Care Community Education Coordinator Name Role Phone Vinayak Kaur MD Primary Care Provider [phone] Encounter Details Date Type Department Care Team ([facility] st Contact Info) Description 02/19/2025 Orders Only [facility] [address] [place] [address] Vinayak Kaur MD [address] [place] [address] Normocytic anemia (Primary Dx) Social History Tobacco [...] Reticulocytes Absolute 0.032 0.026 - 0.095 X10*6/uL [facility] Immature Retic Fraction 2.8(L) 3.0 - 15.9 % [facility] Retic HGB Equivalent 35.9(H) 30.0 - 35.0 pg [facility] Reticulocyte Percent 0.8 0.5 - 1.8 % [facility] Blood Venous blood specimen / Unknown 05/11/2025 9:51 AM EDT 05/11/2025 2:21 PM EDT us Vinayak Kaur MD LAB BLOOD ORDERABLES Final Result Performing Organization Address [facility]/ZIP Co de Phone Number [facility] [address] [place] [phone] * Ferritin (05/11/2025 9:51 AM EDT) Ferritin 135 10 - 250 ng/mL [facility] Blood Venous blood specimen / Unknown 05/11/2025 9:51 AM EDT 05/11/2025 2:09 PM EDT us Vinayak Kaur MD LAB BLOOD ORDERABLES Final Result Performing Organization Address [facility] Co de Phone Number [facility] [address] [place] [phone] * Iron And Total Iron Binding Capacity (05/11/2025 9:51 AM EDT) Iron 103 30 - 160 mcg/dL [facility] Total Iron Binding Capacity 266 228 - 428 mcg/dL [facility] Percent Iron Saturation 39 15 - 50 % [facility] Unsaturated Iron Binding 163 ug/dL [facility] Blood Venous blood specimen / Unknown 05/11/2025 9:51 AM EDT 05/11/2025 2:09 PM EDT us Vinayak Kaur MD LAB BLOOD ORDERABLES Final Result Performing Organization Address [facility] Co de Phone Number [facility] [address] [place] [phone] [phone] * Hemoglobin A1c (05/11/2025 9:51 AM EDT) Hemoglobin A1c 5.7 <6.0 % [facility] Comment:Hemoglobin A1C Refer ence Range Adults: 4.8 - 6.0 % Non diabetic: < 6.0 % Goal: < 7.0 %Additional Action Suggested: > 8.0 %Note: Hemoglobin A1c results are invalid for patients with abnormal amounts of HbF. Blood transfusions may impact the HbA1c concentration in the patient sample. Estimated Average Glucose 117 mg/dL [facility] Comment:eAG = Estimated ave rage glucose which is %A1C expressed asaverage glucose, using the formula of the X5Q-HcfxlawFumpvso Glucose study (ADAG), Diabetes Care, Vol.31,#8,Feb. 2007 Blood Venous blood specimen / Unknown 05/11/2025 9:51 AM EDT 05/11/2025 2:21 PM EDT us Vinayak Kaur MD LAB BLOOD ORDERABLES Final Result [facility] [address] [place] [address] [phone] documented in this encounter Visit Diagnoses Diagnosis Normocytic anemia- Primary Unspecified anemia documented in this encounter Additional Health Concerns Assessment Noted Time PHQ-9 Depression Total Score: 19 025 2:36 PM EDT documented as of this encounter Care Teams Community Education Coordinator Relationship Specialty Start Date End Date Vinayak Kaur MD [address] [place] [phone] PCP - General Internal Medicine 03/17/21 documented as of this encounter
--- OUTSIDE RECORDS SUMMARY | 2025-06-17 21:50 | XMS_ITS | Encounter Summary ---
Author Organization [employer] Address [address] [facility] 7t [place] [address] Care Team Providers Care Sales Supervisor Name Role Phone Vinayak Kaur MD Primary Care Provider [phone] Encounter Details Date Type Department Care Team (Late st Contact Info) Description 08/27/2022 Orders Only [facility] MEDICINE [address] [place] [address] Vinayak Kaur MD [address] [facility] [address] [place], [place] [phone] Other iron deficiency anemia (Primary Dx) Social [...] (02/07/2023 1:36 PM EDT) Color Urine Yellow [facility] Appearance Urine Cloudy [facility] PH 5.5 5.0 - 9.0 [facility] Glucose Urine UA Negative Negative mg/dL [facility] Urine Blood Negative Negative [facility] Specific Goodman - Urine 1.020 1.005 - 1.025 [facility] Urine Protein Negative Neg-Trace mg/dL [facility] Urine Ketones Trace Negative mg/dL [facility] Nitrite Urine Negative Negative [facility] Leukocyte Esterase Urine Negative Negative [facility] 02/07/2023 1:36 PM EDT 02/07/2023 2:23 PM EDT Vinayak Kaur MD LAB URINE ORDERABLES Final Result [facility] [address] [place] [phone] * Hematoxylin and Eosin Stain (12/05/2022 3:03 PM EDT) 12/05/2022 3:03 PM EDT 12/06/2022 7:16 AM EDT Narrative [facility] - 12/11/2022 11:39 AM EDT ----- ------- Name: Brenda Manzo Age/Sex: 47/F : 1975 Unit#: [id number] Attend Dr: Cedrick Durán MD Re12/05/22 Status: [facility] REF Location: [facility] Disch: ----- ------- SPEC : [id number] RECD: 12/06/22 STATUS: JESSICA JACQUELYN NUM: [id number] SABINE: 12/05/22-[address] [facility] [address]: Cedrick Durán MD ENTERED: 12/06/22 SP [...] A. CEDS Copies To: Vinayak Kaur MD [address] [place] [phone] Cedrick Durán MD [address] [place] [address] [phone] ----- ------- Signed (signature on file) Anahy Phelps 12/11/22 1139 ----- ------- END OF REPORT [facility] External Provider LAB BLO OD ORDERABLES Final Result [facility] [address] [place] [phone] * Pap Smear (11/05/2022 2:22 PM EDT) 11/05/2022 2:22 PM EDT 11/06/2022 8:45 AM EDT Narrative [facility] - 11/12/2022 2:11 PM EDT ----- ------- Name: Brenda Manzo Age/Sex: 47/F : 1975 Unit#: [id number] Attend Dr: Cedrick Durán MD Re11/05/22 Status: DEP [facility] Disch: ----- ------- SPEC : [id number] RECD: 11/06/22 STATUS: JESSICA VALLADARES NUM: [id number] SABINE: 11/05/[address] [facility] [address]: Cedrick Durán MD ENTERED: 11/06/22 SP TYPE: Pap Smr OTHR DR: Vinayak Kaur MD ORDERED: Pap Smear Interpretation Satisfactory for evaluation. Negative for intraepithelial lesion or malignancy. Coccobacilli consistent with shift in vaginal peyotn. HPV mRNA E6/E7: NOT DETECTED This assay detects E6/E7 viral messenger RNA (mRNA) from 14 high-risk HPV types (16, 18, 31, 33, 35, 39, 45, 51, 52, 56, 58, 59, 66, 68) HPV testing performed by [facility], [place], [place]. See reference laboratory portion of the EMR for entire report. Clinical Information LMP: Unknown Previous PAP test: Unknown Material Received ThinPrep-Cervical Copies To: Vinayak Kaur MD [address] [place] [address] [phone] Cedrick Durán MD [address] [place], [place] [address] [phone] ----- ------- Signed (signature on file) Adalgisa Fauzia Palacios 11/12/22 1411 ----- ------- END OF REPORT [facility] External Provider LAB CYT OLOGY ORDERABLES Final Result Performing Organization Address [facility] de Phone Number [facility] [address] [place] [phone] * HPV mRNA E6/E7 w/Reflex to HPV Genotypes 16, 18/45 (11/05/2022 2:22 PM EDT) HPV nRNA E6/E7 Not Detected Not Detected [facility] Comment:Methodology: Transcr iption-Mediated AmplificationThis assay detects E6/E7 viral messenger RNA (mRNA) from 14high-risk HPV types (16,18,31,33,35,39,45,51,52,56,58,59,66,68).Cervical sources are required for HPV testing.If a vaginal source from a patient who has had atotal hysterectomy with removal of cervix wassubmitted, please contact the testing laboratoryfor alternative testing options.For additional information, please refer tohttp://education.EPIS/faq/YGM384n8(This link if provided for information/educational purposes only.)THIS TEST WAS PERFORMED AT:[facility] [place] [phone] DASILVA MD HPV mRNA E6/E7 [facility] HPV 16 RNA [facility] HPV 18/45 RNA [facility] 11/05/2022 2:22 PM EDT 11/06/2022 8:45 AM EDT [facility] External Provider LAB CYT OLOGY ORDERABLES Final Result Performing Organization Address [facility] Co de Phone Number [facility] [address] [place] [address] [phone] * Chlamydia/N. Gonorrhoeae RNA, TMA, Urogenitial (11/05/2022 1:23 PM EDT) CT PCR NOT DETECTED Not Detect. [facility] Comment:A not detected test result [...] psychologicalconsequences. NG PCR NOT DETECTED Not Detect. [facility] Comment:A not detected test result [...] PM EDT 11/05/2022 5:36 PM EDT Narrative [facility] - 11/06/2022 10:09 AM EDT Vaginal us [facility] Exter nal Provider LAB MICROBIOLOGY - GENERAL ORDERABLES Final Result [facility] [address] [place] [address] [phone] * (ABNORMAL) CBC auto differential (08/30/2022 9:30 AM EST) White Blood Cell Count 4.9 3.8 - 10.8 Thousand/ uL [facility] Red Blood Cell Count 3.84 3.80 - 5.10 Million/u L [facility] Hemoglobin 11.8 11.7 - 15.5 g/dL [facility] Hematocrit 34.6(L) 35.0 - 45.0 % [facility] MCV 90.1 80.0 - 100.0 fL [facility] MCH 30.7 27.0 - 33.0 pg [facility] MCHC 34.1 32.0 - 36.0 g/dL [facility] RDW 13.5 11.0 - 15.0 % [facility] Platelet Count 286 140 - 400 Thousand/ uL [facility] MPV 10.2 7.5 - 12.5 fL [facility] Absolute Neutrophils 2,029 1,500 - 7,800 cells/uL [facility] Absolute Lymphocytes 2,200 850 - 3,900 cells/uL [facility] Absolute Monocytes 392 200 - 950 cells/uL [facility] Absolute Eosinophils 211 15 - 500 cells/uL [facility] Absolute Basophils 69 0 - 200 cells/uL [facility] Neutrophils 41.4 % [facility] Lymphocytes 44.9 % [facility] Monocytes 8.0 % [facility] Eosinophils 4.3 % [facility] Basophils 1.4 % [facility] Blood Venous blood specimen / Unknown 08/30/2022 9:30 AM EST 08/30/2022 9:31 AM EST us Thevenin Beauzile MD LAB BLOOD ORDERABLES Final Result [facility] [address] [facility] [place] [address] [facility] [address], ([address]) [place] [phone] documented in this encounter Visit Diagnoses Diagnosis Other iron deficiency anemia- Primary documented in this encounter Care Teams Sales Supervisor Relationship Specialty Start Date End Date Vinayak Kaur MD [address] [place] [phone] PCP - General Internal Medicine 03/17/21 documented as of this encounter
--- OUTSIDE RECORDS SUMMARY | 2025-06-17 21:50 | XMS_ITS | Encounter Summary ---
Author Organization [employer] Address [address] [facility] 7t [place] [address] Care Team Providers Care Banquet Director Name Role Phone Vinayak Kaur MD Primary Care Provider [phone] Encounter Details Date Type Department Care Team ([facility] st Contact Info) Description 03/12/2023 Orders Only [facility] MED & PEDS [address] [place], [place] [phone] Vinayak Kaur MD [address] [place] [address] Chronic low back pain, unspecified back pain [...] documented as of this encounter Care Teams Banquet Director Relationship Specialty Start Date End Date Vinayak Kaur MD [address] [place] [address] PCP - General Internal Medicine 03/17/21 documented as of this encounter
--- OUTSIDE RECORDS SUMMARY | 2025-06-17 21:50 | XMS_ITS | Encounter Summary ---
Author Organization [employer] Address [address] [facility] 7t [place] [address] Care Team Providers Care Professor Of Literature Name Role Phone Vinayak Kaur MD Primary Care Provider [phone] Reason for Visit * Reason Comments Med Refill Encounter Details Date Type Department Care Team ([facility] st Contact Info) Description 09/26/2022 Refill [facility] MEDICINE [address] [place] [address] Janette Orozco CN [address] [place] [address] Dysmenorrhea (Primary Dx) Social History Tobacco Use [...] documented as of this encounter Care Teams Professor Of Literature Relationship Specialty Start Date End Date Vinayak Kaur MD [address] [place] [address] PCP - General Internal Medicine 03/17/21 documented as of this encounter
--- OUTSIDE RECORDS SUMMARY | 2025-06-17 21:50 | XMS_ITS | Encounter Summary ---
Author Organization [employer] Address [address] [facility] [address] 7[address] [place] [address] Care Team Providers Care Payroll Auditor Name Role Phone Vinayak Kaur MD Primary Care Provider [phone]- [phone] Encounter Details Date Type Department Care Team ([facility] st Contact Info) Description 01/15/2024 Orders Only [facility] CH[facility] MED & PEDS [address] [place] [address] Vinayak Kaur MD [address] [place] [address] Other proteinuria (Primary Dx); Low vitamin D [...] documented as of this encounter Care Teams Payroll Auditor Relationship Specialty Start Date End Date Vinayak Kaur MD [address] [place] [address] [place] [address] PCP - General Internal Medicine 03/17/21 documented as of this encounter
--- OUTSIDE RECORDS SUMMARY | 2025-06-17 21:50 | XMS_ITS | Clinical Summary ---
Author Organization [employer] [facility] Address [address] [place] [address] Care Team Providers Care Machine Setter And Repairer Name Role Phone Britany Johnson MD Primary Care Provider Unav ailable Surgical History Surgery Date Site/Laterality Comments COLONOSCOPY PROCEDURE: [place] COLONOSCOPY STOMA DX INCLUDING COLLJ SPEC SPX; [...] Depression Screening 07/15/2024 COVID-19 Vaccine (1 - 2024-2 6 season) 2025 Influenza Vaccine (#1) 2025 03/31/2010 [...] age to complete this topic Care Teams Machine Setter And Repairer Relationship Specialty Start Date End Date Britany Johnson MD PCP - General Internal Medicine 12/27/15
--- OUTSIDE RECORDS SUMMARY | 2025-06-17 21:50 | XMS_ITS | Clinical Summary ---
Author Organization [employer] Address [address] [facility] [address] [place] [address] Care Team Providers Care Pit Recorder Name Role Phone Vinayak Kaur MD Primary Care Provider [phone] Allergies No known active allergies Medications amitriptyline [...] Department Care Team Description 2025 Results Follow-Up [facility] [address] [place] [address] Raegan Schwartz RN Hemoglobin A1c, Iron And Total Iron Binding Capacity, Ferritin, Reticulocyte Count 04/19/2025 2:30 PM EDT Office Visit [facility] [address] [place] [address] Vinayak Kaur MD Normocytic anemia (Primary Dx); [...] the past 12 months, has t he [employer], oil or water [employer] threatened to shut off services in your [...] EDT) Iron 103 30 - 160 mcg/dL [facility] Total Iron Binding Capacity 266 228 - 428 mcg/dL [facility] Percent Iron Saturation 39 15 - 50 % [facility] Unsaturated Iron Binding 163 ug/dL [facility] Blood Venous blood specimen / Unknown 05/11/2025 9:51 AM EDT 05/11/2025 2:09 PM EDT us Vinayak Kaur MD LAB BLOOD ORDERABLES Final Result [facility] [address] [place] [address] [phone] * (ABNORMAL) Reticulocyte Count (05/11/2025 9:51 AM EDT) Reticulocytes Absolute 0.032 0.026 - 0.095 X10*6/uL [facility] Immature Retic Fraction 2.8(L) 3.0 - 15.9 % [facility] Retic HGB Equivalent 35.9(H) 30.0 - 35.0 pg [facility] Reticulocyte Percent 0.8 0.5 - 1.8 % [facility] Blood Venous blood specimen / Unknown 05/11/2025 9:51 AM EDT 05/11/2025 2:21 PM EDT Vinayak Kaur MD LAB BLOOD ORDERABLES Final Result Performing Organization Address [facility]/ZIP Co de Phone Number [facility] [address] [place] [phone] * Hemoglobin A1c (05/11/2025 9:51 AM EDT) Hemoglobin A1c 5.7 <6.0 % [facility] Comment:Hemoglobin A1C Refer ence Range Adults: 4.8 - 6.0 % Non diabetic: < 6.0 % Goal: < 7.0 %Additional Action Suggested: > 8.0 %Note: Hemoglobin A1c results are invalid for patients with abnormal amounts of HbF. Blood transfusions may impact the HbA1c concentration in the patient sample. Estimated Average Glucose 117 mg/dL [facility] Comment:eAG = Estimated ave rage glucose which is %A1C expressed asaverage glucose, using the formula of the I6T-AlgqfzeSiwtvof Glucose study (ADAG), Diabetes Care, Vol.31,#8,Feb. 2007 Blood Venous blood specimen / Unknown 05/11/2025 9:51 AM EDT 05/11/2025 2:21 PM EDT us Vinayak Kaur MD LAB BLOOD ORDERABLES Final Result Performing Organization Address City/[facility]/ZIP Co de Phone Number [facility] [address] [place] [phone] * Ferritin (05/11/2025 9:51 AM EDT) Ferritin 135 10 - 250 ng/mL [facility] Blood Venous blood specimen / Unknown 05/11/2025 9:51 AM EDT 05/11/2025 2:09 PM EDT us Vinayak Kaur MD LAB BLOOD ORDERABLES Final Result [facility] [address] [place] [phone] * (ABNORMAL) Lipid Panel, Standard (02/18/2025 2:39 PM EDT) Triglycerides 58 <150 mg/dL [facility] Comment:Desirable Triglyceri de: less than 150 mg/dLBorderline High Triglyceride 150-199 mg/dLHigh Triglyceride: 200-499 mg/dLVery High Triglyceride: greater than or equal to 5OO mg/dL Cholesterol 255(H) <200 mg/dL [facility] Comment:Desirable Cholestero l: less than 200 mg/dLBorderline High Cholesterol: 200-239 mg/dLHigh Cholesterol: greater than 239 mg/dL LDL Cholesterol Calculated 160(H) <100 mg/dL [facility] Comment:Desirable LDL: less than 100 mg/dLNear Optimal/Above Optimal LDL: 110- 129 mg/dLBorderline High LDL: 130-159 mg/dLHigh LDL: 160-189 mg/dLVery High LDL: greater than or equal to 190 mg/dL HDL Cholesterol 84 >40 mg/dL [facility] Comment:Desirable HDL: great er than 40 mg/dL Note: This HDL assay may give artificially low results in patients with liver disease. Blood Venous blood specimen / Unknown 02/18/2025 2:39 PM EDT 02/18/2025 5:30 PM EDT us Vinayak Kaur MD LAB BLOOD ORDERABLES Final Result [facility] [address] [place] [phone] * BI Mammogram Screening Tomosynthesis Bilateral (06/04/2024 3:50 PM EST) Anatomical Region Laterality Modality Breast Bilateral Mammography 06/04/2024 3:50 PM EST Narrative 06/15/2024 9:44 AM EST [facility] [address] [place] [address] Mammography Report Signed Patient: Brenda Manzo MR#: [id number] 0 : 1975 Acct:[id number] Age/Sex: 49 / F ADM Date: 06/04/24 Loc: HO.MAMMO Attending Dr: Vinayak Kaur MD Ordering Physician: Vinayak Kaur MD Results: 1 Negative Date of Service: 06/04/24 Follow Up: 1 Year From [facility] Mammogram Procedure(s): MM tomosynthesis screening BI Accession Number(s): [id number] cc: Vinayak Kaur MD EXAMINATION: MM SCREENING [...] 06/15/24 09 DD/ 1550 TD/TT: 06/04/24 1606 X Ray Inspector: Procedure Note Donotreynainterpreter, Image - 06/15/20[facility] [address] [place], [place] [address] Mammography Report Signed Patient: Brenda ManzoMR#: [id number] 0 : 1975Acct:[id number] Age/Sex: 49 / FADM Date: 06/04/24 Loc: HO.MAMMO Attending Dr: Vinayak Kaur MD Ordering Physician: Vinayak Kaur MDResults: 1 Negative Date of Service: 06/04/24Follow Up: 1 Year From Orig ina Mammogram Procedure(s): MM tomosynthesis screening BI Accession Number(s): [id number] cc: Vinayak Kaur MD EXAMINATION: MM SCREENING [...] 06/15/24 09 DD/ 1550 TD/TT: 06/04/24 1606 X Ray Inspector: us Vinayak Kaur MD IMG BI PROCEDURES Final Res ult * Hepatitis A,B,C Profile (01/15/2024 11:59 AM EDT) Hepatitis A IgM Nonreactive Nonreactive [facility] Comment:IgM antibodies to AVENDAÑO V not detected; does not exclude earlyacute or recovered HAV infection. ~Hepatitis B Surface Antibody REACTIVE Nonreactive [facility] Comment:REACTIVE: > 11.99 mI U/mL Hepatitis B Core Antibody Nonreactive Nonreactive [facility] Hepatitis C Antibody Nonreactive Nonreactive [facility] Comment:Antibodies to HCV no t detected; does not exclude early acuteHCV infection. Hepatitis B Surface Ag Negative Negative [facility] Blood Venous blood specimen / Unknown 01/15/2024 11:59 AM EDT 01/15/2024 2:07 PM EDT us Vinayak Kaur MD LAB BLOOD ORDERABLES Final Result [facility] [address] [place] [address] [phone] * HPV mRNA E6/E7 w/Reflex to HPV Genotypes 16, 18/45 (11/05/2022 2:22 PM EDT) HPV nRNA E6/E7 Not Detected Not Detected [facility] Comment:Methodology: Transcr iption-Mediated AmplificationThis assay detects E6/E7 viral messenger RNA (mRNA) from 14high-risk HPV types (16,18,31,33,35,39,45,51,52,56,58,59,66,68).Cervical sources are required for HPV testing.If a vaginal source from a patient who has had atotal hysterectomy with removal of cervix wassubmitted, please contact the testing laboratoryfor alternative testing options.For additional information, please refer tohttp://education.[employer]/faq/YWU356a2(This link if provided for information/educational purposes only.)THIS TEST WAS PERFORMED AT:[employer] [place] [phone] DASILVA MD HPV mRNA E6/E7 TNP [facility] HPV 16 RNA TNP [facility] HPV 18/45 RNA TNP [facility] 11/05/2022 2:22 PM EDT 11/06/2022 8:45 AM EDT [facility] External Provider LAB CYT OLOGY ORDERABLES Final Result [facility] [address] [place] [phone] * Pap Smear (11/05/2022 2:22 PM EDT) 11/05/2022 2:22 PM EDT 11/06/2022 8:45 AM EDT Narrative [facility] - 11/12/2022 2:11 PM EDT ----- ------- Name: Brenda Manzo Age/Sex: 47/F : 1975 Unit#: [id number] Attend Dr: Cedrick Durán MD Re11/05/22 Status: DEP REF Location: HOAleLNP Disch: ----- ------- SPEC : [id number] RECD: 11/06/22 STATUS: JESSICA VALLADARES NUM: [id number] SABINE: 11/05/22 [facility] DR: Cedrick Durán MD ENTERED: 11/06/22 SP [...] 59, 66, 68) HPV testing performed by [employer], [place], [place]. See reference laboratory portion of the EMR for entire report. Clinical Information LMP: Unknown Previous PAP test: Unknown Material Received ThinPrep-Cervical Copies To: Vinayak Kaur MD [address] [place] [address] [phone] Cedrick Durán MD [address] [place] [phone] ----- ------- Signed (signature on file) Adalgisa Fauzia Palacios 11/12/22 1411 ----- ------- END OF REPORT [facility] External Provider LAB CYT OLOGY ORDERABLES Final Result [facility] [address] [place] [phone] * HIV 1/2 ANTIGEN/ANTIBODY,FOURTH GENERATION W/RFL (04/11/2021 9:58 AM EDT) HIV-1/2 ANTIGEN AND ANTIBODIES, 4TH GENERATION W/ REFLEX NON-REACT TOM NON-REACT TOM [facility] Comment: HIV-1 antigen and HIV-1/HIV-2 [...] purpose. For additional information please refer to http://education.[employer]/faq/VQU573 (This link is being provided for informational/ educational purposes only.) The performance of this assay has not been clinically validated in patients less than 2 years old. 04/11/2021 9:58 AM EDT Vinayak Kaur MD LAB BLOOD ORDERABLES Final Result Performing Organization Address City/[facility]/ZIP Co de Phone Number [facility] [address] from Last 3 Months or Most Recently Relevant to Health Maintenance Insurance [facility] [employer] [employer] [employer] Care Teams Pit Recorder Relationship Specialty Start Date End Date Vinayak Kaur MD [address] [place] [phone] PCP - General Internal Medicine 03/17/21
== END 2025-06-17 15:45 | disposition home or self-care (01) ==
LOC: HO.MAMMO 15:44
PROVIDERS: Visit Provider Internal Medicine
DX: Z12.31 Encounter for screening mammogram for malignant neoplasm of breast (principal)
CPT/HCPCS: 77063; 77067

== ENCOUNTER → 2025-06-17 16:00 | Outpatient (BNV) | payer MEDICAID, SELFPAY | PROVIDERS: Visit Provider Internal Medicine | DX: Z12.31 Encounter for screening mammogram for malignant neoplasm of breast (principal) | CPT/HCPCS: 77063; 77067 ==